=== PATIENT | female | born 1945 | race Caucasian/White ===

== ENCOUNTER 2016-11-06 12:14 | Inpatient (IN) | payer MEDICARE, BC ==
--- NOTE | 2016-11-06 12:39 | RAD ---
INDICATION: Code souza COMPARISON: None TECHNIQUE: Noncontrast axial source images were acquired from the skull base to the vertex. FINDINGS: Ventricles/sulci: The ventricles and cisterns are normal in size and configuration for age. Brain parenchyma: There is no focal parenchymal finding, evidence of intracranial mass, or intracranial mass effect. Intracranial hemorrhage:None. Extra-axial spaces: There are no abnormal extra axial fluid collections or evidence of extra-axial mass. Calvarium: There is no calvarial fracture or other calvarial abnormality. Scalp: There is no evidence of scalp or extracalvarial soft tissue abnormality. Paranasal sinuses/mastoid: The paranasal sinuses and mastoid air cells are clear. Other: There are vascular calcifications. IMPRESSION: No acute intracranial findings Findings called to ED at 1236 hours
[2016-11-06] MEDS ORDERED: Aspirin TAB* 325 MG PO ONE (13:12)
--- NOTE | 2016-11-06 13:39 | RAD ---
HISTORY: Stroke COMPARISONS: August 21, 2016 VIEWS:1: Single frontal portable view of the chest at 1:20 PM FINDINGS: LINES AND TUBES: None. CARDIOMEDIASTINAL SILHOUETTE: The cardiomediastinal silhouette is normal for portable technique. PLEURA: The costophrenic angles are sharp. No pleural abnormalities are noted. LUNG PARENCHYMA: The lungs are clear. ABDOMEN: The upper abdomen is clear. There is no subphrenic gas. BONES AND SOFT TISSUES: No bone or soft tissue abnormalities are noted. IMPRESSION: NO ACTIVE CARDIOPULMONARY DISEASE.
[2016-11-06 13:42] LABS: Hematocrit 39 % (35-47); Hemoglobin 12.7 g/dl (12.0-16.0); Mean Corpuscular HGB Conc 33 g/dl (31-36); Mean Corpuscular Hemoglobin 29 pg (27-31); Mean Corpuscular Volume 87 fL (80-97); Mean Platelet Volume 9 um3 (7.4-10.4); Red Blood Count 4.41 10^6/ul (4.0-5.4); Red Cell Distribution Width 15 % (10.5-15); White Blood Count 8.3 10^3/ul (3.5-10.8)
[2016-11-06 13:54] LABS: Albumin 3.6 g/dL (3.2-5.2); BUN/Creatinine Ratio 32.1 (8-20); Calcium 9.4 mg/dL (8.6-10.3); EGFR African American 146.2 (>60); EGFR Non-African American 113.7 (>60); Globulin 3.2 g/dL (2-4); HDL Cholesterol 57.9 mg/dL; Potassium 3.7 mmol/L (3.5-5.0); Total Bilirubin 0.3 mg/dL (0.2-1.0); Total Protein 6.8 g/dL (6.4-8.9)
[2016-11-06 13:55] LABS: Troponin I 0.01 ng/mL (<0.04)
[2016-11-06] MEDS ORDERED: Acetaminophen TAB* 325 MG PO PRN (14:38)
[2016-11-06] MEDS ORDERED: Ondansetron INJ* 2 MG/ML VIAL IV PRN (14:38)
[2016-11-06 14:40] LABS: Urine Bacteria Absent (Absent); Urine Bilirubin Negative (Negative); Urine Glucose Negative (Negative); Urine Nitrite Negative (Negative)
[2016-11-06] MEDS ORDERED: Dextrose 50% Syringe 50 ML* 25 GM/50 ML SYRINGE IV PUSH PRN (14:50)
[2016-11-06] MEDS ORDERED: Nicotine Inhaler* 10 MG AMP INH PRN (14:58)
[2016-11-06 15:11] LABS: C Reactive Protein 21.47 mg/L (< 5.00)
[2016-11-06] MEDS ORDERED: Mouth Piece, Nicotine* 1 EACH CARTRIDGE INH SCH (15:14)
--- NOTE | 2016-11-06 15:17 | RAD ---
HISTORY: Neuropathy after fall, hyperreflexia COMPARISONS: None TECHNIQUE: Multiple contiguous axial CT scans were obtained of the cervical spine without intravenous contrast, with coronal and sagittal multiplanar reformations. FINDINGS: BRAIN: The visualized brain is unremarkable CENTRAL CANAL: Evaluation of the central canal is limited on CT technique; however, there is no obvious canalicular mass or epidural hemorrhage. ALIGNMENT: There is straightening of the cervical lordosis. VERTEBRAL BODIES: There is multilevel anterolateral marginal osteophyte formation. There is no displaced fracture there is a well-corticated bone fragment along the right facet joint at C3. JOINTS: There is facet osteoarthritic change. There is no subluxation or dislocation. MUSCULATURE: Unremarkable INTERVERTEBRAL DISCS: There is diffuse loss of intervertebral disc height. AXIAL IMAGES: C2-C3: There is no osseous neural foraminal narrowing or central canal stenosis. C3-C4: There is bilateral uncovertebral and facet hypertrophy. There is severe bilateral neural foraminal narrowing. There is central canal stenosis. C4-C5: There is bilateral uncovertebral and facet hypertrophy. There is severe bilateral foraminal narrowing. There is no significant osseous central canal stenosis. C5-C6: There is bilateral uncovertebral and facet hypertrophy. There is moderate bilateral foraminal narrowing. There is no osseous stenosis C6-C7: There is no osseous neural foraminal narrowing or central canal stenosis. C7-T1: There is no osseous neural foraminal narrowing or central canal stenosis. SOFT TISSUES: The visualized soft tissues of the neck are unremarkable. The prevertebral fat stripe is preserved. OTHER: None. IMPRESSION: DEGENERATIVE DISC DISEASE AND OSTEOARTHRITIS. THERE IS NO ACUTE OSSEOUS INJURY TO THE CERVICAL SPINE
[2016-11-06] MEDS ORDERED: Albuterol HFA INHALER* 8 gm MDI INH PRN (15:18)
--- NOTE | 2016-11-06 15:35 | RAD ---
HISTORY: Elbow swelling and pain status post fall COMPARISONS: None VIEWS: 3, Frontal, lateral, and oblique views of the right elbow FINDINGS: BONE DENSITY: Normal. BONES: There is no displaced fracture. There are enthesophytes of the olecranon JOINTS: There is no arthropathy. ALIGNMENT: There is no dislocation. SOFT TISSUES: Unremarkable. OTHER FINDINGS: None. IMPRESSION: NO ACUTE OSSEOUS INJURY. IF SYMPTOMS PERSIST, RECOMMEND REPEAT IMAGING.
--- NOTE | 2016-11-06 15:41 | RAD ---
Indication: Right knee pain after fall 2 views of the right knee demonstrates calcifications along the quadriceps tendon. Calcification is noted along the infrapatellar tendon as well. No joint effusion is noted. IMPRESSION: No fractures identified. Calcifications along the quadriceps tendon and infrapatellar tendon.
--- NOTE | 2016-11-06 16:33 | CONS ---
CONSULTATION REPORT: DATE OF CONSULT: 11/06/16 REQUESTING PHYSICIAN: Dr. Nam. REASON FOR CONSULT: Facial weakness, difficulty walking, dizziness. HISTORY OF PRESENT ILLNESS: Lakshmi Molina is a 71-year-old woman with a history of hypertension, diabetes, COPD, high cholesterol, stroke, anxiety, depression, who now comes in with weakness, difficulty walking in the setting of a recent fall, injury to the right knee and elbow, along with cough, right facial palsy, and headache. At baseline she has COPD with shortness of breath and coughing, difficulty with dizziness intermittently for 2 months. There has been an increased frequency of urination, and recent increase in headaches. Lakshmi indicates about 2 to 3 days ago, she was on her way back from store when she tripped and fell. She hurt her right leg and particularly landed on her right knee with a slight breakage of the skin on her knee, and on her right arm. She demonstrated an area near her right elbow which showed area that was healing, however, was surrounded by redness and warmth. Her right knee was enlarged and warm. She also has a history of intermittent numbness in her hands at baseline and now her hands are constantly numb. Around the same time, she started getting change in speech and change in facial expression. She was worried about stroke as she had an event 20 years ago where she sneezed repeatedly and her mouth went crooked; she was told that she had a stroke. Of note, she denies any recent bug bites or rashes. There has been some pain in the right axillary area off and on for a long time. At baseline, she is supposed to be wearing oxygen, she has COPD and continues to smoke. She indicates she does not wear oxygen because she has cats that will alexandra after the oxygen cord. Her son indicated that her walking is so severe, she did have a hard time walking a few feet. Her legs are weak, but there is no numbness of the legs. She does get short of breath when she walks. When asked about urination, she indicates her frequency has increased and she goes every 15 minutes. She has had no incontinence. There has been no change in smell of urine and no burning with urination. PAST MEDICAL HISTORY: Ms. Molina's past medical history includes diabetes, type 2; hypertension; high cholesterol; depression; anxiety; COPD. She has had previous hysterectomy with bilateral salpingo-oophorectomy. She follows with Dr. Winn at [facility]. MEDICATIONS: She had on her list, but did not know the doses and frequency, they include: 1. Advair. 2. Fluticasone propionate. 3. Spiriva. 4. ProAir. 5. Valsartan. 6. Atorvastatin. 7. Buspirone. 8. Metformin. 9. Amlodipine. 10. Glipizide. 11. Citalopram. She believes most of the medications are once a day. ALLERGIES: She denies any drug allergies. FAMILY HISTORY: Includes a mother who in her 70s with bad heart and breast cancer. Father who around 68 years of age of heart disease. She is not in contact with her siblings. She did have one brother who of cirrhosis of liver in the setting of alcohol use and another sister, who of polio and a bad kidney. Her son at bedside is alive and well, and she had a daughter who in a motor vehicle accident. SOCIAL HISTORY: Lakshmi Molina lives with her , who she describes as a quadriplegic. He has multiple sclerosis. She is his primary caregiver. Her son at bedside indicates that he and his daughter are going to take care of his father while she is in hospital. PHYSICAL EXAM: Lakshmi Molina's blood pressure was 186/58, her pulse was 94, respiratory rate 23, saturation 95%, and temperature is 97.2 degrees Fahrenheit. She had a regular cardiac rhythm. Her lungs had rhonchi on the right, clear on the left. No carotid bruit. Poor hygiene was noted. There was a lac on the right arm above the elbow with redness and warmth. Small lac on the knee with a warm swollen right knee and question of some discoloration on the right leg compared to the left. Her peripheral pulses were intact in the dorsalis pedis and posterior tibial. No other rashes were noted. She was awake, alert. She showed appropriate concern, frustration over cost of getting the hearing aids, the potential of being admitted due to her 's problems , and was clearly able to express her concerns. Her pupils were equal and responsive to light from 2 to 1 mm. Her fundi were hard to appreciate. She had full extraocular movements with no nystagmus, full saha to confrontation. Her facial expression was asymmetric with a right peripheral 7th nerve palsy. She could not completely close the right eye; it remained open at about 2 mm with effort to close it. Her facial sensation was equal, palate was upgoing, and tongue was midline. Of note, dry mucosa was noted. Sternocleidomastoid and trapezius were 5/5 in strength. Hearing to finger rub was decreased on the left hand side. There was no pronator drift. She gave good strength in her upper extremities and in her lower extremities with the exception of right knee flexion, which was painful. Knee extension, she was able to give good strength. Her reflexes, however, were brisk 3+ throughout with the exception of the ankles that were 2+. Toes were equivocal. Vibration sensation was felt briefly at the toes, decreased at the ankles by 20 seconds. Proprioception was intact. She denied any asymmetry of pinprick, cold, or light touch. She was able to do [id number] movements with the arms and [id number] movements in the left leg, the right leg was too painful. Gait was not tested given clinical status. LABORATORY DATA: Includes CBC which is within normal limits with a white count of 8.3. Her INR and PTT were normal. Her complete metabolic panel showed a BUN and creatinine ratio which is elevated at 32.1 and glucose was low at 66. She had a nonfasting lipid profile, which showed a total cholesterol of 292, LDL 206, HDL 57.9, and triglycerides 139. Her liver function tests were otherwise within normal limits and lactate was 0.8. IMPRESSION AND PLAN: Lakshmi Molina is a 71-year-old woman with a history of hypertension, diabetes, chronic obstructive pulmonary disease, high cholesterol , history of stroke, anxiety, depression, now with weakness, increased bilateral hand numbness, and difficulty walking in the setting of recent fall, injury to her right knee and elbow, cough, right facial palsy, headache, all in the setting of being primary caregiver for her who is described to be a quadriplegic, requiring full care secondary to multiple sclerosis. At this time, given the constellation of symptoms, I would admit her to hospital. 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 Given, however, the timing of her other symptoms and difficulty walking, I would proceed in getting an MRI of the brain. We will check Lyme serology and start her on doxycycline. I would use artificial tears for eyes during the day and Lacri-Lube to protect her eye at night. She does have history of intermittent numbed hands before fall and now constantly numbed hands in the setting of hyperreflexia as well as worsening of walking after a fall. I will check MRI of the cervical spine for myelopathy, and if it will take time before obtaining this, I would get a CT of the C-spine to ensure stability now. Infection certainly may be playing a role in her presentation. Differential diagnosis includes infection in the LANGUAGE INTERPRETER with Lyme, potential pneumonia or chest process, and chest x-ray is pending as well as infection of lacerations from her fall. She has also had increased frequency of urination and I would check a urinalysis. She has had trauma to her right arm and her right knee and needs further evaluation in this regard. Respiratory status is of concern not only from the infection standpoint, but she is also short of breath at baseline with chronic obstructive pulmonary disease and continues to smoke. She notes that she should be on oxygen, but is not and one must question whether this may be playing a role in her endurance and weakness with walking. She will need PT assessment. Also suggests Social Work involvement as the patient is primary caregiver for her . There will be need to assess services, safety, walking aids to ensure not only her health, but also health of the family. TIME SPENT: An hour and 25 minutes was spent in patient's care and case was discussed with hospitalist team. [id number]/[facility] #: [id number] LORETO
[2016-11-06] MEDS: Insulin LISPRO* 1 UNITS UNIT SUBCUT SCH (17:28)
[2016-11-06] MEDS: DOXYcycline CAP(*) 100 MG PO SCH ×2 (17:34→21:41)
[2016-11-06] MEDS: Nicotine PATCH 14 MG/24 HR* PATCH TRANSDERM SCH (17:38)
[2016-11-06] MEDS: Artificial Tears* 15 ML BTL RIGHT EYE SCH ×5 (17:39→22:58)
--- NOTE | 2016-11-06 18:20 | HP ---
CC: Dr. Winn* MEDICINE HISTORY AND PHYSICAL: DATE OF ADMISSION: 11/06/16 PROVIDER: Catie Banerjee NP ATTENDING PHYSICIAN: Dr. Shaneka Figueroa * (as dictated by Catie Banerjee NP). CONSULTING PHYSICIAN: Dr. Gertrudis Miramontes. PRIMARY CARE PROVIDER: Dr. Yamilet Winn. CHIEF COMPLAINT: Right facial droop and recent fall. HISTORY OF PRESENT ILLNESS: Ms. Lakshmi Molina is a 71-year-old female, who presents today after sustaining a fall 2 days ago. The patient states that she was coming home from a store, had a mechanical fall when she tripped on the sidewalk and fell on her right side. She was helped up by her granddaughter, but did not pursue any further evaluation at that time. She denies any injury to her head or loss of consciousness. However, since that time, she reports feeling intermittent dizziness as well as difficulty speaking. She also endorses new right facial droop that first appeared 2 days ago. The patient was seen by her 's caregiver from visiting nurse services, who recommended she come into the ER for further evaluation. The patient also reports a history of COPD and states at baseline, she cannot walk more than a few feet without becoming short of breath. She does not wear a home oxygen due to her cats playing with her tubing, and still smokes a pack a day of cigarettes. Of note, the patient is a full caregiver of her who is a quadriplegic secondary to MS. Here in the ER, the patient was a Code Vieyra, though her initial CT scan of the brain showed no acute intracranial findings. The patient denies any recent fever, chills, cold, or flu symptoms. She denies any changes to her appetite. She denies chest pain, lower extremity swelling, orthopnea, or palpitations. She denies any hemoptysis, although she does endorse dyspnea with exertion, which she states is chronic as well as a nonproductive cough. She denies abdominal pain, but reports nausea on occasion , which has been ongoing for several months. She denies any dysuria. She does report tingling and numbness to both hands. She states she is hard of hearing at baseline, but denies any new joint or muscle pains and rashes. PAST MEDICAL HISTORY: Per the patient: 1. Type 2 diabetes. 2. Hypertension. 3. Hyperlipidemia. 4. Anxiety. 5. Depression. 6. COPD. 7. Suspected history of CVA approximately 20 years ago. MEDICATIONS: Home medications which have been confirmed with the patient's PCP: 1. Albuterol 2 puffs inhaled q.6 hours p.r.n. 2. Valsartan 320 mg daily. 3. Spiriva 1 capsule inhaled daily. 4. Metformin 500 mg with meals. 5. Glipizide 10 mg b.i.d. 6. Advair 500/50 one puff inhaled b.i.d. 7. Citalopram 20 mg daily. 8. Buspirone 7.5 mg b.i.d. 9. Atorvastatin 40 mg daily. 10. Amlodipine 2.5 mg daily. ALLERGIES: Include CODEINE. FAMILY HISTORY: She reports a mother with history of heart disease and diabetes and a father with history of heart disease. SOCIAL HISTORY: The patient smokes a pack per day. She has been smoking since the age of 12. She denies any alcohol or illicit drug use. She lives at home. She has always worked from home. She is currently the full caregiver for her , who has multiple sclerosis and is a quadriplegic. Her healthcare proxy is her and her son, David Velasco, who can be reached at [phone]. REVIEW OF SYSTEMS: As per HPI. PHYSICAL EXAMINATION GENERAL: Ms. Molina is a 71-year-old female who is lying in ED stretcher, in no acute distress. She has a visible right facial droop. She is mildly disheveled. VITAL SIGNS: Temperature 97.2, heart rate 94, respiratory rate 18, blood pressure 156/76, and O2 saturation is 95% on room air. HEENT: Head is atraumatic, normocephalic. Face: The patient does have a right - sided facial droop, extends from the eye to the mouth. Sclerae are anicteric. Oral mucosa does appear moist. NECK: Supple. No lymphadenopathy appreciated. CARDIAC: S1 and S2. Heart sounds regular rate and rhythm. No murmurs, rubs, or gallops. The patient has 1+ distal pulses. RESPIRATORY: Lungs are clear to auscultation, but there are some mild bibasilar crackles. No accessory muscle use is noted. ABDOMEN: Soft, nontender, nondistended. Bowel sounds present times all 4 quadrants. MUSCULOSKELETAL: There is no clubbing or cyanosis. The patient has full range of motion. There is some right knee edema, but the patient is able to fully extend and flex her joint. NEUROLOGIC: The patient moves all extremities again with right facial droop. She follows all commands. Analytical Scientist are equal bilaterally. Sensation is intact to light touch to lower extremities. PSYCH: The patient is alert and oriented x3. Affect is appropriate. SKIN: There is a right upper arm abrasion just above the elbow with surrounding erythema. There is mild edema around the right knee that is diffuse. There is also a left upper arm ecchymotic area. The patient's feet show no signs of ulcerations, although are dirty. The patient has visible dirt on both of her feet on bottom. DIAGNOSTIC STUDIES/LAB DATA: CBC: WBC 8.3, hemoglobin 12.7, hematocrit 39, platelet count 256. CMP: Sodium 137, potassium 3.7, chloride 107, carbon dioxide 23, BUN 17, creatinine 0.53, glucose 66, lactic acid 0.8, calcium 9.4. Total bilirubin 0.3, AST 14, ALT 12, alk phos 102. Troponin 0.01. Total protein 6.8. Albumin 3.6. CT of the brain with no acute intracranial findings. Chest x-ray shows no active cardiopulmonary disease. The patient's EKG showed sinus rhythm, rate 86 with no T-wave inversions or ST elevations. There are no old EKGs for comparison. ASSESSMENT AND PLAN: Ms. 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 She will be admitted as an observation patient. Plan is as follows: 1. Birmingham's palsy. The patient was seen in consult by Neurology. We will check an MRI of the brain in order to fully rule out any cerebrovascular accident and continue the patient on neurological checks. I will also check an A1c and fasting lipid profile in the morning. [place] that go outside and has concern for potential tick exposure, so we will check a Lyme serology and start the patient on doxycycline. The patient is ordered eye drops for eye care and nighttime ophthalmic ointment. 2. Status post fall. The patient fell on her right side and there is redness and abrasions to the patient's right elbow, but no concerns for fluctuance or masses over the patient's elbow at this time. We will continue to monitor that site and x- ray the joint itself. Additionally, we will also take an x-ray of the patient's lower extremity, the knee, where there is again some diffuse edema and mild erythema. The joint itself does not appear to be infected as there is no fluctuance or masses noted and it is not extremely tender. The patient does have full range of motion through both the knee and elbow joints. The patient does however complain of bilateral hand numbness and hyperreflexia and for this reason, we will check an MRI of the C-spine in order to rule out any other acute injury there. Continue with neurovascular checks. The patient is ordered PT and OT consult. 3. Type 2 diabetes. The patient does not check her blood sugars at home. She states that she usually can tell when she is hypoglycemic. She is on metformin and glipizide at home. We will switch her to lispro sliding scale insulin here and check an hemoglobin A1c and order diabetes education in order to provide the patient with a glucometer as she presented to the hospital here with a glucose of 66 per her labs and we will have the patient's blood sugar checked at this time and she may have also fallen because she may be prone to hypoglycemia and does not seem to fully understand when to take her medications and when not to take her medications in regards to food. 4. Hypertension. The patient is mildly hypertensive at this time. for cerebrovascular accident. I will continue her home medications at this time, which includes valsartan and amlodipine. 5. History of depression and anxiety. Continue home citalopram and BuSpar. 6. History of chronic obstructive pulmonary disease. Continue inhalers. The patient is on albuterol, Spiriva, and Advair. 7. FEN. The patient is ordered consistent carbohydrate diet. 8. DVT prophylaxis. She is ordered subcu heparin. 9. Code status. The patient is a full code. TIME SPENT: Time spent on this admission was approximately 60 minutes, more than half the time was spent [id number] with the patient obtaining history and physical, performing the physical examination, and reviewing the plan of care. Plan of care was also reviewed with my attending, Dr. Figueroa, who is in agreement. CATIE BANERJEE, BENCH LOOM WEAVER [id number]/[facility] #: [id number] LORETO
[2016-11-06] MEDS: Mometasone/Formoter 200/5 MDI INH SCH (19:46)
[2016-11-06] MEDS: Artificial Tear OPHTH.OINT* 3.5 GM RIGHT EYE SCH (21:40)
[2016-11-06] MEDS: Heparin VIAL(*) 5000 UNITS/ML VIAL (FIVE THOUSAND) SUBCUT SCH (21:41)
[2016-11-06] MEDS: busPIRone TAB* 15 MG PO SCH (21:41)
--- NOTE | 2016-11-06 21:41 | RAD ---
Indication: Neck pain, right facial droop. Image sequences: Sagittal T1, T2, STIR, axial T1 and T2-weighted images of the cervical spine were obtained. The vertebral bodies appear normal in height and alignment. Normal bone marrow signal is noted. At C2-C3 there is no disc protrusion. No central foraminal stenosis is noted. At C3-C4 degenerative disc disease with broad-based protrusion and spondylitic ridge flattens the ventral spinal cord. Bilateral uncovertebral hypertrophy is noted. There is mild to moderate spinal stenosis with suggestion of myelomalacia. At C4-C5 spondylitic ridge flattens the thecal sac and abuts the spinal cord. Bilateral uncovertebral joint hypertrophy narrows both foramen at this level. Mild spinal stenosis is noted. At C5-C6 spondylitic ridge flattens the thecal sac. No central foraminal stenosis is noted. At C6-C7 spondylitic ridge flattens the thecal sac. No central or foraminal stenosis is noted. IMPRESSION: Multilevel degenerative disc disease is noted most severe at C3-C4 with spondylytic ridge and broad-based protrusion causing moderate degree of spinal stenosis. Increased signal is noted in the spinal cord suggestive of myelomalacia at this level. Multiple other levels of spondylitic ridge is noted. Mild spinal stenosis is noted at C4-C5.
--- NOTE | 2016-11-06 21:43 | RAD ---
Indication: Fall, confusion and facial droop. Image sequences: Sagittal and axial T1, axial T2, FLAIR, diffusion and susceptibility weighted images of the brain were obtained. Ventricular structures are midline. No midline shift is noted. The extra-axial spaces are unremarkable. Diffusion-weighted images demonstrates no restriction of diffusion. The FLAIR images demonstrate periventricular signal abnormalities likely representing minor microvascular change in the periventricular white matter as well as in the jessica. No evidence of susceptibility artifact or residual hemosiderin is noted. Mastoid air cells and paranasal sinuses are unremarkable. IMPRESSION: Periventricular lucency consistent with chronic ischemic White matter change. No intracranial mass or hemorrhage is noted. No restriction of diffusion is identified.
[2016-11-06] MEDS: Nicotine Patch Removal NOTE PATCH OFF SCH (21:49)
[2016-11-07] MEDS: Artificial Tears* 15 ML BTL RIGHT EYE SCH ×12 (02:43→22:44)
[2016-11-07 05:00] LABS: Hematocrit 36 % (35-47); Hemoglobin 11.9 g/dl (12.0-16.0); Mean Corpuscular HGB Conc 33 g/dl (31-36); Mean Corpuscular Hemoglobin 29 pg (27-31); Mean Corpuscular Volume 88 fL (80-97); Mean Platelet Volume 9 um3 (7.4-10.4); Red Blood Count 4.14 10^6/ul (4.0-5.4); Red Cell Distribution Width 15 % (10.5-15); White Blood Count 6.3 10^3/ul (3.5-10.8)
[2016-11-07 05:15] LABS: BUN/Creatinine Ratio 21.6 (8-20); EGFR African American 152.9 (>60); EGFR Non-African American 118.9 (>60); HDL Cholesterol 47.7 mg/dL; Potassium 3.5 mmol/L (3.5-5.0)
[2016-11-07] MEDS: Heparin VIAL(*) 5000 UNITS/ML VIAL (FIVE THOUSAND) SUBCUT SCH ×3 (06:00→21:02)
[2016-11-07] MEDS: Insulin LISPRO* 1 UNITS UNIT SUBCUT SCH ×3 (07:09→16:22)
[2016-11-07] MEDS: amLODIPine TAB* 5 MG PO SCH (07:39)
[2016-11-07] MEDS: Aspirin Low Dose CHEW TAB* 81 MG PO SCH (07:40)
[2016-11-07] MEDS: Atorvastatin* 40 MG TAB PO SCH (07:40)
[2016-11-07] MEDS: busPIRone TAB* 15 MG PO SCH ×2 (07:41→21:02)
[2016-11-07] MEDS: Citalopram TAB* 20 MG PO SCH (07:42)
[2016-11-07] MEDS: DOXYcycline CAP(*) 100 MG PO SCH (07:43)
[2016-11-07] MEDS: Valsartan TAB* 160 MG PO SCH (07:43)
[2016-11-07] MEDS: Nicotine PATCH 14 MG/24 HR* PATCH TRANSDERM SCH (07:44)
[2016-11-07] MEDS: Tiotropium CAP.INH* CAP.INH/18 MCG INH SCH (07:46)
[2016-11-07] MEDS ORDERED: Spiriva Inhaler DEVICE* 1 EACH DEVICE ONE (09:00)
[2016-11-07] MEDS: Mometasone/Formoter 200/5 MDI INH SCH ×2 (09:45→19:32)
--- NOTE | 2016-11-07 10:34 | CONSULT ---
Neurological Deficit HPI - HPI Summary HPI Summary: Patient is a 71 y/o F who presents to the ED s/p dizziness and fall 2 days ago. She reports slurred speech, right-sided weakness, right-sided facial droop, and problems swallowing since. She also reports a headache and trouble walking. She states that she has been taking Ibuprofen for the headache with little alleviation. She denies taking ASA or other blood thinners, but states she is on HTN medication. PMHx of CVA years ago per to pt. - History of Current Complaint Hx Obtained From: Patient ?: No Onset/Duration: Gradual Onset Severity Initially: Mild Severity Currently: Severe Location: Facial Right, RUE, LUE, RLE, LLE Character: Numbness, Tingling, Motor Weakness, Impaired Speech Aggravating Factor(s): Exertion Alleviating Factor(s): Rest - Allergies/Home Medications Allergies/Adverse Reactions: Allergies Allergy/AdvReac Type Severity Reaction Status Date / Time Codeine Allergy Intermediate Nausea And Verified 11/06/16 12:53 Vomiting Home Medications: Home Medications Albuterol Sulfate [Proair Hfa] 2 puff INH Q6H PRN 11/06/16 [History Confirmed ] Amlodipine Besylate [Amlodipine Besylate] 2.5 mg PO DAILY 11/06/16 [History Confirmed 11/06/16] Atorvastatin* [Lipitor*] 40 mg PO DAILY 11/06/16 [History Confirmed 11/06/16] Buspirone HCl [Buspirone HCl] 7.5 mg PO BID 11/06/16 [History Confirmed 11/06/16 ] Citalopram TAB* [CeleXA TAB*] 20 mg PO DAILY 11/06/16 [History Confirmed ] Fluticasone-Salmeterol 500-50* [Advair Diskus 500-50*] 1 puff INH BID 11/06/16 [ History Confirmed 11/06/16] Glipizide [Glipizide] 10 mg PO BID 11/06/16 [History Confirmed 11/06/16] Metformin HCl [Metformin HCl] 500 mg PO AC 11/06/16 [History Confirmed 11/06/16] Tiotropium CAP.INH* [Spiriva CAP.INH*] 1 cap.inh INH DAILY 11/06/16 [History Confirmed 11/06/16] Valsartan [Valsartan] 320 mg PO DAILY 11/06/16 [History Confirmed 11/06/16] Home Medications: Home Medications Medication Instructions Recorded Confirmed Type Albuterol Sulfate [Proair Hfa] 2 puff INH Q6H PRN 11/06/16 11/06/16 History Amlodipine Besylate [Amlodipine 2.5 mg PO DAILY 11/06/16 11/06/16 History Besylate] Atorvastatin* [Lipitor*] 40 mg PO DAILY 11/06/16 11/06/16 History Buspirone HCl [Buspirone HCl] 7.5 mg PO BID 11/06/16 11/06/16 History Citalopram TAB* [CeleXA TAB*] 20 mg PO DAILY 11/06/16 11/06/16 History Fluticasone-Salmeterol 500-50* 1 puff INH BID 11/06/16 11/06/16 History [Advair Diskus 500-50*] Glipizide [Glipizide] 10 mg PO BID 11/06/16 11/06/16 History Metformin HCl [Metformin HCl] 500 mg PO AC 11/06/16 11/06/16 History Tiotropium CAP.INH* [Spiriva 1 cap.inh INH DAILY 11/06/16 11/06/16 History CAP.INH*] Valsartan [Valsartan] 320 mg PO DAILY 11/06/16 11/06/16 History Allergies: Allergies Allergy/AdvReac Type Severity Reaction Status Date / Time Codeine Allergy Intermediate Nausea And Verified 11/06/16 12:53 Vomiting Review of Systems - Review of Systems Constitutional: Reports: see HPI, weakness Eyes (ROS): Reports: see HPI Ears, Nose, Mouth, Throat: Reports: no symptoms reported Respiratory: Reports: no symptoms reported Cardiology: Reports: no symptoms reported Gastrointestinal/Abdominal: Reports: no symptoms reported Musculoskeletal: Reports: joint pain - right knee and shouder Neurological: Reports: anxiety, numbness, tingling, weakness Hematologic/Lymphatic: Reports: no symptoms reported All Other Systems: Reviewed and Negative Temp Pulse Resp BP Pulse Ox 97.4 F 73 20 155/57 96 11/07/16 07:31 11/07/16 07:31 11/07/16 07:31 11/07/16 07:31 11/07/16 07:31 General Appearance: Well appearing HEENT: Normocephalic, atraumatic, ears and nose without masses or lesions, Other - right facial Neck: Symmetric without masses or tracheal deviation Chest: Normal respiratory effort Cardiovascular: Good color, warmth and capillary refill in extremities Skin: No visible rashes, lesions or ulcers Neurological/Psychiatric: Other - AAOx3, right periperhal facial palsy, bilateral UE weakness, and numbness with decrease sensation, Results - Results Lab Results: Laboratory Results - last 24 hr 11/06/16 11/06/16 11/07/16 14:20 15:44 04:38 WBC 6.3 RBC 4.14 Hgb 11.9 L Hct 36 MCV 88 MCH 29 MCHC 33 RDW 15 Plt Count 237 MPV 9 Neut % (Auto) 51.9 Lymph % (Auto) 41.2 Branch % (Auto) 5.8 Eos % (Auto) 0.6 Baso % (Auto) 0.5 Absolute Neuts (auto) 3.2 Absolute Lymphs (auto) 2.6 Absolute Monos (auto) 0.4 Absolute Eos (auto) 0 Absolute Basos (auto) 0 Absolute Nucleated RBC 0.01 Nucleated RBC % 0.1 Sodium Potassium Chloride Carbon Dioxide Anion Gap BUN Creatinine Est GFR ( Amer) Est GFR (Non-Af Amer) BUN/Creatinine Ratio Glucose POC Glucose (mg/dL) 73 L Calcium Triglycerides Cholesterol LDL Cholesterol HDL Cholesterol Urine Color Yellow Urine Appearance Clear Urine pH 5.0 Ur Specific [place] 1.020 Urine Protein 3+(>=500 mg/dl) H Urine Ketones Negative Urine Blood Negative Urine Nitrate Negative Urine Bilirubin Negative Urine Urobilinogen Negative Ur Leukocyte Esterase Trace H Urine WBC (Auto) 1+(6-10/hpf) H Urine RBC (Auto) 2+(6-10/hpf) H Ur Squamous Epith Cells Present H Urine Bacteria Absent Urine Glucose Negative 11/07/16 11/07/16 04:38 06:35 WBC RBC Hgb Hct MCV MCH MCHC RDW Plt Count MPV Neut % (Auto) Lymph % (Auto) Branch % (Auto) Eos % (Auto) Baso % (Auto) Absolute Neuts (auto) Absolute Lymphs (auto) Absolute Monos (auto) Absolute Eos (auto) Absolute Basos (auto) Absolute Nucleated RBC Nucleated RBC % Sodium 139 Potassium 3.5 Chloride 108 Carbon Dioxide 26 Anion Gap 5 BUN 11 Creatinine 0.51 Est GFR ( Amer) 152.9 Est GFR (Non-Af Amer) 118.9 BUN/Creatinine Ratio 21.6 H Glucose 92 POC Glucose (mg/dL) 93 Calcium 9.0 Triglycerides 176 Cholesterol 263 LDL Cholesterol 180 HDL Cholesterol 47.7 Urine Color Urine Appearance Urine pH Ur Specific [place] Urine Protein Urine Ketones Urine Blood Urine Nitrate Urine Bilirubin Urine Urobilinogen Ur Leukocyte Esterase Urine WBC (Auto) Urine RBC (Auto) Ur Squamous Epith Cells Urine Bacteria Urine Glucose Other Results/Reports: A/P: 71 y/o F presents s/p dizziness and fall about 3 days ago. She reports slurred speech, right-sided weakness, right-sided facial droop, and problems swallowing since. She also reports a headache and trouble walking. Pt received ASA in ED course. right knee injury MRI showed Severe Cervical stenosis at C3/4 with myelopathy, consiting with some of her central cord syndrome Plan Neurology workup for slurred speech and right peripheral facial palsy Stop smocking Medical clearance Tentatively surgical plan for possible ACDF C3/4 with close neuromonitering and blood pressure support due to severe vascular risks for worsening spinal cord injury. will discuss with Dr. Be Discussed with patient and primary team. .
[2016-11-07 11:26] LABS: Urine Bacteria Absent (Absent); Urine Bilirubin Negative (Negative); Urine Glucose Negative (Negative); Urine Nitrite Negative (Negative)
--- NOTE | 2016-11-07 11:27 | PN ---
CC: Dr. Winn PROGRESS NOTE: DATE OF VISIT: 11/07/16 PRIMARY CARE PHYSICIAN: Dr. Winn. HISTORY OF PRESENT ILLNESS: Lakshmi Molina was admitted last night with multiple symptoms after a fall with trauma to the right hand side, increased hand numbness, difficulty walking along with new facial weakness. There have been no new symptoms since last night. She has had workup including a CT of the cervical spine, which showed no evidence of fracture; however, she went on to have the MRI of the cervical spine which showed significant pathology with multilevel degenerative disease, most significant at C3, C4 with spinal stenosis and changes in the cord. This film was reviewed directly. There was some movement artifact. She also went on to have an MRI of the brain looking for a cause of her symptoms. There was evidence of old small vessel ischemic disease in the jessica, periventricular and subcortical region with no evidence of new stroke. This film was also reviewed directly. Of note, there was no evidence of hemorrhage. She had evaluation of her right elbow and right knee, which showed no evidence of fracture. There were some calcifications noted of the tendons on her right knee film, please see report for details. Her chest x-rays did not show evidence of infiltrates. PHYSICAL EXAM: Today, her temperature was 97.4 degrees Fahrenheit, her T-max since admission was 99 degrees Fahrenheit, she had a heart rate of 73, respiratory rate of 20, saturation was 96%, and blood pressure most recently was 155/57 with a blood pressure last night systolic reaching the 180s. She had a regular cardiac rhythm. Her lungs were clear to auscultation. She had evidence of trauma on her right side with a warm, swollen right knee. She was awake, alert, showed appropriate concern. Her facial expression was asymmetric with weakness in the peripheral 7th distribution. On today's visit, she was just able to close her right eye. She had profound weakness in the right upper and lower face with associated difficulty enunciating, but with otherwise normal language function. She had full extraocular movements, full saha to confrontation. Her facial sensation was symmetric. Palate was upgoing, tongue was midline. There was no pronator drift. She gave good strength in her arms and in her left leg. In her right leg, her hip flexion was limited at 4+/5. Knee flexion and extension was limited by pain. Foot dorsiflexion was strong. Her reflexes were brisk at 3+ throughout with the exception of the ankles that were 2+. There was no clonus noted. She denied any asymmetries to light touch. She had gotten out of bed with assistance of physical therapist and walker and walked favoring her left leg. DIAGNOSTIC STUDIES/LAB DATA: Includes, CBC which shows a normal white count, hemoglobin slightly low at 11.9 and otherwise normal hematocrit and platelets with no left shift. Her metabolic panel showed an elevated BUN and creatinine, which was improved from yesterday and is currently 21.6. Her lipid profile reveals triglycerides of 176, cholesterol 263, LDL 180, and HDL 47.7. Her urinalysis showed 3+ protein, trace esterase, 1+ white blood cells, 2+ red blood cells, as well as squamous epithelial cells. Culture is pending. MRI of the brain, cervical spine was reviewed directly and pertinent results were listed as in HPI. Cervical spine CT was reviewed last night, which showed no evidence of fracture. See report for details. Chest x-ray was also reviewed directly as well as report for x-ray of the right knee and right elbow, which did not reveal fracture. MEDICATIONS: MAR was reviewed. 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 Her findings on MRI of the cervical spine are consistent with her history. She has significant pathology in her neck, which could explain her hyperreflexia and intermittent hand numbness which has now become constant after the fall. I have contacted neurosurgeon, Dr. Barrientos, who will be seeing her in consultation. Until that visit, I have asked that she be on bed rest. Education was provided to the patient. He will be further directing brace for the neck, activity, as well as intervention with surgery. 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 She has been started on doxycycline for the potential of Lyme disease given headache and fever. Hospitalists are attending to her history of trauma. She has significant difficulty with right knee pain. Her urine does show some changes and culture is pending. TIME SPENT: Over an hour was spent in patient care including phone calls to Neurosurgery and hospitalist team to coordinate care. All questions were answered. Education was given to the patient regarding each of these issues. [id number]/[facility] #: [id number] [place]
[2016-11-07] MEDS ORDERED: amLODIPine TAB* 5 MG PO ONE (15:27)
--- NOTE | 2016-11-07 16:30 | PN ---
Subjective Date of Service: 11/07/16 Interval History: Has no new complaints b/l hand numbness without weakness persists Objective Active Medications: Acetaminophen (Tylenol Tab*) 650 mg PO Q4H PRN PRN Reason: FEVER/PAIN Albuterol (Ventolin Hfa Inhaler*) 2 puff INH Q6H PRN PRN Reason: SOB/WHEEZING Amlodipine Besylate (Norvasc Tab*) 2.5 mg PO DAILY [facility] Last Admin: 11/07/16 07:39 Dose: 2.5 mg Artificial Tears (Lacrilube Oint*) 1 applic RIGHT EYE BEDTIME [facility] Last Admin: 11/06/16 21:40 Dose: 1 applic Aspirin (Aspirin Low Dose Tab*) 81 mg PO DAILY [facility] Last Admin: 11/07/16 07:40 Dose: 81 mg Atorvastatin Calcium (Lipitor*) 40 mg PO DAILY [facility] Last Admin: 11/07/16 07:40 Dose: 40 mg Buspirone HCl (Buspar Tab *) 7.5 mg PO BID [facility] Last Admin: 11/07/16 07:41 Dose: 7.5 mg Citalopram Hydrobromide (Celexa Tab*) 20 mg PO DAILY [facility] Last Admin: 11/07/16 07:42 Dose: 20 mg Device (Nicotine Mouth Piece*) 1 each INH .[place]GE [facility] Dextrose (D50w Syringe 50 Ml*) 12.5 gm IV PUSH .FOR FS < 60 - SS PRN PRN Reason: FS < 60 Heparin Sodium (Porcine) (Heparin Vial(*)) 5,000 units SUBCUT Q8HR [facility] Last Admin: 11/07/16 13:31 Dose: 5,000 units Insulin Human Lispro (Humalog*) 0 units SUBCUT AC [facility] PRN Reason: Protocol Last Admin: 11/07/16 16:22 Dose: Not Given Mometasone Furoate/Formoterol Fumar (Dulera 200/5 Mdi*) 2 puff INH BID [facility] Last Admin: 11/07/16 09:45 Dose: 2 puff Nicotine (Nicotine Inhaler*) 10 mg INH Q2H PRN PRN Reason: CRAVING Nicotine (Nicotine Patch 14 Mg/24 Hr*) 1 patch TRANSDERM DAILY [facility] Last Admin: 11/07/16 07:44 Dose: 1 patch Ondansetron HCl (Zofran Inj*) 4 mg IV Q6H PRN PRN Reason: NAUSEA/VOMITING Pharmacy Profile Note (Nicotine Patch Removal Note*) 1 note PATCH OFF 2100 [facility] Last Admin: 11/06/16 21:49 Dose: 1 note Polyvinyl Alcohol (Polyvinyl Alcohol 1.4% Opth*) 1 drop RIGHT EYE Q2H [facility] Last Admin: 11/07/16 15:38 Dose: 1 drop Tiotropium [place] (Spiriva Cap.Inh*) 1 cap INH DAILY [facility] Last Admin: 11/07/16 07:46 Dose: 1 cap Valsartan (Diovan Tab*) 320 mg PO DAILY [facility] Last Admin: 11/07/16 07:43 Dose: 320 mg Vital Signs 11/07/16 11/07/16 11:26 15:05 Temperature 97.3 F 97.4 F Pulse Rate 75 78 Respiratory 20 16 Rate Blood Pressure 157/64 189/64 (mmHg) O2 Sat by Pulse 94 95 Oximetry Oxygen Devices in Use Now: None - 93% on RA Appearance: older than stated age, NAD Eyes: No Scleral Icterus, PERRLA Ears/Nose/Mouth/Throat: Clear Oropharnyx, - - poor dentition Neck: NL Appearance and Movements; NL JVP, Trachea Midline Respiratory: Symmetrical Chest Expansion and Respiratory Effort, - - decreased BS throughout Cardiovascular: RRR Abdominal: NL Sounds; No Tenderness; No Distention, No Hepatosplenomegaly Lymphatic: No Cervical Adenopathy Extremities: No Edema Neurological: Alert and Oriented x 3, - - right 7th palsy Result Diagrams: 11/07/16 04:38 11/07/16 04:38 Assess/Plan/Problems-Billing Assessment: 71 yo F h/o HTN, HLD, tobacco abuse p/w after fall found with right 7th nerve palsy and C3-4 myelopathy - Patient Problems (1) Myelopathy Comment: Plan for ACDF next week TTE given uknown cardiac history, poor mets, and uncontrolled HTN DM2 well controlled no kidney dysfunction pending TTE and BP control will be optiimzed for surgery (2) Hypertension Comment: valsartan 320 norvasc 2.5 Additional 5 mg norvasc 11/07 and adjust tomorrow as necessary (3) Hyperlipidemia Comment: c/w atorvastatin should be uptitrated if pt agrees (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
[2016-11-07] MEDS: Artificial Tear OPHTH.OINT* 3.5 GM RIGHT EYE SCH (21:02)
[2016-11-07] MEDS: Nicotine Patch Removal NOTE PATCH OFF SCH (21:06)
[2016-11-08] MEDS: Artificial Tears* 15 ML BTL RIGHT EYE SCH ×12 (01:06→23:00)
[2016-11-08 05:49] LABS: BUN/Creatinine Ratio 25.5 (8-20); EGFR Non-African American 130.6 (>60); Potassium 3.5 mmol/L (3.5-5.0)
[2016-11-08] MEDS: Heparin VIAL(*) 5000 UNITS/ML VIAL (FIVE THOUSAND) SUBCUT SCH ×3 (06:04→20:49)
[2016-11-08] MEDS: Mometasone/Formoter 200/5 MDI INH SCH ×2 (07:44→20:20)
[2016-11-08] MEDS: Tiotropium CAP.INH* CAP.INH/18 MCG INH SCH ×2 (07:47→08:03)
[2016-11-08] MEDS: Valsartan TAB* 160 MG PO SCH (08:01)
[2016-11-08] MEDS: Atorvastatin* 40 MG TAB PO SCH (08:01)
[2016-11-08] MEDS: Aspirin Low Dose CHEW TAB* 81 MG PO SCH (08:02)
[2016-11-08] MEDS: Citalopram TAB* 20 MG PO SCH (08:03)
[2016-11-08] MEDS: amLODIPine TAB* 5 MG PO SCH (08:04)
[2016-11-08] MEDS: busPIRone TAB* 15 MG PO SCH ×2 (08:05→20:48)
[2016-11-08] MEDS: Nicotine PATCH 14 MG/24 HR* PATCH TRANSDERM SCH (08:09)
--- NOTE | 2016-11-08 09:31 | PN ---
Progress Note - Progress Note Date of Service: 11/08/16 SOAP: Subjective: [slurred speech, right-sided facial droop, bilateral hand numbness and weakness , distal worsen than proximal ] Objective: [AAOx3 slurred speech, PERRLA EOMI right-sided facial droop, billateral UE, proximal 5-/5, distal 4/5 trace faria BLE 5-to 5/5] right knee pain to touch Assessment: [A/P: 71 y/o F presents s/p dizziness and fall about 3 days ago. She reports slurred speech, right-sided weakness, right-sided facial droop, and problems swallowing since. She also reports a headache and trouble walking. Pt received ASA in ED course. right knee injury MRI showed Severe Cervical stenosis at C3/4 with myelopathy, consiting with some of her central cord syndrome Plan: [ Neurology workup and management for slurred speech and right peripheral facial palsy Stop smoking Medical clearance Tentatively surgical plan for possible ACDF C3/4 with close neuromonitering and blood pressure support due to severe vascular risks for worsening spinal cord injury. will discuss with Dr. Be Discussed with patient and primary team. ]
--- NOTE | 2016-11-08 14:44 | PN ---
Subjective Date of Service: 11/08/16 Interval History: Numbness persists in b/l hands. No weakness Objective Active Medications: Acetaminophen (Tylenol Tab*) 650 mg PO Q4H PRN PRN Reason: FEVER/PAIN Albuterol (Ventolin Hfa Inhaler*) 2 puff INH Q6H PRN PRN Reason: SOB/WHEEZING Amlodipine Besylate (Norvasc Tab*) 2.5 mg PO DAILY [facility] Last Admin: 11/08/16 08:04 Dose: 2.5 mg Artificial Tears (Lacrilube Oint*) 1 applic RIGHT EYE BEDTIME [facility] Last Admin: 11/07/16 21:02 Dose: 1 applic Aspirin (Aspirin Low Dose Tab*) 81 mg PO DAILY [facility] Last Admin: 11/08/16 08:02 Dose: 81 mg Atorvastatin Calcium (Lipitor*) 40 mg PO DAILY [facility] Last Admin: 11/08/16 08:01 Dose: 40 mg Buspirone HCl (Buspar Tab *) 7.5 mg PO BID [facility] Last Admin: 11/08/16 08:05 Dose: 7.5 mg Citalopram Hydrobromide (Celexa Tab*) 20 mg PO DAILY [facility] Last Admin: 11/08/16 08:03 Dose: 20 mg Device (Nicotine Mouth Piece*) 1 each INH .[place]TRIDGE [facility] Dextrose (D50w Syringe 50 Ml*) 12.5 gm IV PUSH .FOR FS < 60 - SS PRN PRN Reason: FS < 60 Heparin Sodium (Porcine) (Heparin Vial(*)) 5,000 units SUBCUT Q8HR [facility] Last Admin: 11/08/16 06:04 Dose: 5,000 units Mometasone Furoate/Formoterol Fumar (Dulera 200/5 Mdi*) 2 puff INH BID [facility] Last Admin: 11/08/16 07:44 Dose: 2 puff Nicotine (Nicotine Inhaler*) 10 mg INH Q2H PRN PRN Reason: CRAVING Nicotine (Nicotine Patch 14 Mg/24 Hr*) 1 patch TRANSDERM DAILY [facility] Last Admin: 11/08/16 08:09 Dose: 1 patch Ondansetron HCl (Zofran Inj*) 4 mg IV Q6H PRN PRN Reason: NAUSEA/VOMITING Pharmacy Profile Note (Nicotine Patch Removal Note*) 1 note PATCH OFF 2100 [facility] Last Admin: 11/07/16 21:06 Dose: 1 note Polyvinyl Alcohol (Polyvinyl Alcohol 1.4% Opth*) 1 drop RIGHT EYE Q2H [facility] Last Admin: 11/08/16 11:03 Dose: Not Given Tiotropium [place] (Spiriva Cap.Inh*) 1 cap INH DAILY [facility] Last Admin: 11/08/16 08:03 Dose: 1 cap Valsartan (Diovan Tab*) 320 mg PO DAILY [facility] Last Admin: 11/08/16 08:01 Dose: 320 mg Vital Signs 11/07/16 11/07/16 11/07/16 15:05 19:14 19:39 Temperature 97.4 F 97.5 F Pulse Rate 78 94 86 Respiratory 16 16 18 Rate Blood Pressure 189/64 185/83 (mmHg) O2 Sat by Pulse 95 94 94 Oximetry 11/07/16 11/07/16 11/08/16 19:54 23:00 07:09 Temperature 97.9 F 97.9 F Pulse Rate 86 76 Respiratory 18 16 18 Rate Blood Pressure 143/79 174/68 (mmHg) O2 Sat by Pulse 94 96 94 Oximetry 11/08/16 11/08/16 07:47 08:00 Temperature Pulse Rate Respiratory 16 Rate Blood Pressure (mmHg) O2 Sat by Pulse 95 94 Oximetry Oxygen Devices in Use Now: None - 93% on RA Appearance: NAD Eyes: No Scleral Icterus Ears/Nose/Mouth/Throat: Mucous Membranes Moist, - - poor dentition Neck: NL Appearance and Movements; NL JVP, Trachea Midline Respiratory: Symmetrical Chest Expansion and Respiratory Effort, Clear to Auscultation Cardiovascular: RRR Abdominal: NL Sounds; No Tenderness; No Distention, No Hepatosplenomegaly Lymphatic: No Cervical Adenopathy Neurological: Alert and Oriented x 3, - - unable to close right eye or wrinkle forehead on right, numbness b/l hands to wrists Result Diagrams: 11/07/16 04:38 11/08/16 05:13 Assess/Plan/Problems-Billing Assessment: 71 yo F h/o HTN, HLD, tobacco abuse p/w after fall found with right 7th nerve palsy and C3-4 myelopathy - Patient Problems (1) Myelopathy Comment: Plan for ACDF next week TTE given uknown cardiac history, poor met equivalents, and uncontrolled HTN DM2 well controlled no kidney dysfunction pending TTE and BP control will be optimzed for surgery (2) Hypertension Comment: valsartan 320 norvasc 10 starting 11/09 (3) Hyperlipidemia Comment: c/w atorvastatin should be uptitrated if pt agrees (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
[2016-11-08] MEDS ORDERED: amLODIPine TAB* 5 MG PO ONE (14:48)
[2016-11-08] MEDS: Artificial Tear OPHTH.OINT* 3.5 GM RIGHT EYE SCH (20:48)
[2016-11-08] MEDS: Nicotine Patch Removal NOTE PATCH OFF SCH (20:51)
[2016-11-09] MEDS: Artificial Tears* 15 ML BTL RIGHT EYE SCH ×12 (01:23→23:16)
--- NOTE | 2016-11-09 04:03 | PN ---
PROGRESS NOTE: DATE OF SERVICE: 11/08/16 PATIENT OF: Dr. Ricardo and Dr. Muro. HISTORY: The patient continues to have leg weakness and I discussed this with her. This has been going on for a while. She is not specific about it, but is unclear whether it has been worse after the fall. It may be, but her history was some-what vague. She continues with a right facial droop and some hand weakness as well. MEDICATIONS: Unchanged, included: 1. Ventolin 2 puffs q.6 hours p.r.n. 2. Norvasc 2.5 daily. 3. Artificial Tears. 4. Aspirin 81 mg daily. 5. Lipitor 40 mg daily. 6. BuSpar 7.5 b.i.d. 7. Celexa 20 mg daily. 8. Dulera 2 puffs b.i.d. 9. Nicotine inhaler. 10. Zofran p.r.n. vomiting. 11. Diovan 320 daily. She has only minimal eye droopiness and did not notice any change in her speech today. PHYSICAL EXAMINATION: Temperature 97.9, pulse 76, respirations 16, blood pressure 174/68. She was alert and oriented with normal speech and comprehension. Cranial nerves II through XII were abnormal for a right lower motor neuron facial weakness. She could not wrinkle her forehead well and she had significant right facial weakness with decreased blink strength. Motor exam revealed normal tone and strength in the arms, with 4+/5 hip flexion on the right with trace weakness on the right leg other than that and with 5/5 strength elsewhere. She had 3+ reflexes in her legs too and her arms. Chest clear. Cardiovascular: Regular rate and rhythm. Abdomen: Soft with positive bowel sounds. LABORATORY DATA/DIAGNOSTIC STUDIES: I reviewed her cervical spine, which did show evidence of a myelopathy at C3-4 secondary to the spinal stenosis. IMPRESSION: Lakshmi has an acute onset of Birmingham's palsy and her Lyme titer is negative. She also has a history of recent falls. There is evidence of cervical myelopathy secondary to stenosis. I defer her management of this to Dr. Muro. I discussed with Dr. Ricardo that it would be important to get cervical spine collar. I have a call on to Dr. Muro to discuss whether there would be a role for steroids while the neurosurgeon waits for optimum time to operate. [id number]/[facility] #: [id number] [facility]
[2016-11-09] MEDS: Heparin VIAL(*) 5000 UNITS/ML VIAL (FIVE THOUSAND) SUBCUT SCH ×3 (05:27→21:35)
[2016-11-09] MEDS: Mometasone/Formoter 200/5 MDI INH SCH ×2 (07:55→21:39)
[2016-11-09] MEDS: Tiotropium CAP.INH* CAP.INH/18 MCG INH SCH (07:55)
[2016-11-09] MEDS: Valsartan TAB* 160 MG PO SCH (08:00)
[2016-11-09] MEDS: amLODIPine TAB* 5 MG PO SCH (08:02)
[2016-11-09] MEDS: Nicotine PATCH 14 MG/24 HR* PATCH TRANSDERM SCH (08:03)
[2016-11-09] MEDS: Atorvastatin* 40 MG TAB PO SCH (08:03)
[2016-11-09] MEDS: Aspirin Low Dose CHEW TAB* 81 MG PO SCH (08:03)
[2016-11-09] MEDS: Citalopram TAB* 20 MG PO SCH (08:03)
[2016-11-09] MEDS: busPIRone TAB* 15 MG PO SCH ×2 (08:04→21:32)
--- NOTE | 2016-11-09 11:15 | ECHO ---
Patient: TITUS SANTA [facility] Rec#: [id number] : 1945 Date: 11/09/2016 Age: 71y Height: 160.02 cm / 63.0 in Weight: 53.98 kg / 119.0 lbs Sex: F BSA: 1.55 Room#: 431 Admit Date#: 11/07/2016 Type: Inpatient Referring: Jose Ricardo MD Reading: Cristian Abdi MD [employer] Operating Engineer: Gertrudis Barrera,LAMONTECS,RDMS CC: Yamilet Winn MD Transthoracic Echocardiogram Indication: CVA BP: 165/63 HR: 75 Rhythm: NSR with PVCs Findings History: HTN, HLD, COPD, CVA, DM, smoker. Technical Comments: The study quality is fair. Completed 0955 Left Ventricle: The left ventricular chamber size is decreased. Mild concentric left ventricular hypertrophy is observed. Global left ventricular wall motion and contractility are within normal limits. There is normal left ventricular systolic function. The estimated ejection fraction is 60-65%. There is an E to A reversal in the mitral valve flow pattern suggestive of diastolic dysfunction. Left Atrium: The left atrial chamber size is normal. Right Ventricle: The right ventricular chamber size and systolic function are within normal limits. Right Atrium: The right atrial cavity size is normal. Aortic Valve: The aortic valve is trileaflet. The aortic valve leaflets are mildly thickened. There is no evidence of aortic regurgitation. There is no evidence of aortic stenosis. Mitral Valve: Moderate mitral annular calcification present. The mitral valve leaflets are mildly thickened. There is a trace of mitral regurgitation. There is mild mitral stenosis. Tricuspid Valve: The tricuspid valve leaflets are normal. There is trace tricuspid regurgitation. Unable to estimate the right ventricular systolic pressure. Pulmonic Valve: The pulmonic valve structure is not well visualized. There is no evidence of pulmonic regurgitation. There is no pulmonic stenosis. Pericardium: There is no significant pericardial effusion. Aorta: The aortic root appears normal. There is no dilatation of the ascending aorta. Pulmonary Artery: The main pulmonary artery is not well visualized. Venous: The inferior vena cava appears normal in size. There is an approximate 50% respiratory change in the inferior vena cava dimension. Conclusions There is normal left ventricular systolic function. The estimated ejection fraction is 60-65%. Global left ventricular wall motion and contractility are within normal limits. Mild concentric left ventricular hypertrophy is observed. There is an E to A reversal in the mitral valve flow pattern suggestive of diastolic dysfunction. The left ventricular chamber size is decreased. Functionally benign heart valves. There is no prior echocardiogram available to compare with at this time. Measurements Name Value Normal Range RVIDd (AP) 2D 2.2 cm (0.9 - 2.6) RVDdMajor (2D) 2.3 cm (2.2 - 4.4) RAd ISD 4CH 4.1 cm (3.4 - 4.9) RA (A4C)W 2.6 cm (2.9 - 4.6) IVSd (2D) 1.3 cm (0.6 - 1) LVPWd (2D) 1.3 cm (0.6 - 1) LVIDd (2D) 3.5 cm (3.6 - 5.4) LVIDs (2D) 1.9 cm - LV FS (2D) 44 % (25 - 45) Aortic Annulus 2 cm (1.4 - 2.6) Ao root diameter (2D) 2.6 cm (2.1 - 3.5) Ascending Ao 2.6 cm (2.1 - 3.4) LA dimension (AP) 2D 3.9 cm (2.3 - 3.8) LAd ISD 4CH 4.4 cm (2.9 - 5.3) LA ISD 4CH W 3.9 cm (2.5 - 4.5) Name Value Normal Range LA ESV SP 4CH (A/L) 33.01 ml - LA ESV SP 2CH (A/L) 42.16 ml - LA ESV BP (A/L) 39.66 ml - LA ESV BP (A/L) index 26 ml/m2 - LA ESV SP 4CH (MOD) 31.97 ml - LA ESV SP 2CH (MOD) 39.18 ml - Name Value Normal Range MV E-wave Vmax 0.9 m/sec - MV deceleration time 245 msec - MV A-wave Vmax 1.4 m/sec - MV E:A ratio 0.6 ratio - P. vein S-wave Vmax 0.7 m/sec - P. vein D-wave Vmax 0.4 m/sec - P. vein S:D Vmax ratio 1.8 ratio - P. vein A-wave duration 66 msec - LV septal e' Vmax 0.05 m/sec - LV lateral e' Vmax 0.06 m/sec - LV E:e' septal ratio 18 ratio - LV E:e' lateral ratio 15 ratio - Name Value Normal Range AV Vmax 1.4 m/sec - AV VTI 27 cm - AV peak gradient 8 mmHg - AV mean gradient 4.6 mmHg - LVOT Vmax 1.1 m/sec - LVOT VTI 21 cm - LVOT peak gradient 5 mmHg - LVOT mean gradient 2.4 mmHg - Name Value Normal Range MV Vmax 1.4 m/sec - MV VTI 34 cm - MV peak gradient 8 mmHg - MV mean gradient 3.1 mmHg - MV PHT 70 msec - MVA (PHT) 3.1 cm2 - Name Value Normal Range RAP 8 mmHg - IVC diameter 1.3 cm - Name Value Normal Range PV Vmax 0.9 m/sec - PV peak gradient 3.2 mmHg -
--- NOTE | 2016-11-09 12:19 | PN ---
Progress Note - Progress Note Date of Service: 11/09/16 SOAP: Subjective: []Complains of persistent hand numbness Undergoing preop testing per Dr. 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 Ricardo
--- NOTE | 2016-11-09 12:30 | PN ---
Subjective Date of Service: 11/09/16 Interval History: Hands numb, no change No weakness feels like she is choking and cannot breath in c-collar Objective Active Medications: Acetaminophen (Tylenol Tab*) 650 mg PO Q4H PRN PRN Reason: FEVER/PAIN Albuterol (Ventolin Hfa Inhaler*) 2 puff INH Q6H PRN PRN Reason: SOB/WHEEZING Amlodipine Besylate (Norvasc Tab*) 10 mg PO DAILY [facility] Last Admin: 11/09/16 08:02 Dose: 10 mg Artificial Tears (Lacrilube Oint*) 1 applic RIGHT EYE BEDTIME [facility] Last Admin: 11/08/16 20:48 Dose: 1 applic Aspirin (Aspirin Low Dose Tab*) 81 mg PO DAILY [facility] Last Admin: 11/09/16 08:03 Dose: 81 mg Atorvastatin Calcium (Lipitor*) 40 mg PO DAILY [facility] Last Admin: 11/09/16 08:03 Dose: 40 mg Buspirone HCl (Buspar Tab *) 7.5 mg PO BID [facility] Last Admin: 11/09/16 08:04 Dose: 7.5 mg Citalopram Hydrobromide (Celexa Tab*) 20 mg PO DAILY [facility] Last Admin: 11/09/16 08:03 Dose: 20 mg Device (Nicotine Mouth Piece*) 1 each INH .CARTRIDGE [facility] Dextrose (D50w Syringe 50 Ml*) 12.5 gm IV PUSH .FOR FS < 60 - SS PRN PRN Reason: FS < 60 Heparin Sodium (Porcine) (Heparin Vial(*)) 5,000 units SUBCUT Q8HR [facility] Last Admin: 11/09/16 05:27 Dose: 5,000 units Mometasone Furoate/Formoterol Fumar (Dulera 200/5 Mdi*) 2 puff INH BID [facility] Last Admin: 11/09/16 07:55 Dose: 2 puff Nicotine (Nicotine Inhaler*) 10 mg INH Q2H PRN PRN Reason: CRAVING Nicotine (Nicotine Patch 14 Mg/24 Hr*) 1 patch TRANSDERM DAILY [facility] Last Admin: 11/09/16 08:03 Dose: 1 patch Ondansetron HCl (Zofran Inj*) 4 mg IV Q6H PRN PRN Reason: NAUSEA/VOMITING Pharmacy Profile Note (Nicotine Patch Removal Note*) 1 note PATCH OFF 2100 [facility] Last Admin: 11/08/16 20:51 Dose: 1 note Polyvinyl Alcohol (Polyvinyl Alcohol 1.4% Opth*) 1 drop RIGHT EYE Q2H [facility] Last Admin: 11/09/16 11:29 Dose: 1 drop Tiotropium [place] (Spiriva Cap.Inh*) 1 cap INH DAILY [facility] Last Admin: 11/09/16 07:55 Dose: 1 cap Valsartan (Diovan Tab*) 320 mg PO DAILY [facility] Last Admin: 11/09/16 08:00 Dose: 320 mg Vital Signs 11/08/16 11/08/16 11/08/16 15:13 19:23 20:23 Temperature 98.3 F Pulse Rate 81 77 Respiratory 20 20 18 Rate Blood Pressure 148/61 (mmHg) O2 Sat by Pulse 94 94 92 Oximetry 11/08/16 11/09/16 11/09/16 23:31 07:43 08:00 Temperature 97.7 F 97.7 F Pulse Rate 80 74 Respiratory 16 20 16 Rate Blood Pressure 155/67 165/63 (mmHg) O2 Sat by Pulse 93 93 Oximetry Oxygen Devices in Use Now: None - 93% on RA Appearance: NAD Eyes: No Scleral Icterus, PERRLA Ears/Nose/Mouth/Throat: Clear Oropharnyx, Mucous Membranes Moist, - - poor dentition Respiratory: Symmetrical Chest Expansion and Respiratory Effort, Clear to Auscultation Cardiovascular: RRR Abdominal: NL Sounds; No Tenderness; No Distention, No Hepatosplenomegaly Lymphatic: No Cervical Adenopathy Extremities: No Edema Skin: No Rash or Ulcers Neurological: Alert and Oriented x 3, - - b/l numbness in hands, 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
[2016-11-09] MEDS: Hydrochlorothiazide TAB* 25 MG PO SCH (13:27)
[2016-11-09] MEDS: Nicotine Patch Removal NOTE PATCH OFF SCH (21:37)
[2016-11-09] MEDS: Artificial Tear OPHTH.OINT* 3.5 GM RIGHT EYE SCH (21:39)
--- NOTE | 2016-11-09 22:57 | ED ---
Ronit Zelaya Salem, scribed for Oliverio Nam MD on 11/06/16 at 1309 . Neurological HPI - HPI Summary HPI Summary: Patient is a 71 y/o F who presents to the ED s/p dizziness and fall 2 days ago. She reports slurred speech, right-sided weakness, right-sided facial droop, and problems swallowing since. She also reports a headache and trouble walking. She states that she has been taking Ibuprofen for the headache with little alleviation. She denies taking ASA or other blood thinners, but states she is on HTN medication. PMHx of CVA years ago per to pt. - History of Current Complaint Chief Complaint: EDExtremityLower Stated Complaint: STROKE LIKE SYMPTOMS Time Seen by Provider: 11/06/16 13:01 Hx Obtained From: Patient Onset/Duration: Gradual Onset, Started days ago, Still Present Timing: Constant Onset Severity: Moderate Current Severity: Moderate Pain Intensity: 0 Pain Scale Used: 0-10 Numeric Aggravating: Nothing Alleviating: Nothing Associated Signs and Symptoms: Positive: Negative - Allergy/Home Medications Allergies/Adverse Reactions: Allergies Allergy/AdvReac Type Severity Reaction Status Date / Time Codeine Allergy Intermediate Nausea And Verified 11/06/16 12:53 Vomiting Home Medications: Home Medications Albuterol Sulfate [Proair Hfa] 2 puff INH Q6H PRN 11/06/16 [History Confirmed ] Amlodipine Besylate [Amlodipine Besylate] 2.5 mg PO DAILY 11/06/16 [History Confirmed 11/06/16] Atorvastatin* [Lipitor*] 40 mg PO DAILY 11/06/16 [History Confirmed 11/06/16] Buspirone HCl [Buspirone HCl] 7.5 mg PO BID 11/06/16 [History Confirmed 11/06/16 ] Citalopram TAB* [CeleXA TAB*] 20 mg PO DAILY 11/06/16 [History Confirmed ] Fluticasone-Salmeterol 500-50* [Advair Diskus 500-50*] 1 puff INH BID 11/06/16 [ History Confirmed 11/06/16] Glipizide [Glipizide] 10 mg PO BID 11/06/16 [History Confirmed 11/06/16] Metformin HCl [Metformin HCl] 500 mg PO AC 11/06/16 [History Confirmed 11/06/16] Tiotropium CAP.INH* [Spiriva CAP.INH*] 1 cap.inh INH DAILY 11/06/16 [History Confirmed 11/06/16] Valsartan [Valsartan] 320 mg PO DAILY 11/06/16 [History Confirmed 11/06/16] PMH/Surg Hx/FS Hx/Imm Hx Respiratory History: Reports: Hx Chronic Obstructive Pulmonary Disease (COPD) Neurological History: Reports: Hx CVA - Surgical History Surgery Procedure, Year, and Place: HYSTERECTOMY Infectious Disease History: Denies: Traveled Outside the [place] in Last 30 Days - Family History Known Family History: Positive: Cardiac Disease, Respiratory Disease, Other - CA. - Social History Alcohol Use: None Hx Tobacco Use: Yes Review of Systems Negative: Fever, Chills Negative: Erythema Negative: Sore Throat Negative: Chest Pain Negative: Shortness Of Breath, Cough Negative: Abdominal Pain, Vomiting, Nausea Negative: dysuria, hematuria Positive: Other - Trouble walking. . Negative: Myalgia, Edema Negative: Rash Neurological: Other - Dizziness. Slurred speech, right-sided weakness, right- sided facial droop, and problems swallowing. Positive: Headache All Other Systems Reviewed And Are Negative: Yes Physical Exam - Summary Physical Exam Summary: Constitutional: Well-developed, Well-nourished, Alert. (-) Distressed Skin: Warm, Dry. Upper and lower facial paralysis. HENT: Eyes: Conjunctiva normal Neck: Musculoskeletal ROM normal neck. (-) JVD, (-) Stridor, (-) Tracheal deviation Cardio: Rhythm regular, rate normal, Heart sounds normal; Intact distal pulses; The pedal pulses are 2+ and symmetric. Radial pulses are 2+ and symmetric. (-) Murmur Pulmonary/Chest wall: Effort normal. (-) Respiratory distress, (-) Wheezes, (-) Rales Abd: Soft. (-) Tenderness, (-) Distension, (-) Guarding, (-) Rebound Musculoskeletal: (-) Edema. Diminished use of extremities. Good strength. Lymph: (-) Cervical adenopathy Neuro: Alert, Oriented x3, Strength normal, Cranial nerves II-XII are grossly intact. (-) Dysmetria, (-) Nystagmus, (-) Ataxia by finger to nose testing, (-) Sensory deficit. No pronator drift. No verbal apraxia. Psych: Mood and affect Normal Triage Information Reviewed: Yes Vital Signs On Initial Exam: Initial Vitals Temp Pulse Resp BP Pulse Ox 97.4 F 89 18 178/57 96 11/06/16 12:35 11/06/16 12:35 11/06/16 12:35 11/06/16 12:35 11/06/16 12:35 Vital Signs Reviewed: Yes Diagnostics - Vital Signs Vital Signs Temp Pulse Resp BP Pulse Ox 11/06/16 12:35 97.4 F 89 18 178/57 96 - Laboratory Result Diagrams: 11/06/16 12:40 11/06/16 12:40 Lab Statement: Any lab studies that have been ordered have been reviewed, and results considered in the medical decision making process. - Radiology CXR Radiology Interpretation Completed By: Radiologist - IMPRESSION: NO ACTIVE CARDIOPULMONARY DISEASE. - CT BRAIN CT Interpretation Completed By: Radiologist - IMPRESSION: No acute intracranial findings Findings called to ED at 1236 hours - EKG 1421 EKG Interpretation: NSR @ 86 bpm. No STEMI. Course/Dx - Course Course Of Treatment: 71 y/o F presents s/p dizziness and fall 2 days ago. She reports slurred speech, right-sided weakness, right-sided facial droop, and problems swallowing since. She also reports a headache and trouble walking. Pt received ASA in ED course. EKG shows NSR @ 86 bpm. No STEMI. Brain CT shows, per radiology, IMPRESSION: No acute intracranial findings. CXR shows, per radiology, IMPRESSION: NO ACTIVE CARDIOPULMONARY DISEASE. Pt will be admitted by Dr. Simmons @ 1330. - Diagnoses Provider Diagnoses: CVA (cerebral vascular accident) - Physician Notifications Discussed Care Of Patient With: Gertrudis Miramontes Time Discussed With Above Provider: 13:23 - States that brain stem stroke still possible. [place] is aware. Instructed by Provider To: MD Will See In ED - Recommended admission. Discharge - Discharge Plan Condition: Stable Disposition: ADMITTED TO [facility] documentation as recorded by the Ronit leigh Salem accurately reflects the service I personally performed and the decisions made by , Oliverio Nam MD.
[2016-11-10] MEDS: Artificial Tears* 15 ML BTL RIGHT EYE SCH ×12 (01:05→23:00)
[2016-11-10] MEDS: Heparin VIAL(*) 5000 UNITS/ML VIAL (FIVE THOUSAND) SUBCUT SCH (05:36)
[2016-11-10] MEDS: Mometasone/Formoter 200/5 MDI INH SCH ×2 (07:34→19:39)
[2016-11-10] MEDS: Tiotropium CAP.INH* CAP.INH/18 MCG INH SCH (07:34)
[2016-11-10] MEDS: Hydrochlorothiazide TAB* 25 MG PO SCH (08:11)
[2016-11-10] MEDS: Atorvastatin* 40 MG TAB PO SCH (08:12)
[2016-11-10] MEDS: Aspirin Low Dose CHEW TAB* 81 MG PO SCH (08:12)
[2016-11-10] MEDS: Citalopram TAB* 20 MG PO SCH (08:12)
[2016-11-10] MEDS: amLODIPine TAB* 5 MG PO SCH (08:12)
[2016-11-10] MEDS: Valsartan TAB* 160 MG PO SCH (08:12)
[2016-11-10] MEDS: busPIRone TAB* 15 MG PO SCH ×2 (08:12→21:22)
[2016-11-10] MEDS: Nicotine PATCH 14 MG/24 HR* PATCH TRANSDERM SCH (08:12)
--- NOTE | 2016-11-10 11:28 | PN ---
Progress Note - Progress Note Date of Service: 11/10/16 SOAP: Subjective: []Appears stable Still complains of bilateral hand numbness Cleared medically for surgery per Dr. Ricardo Objective: [] Strength normal Raduat Arleth present Assessment: [] Central cord syndrome Plan: [] A proposed procedure of ACD F at C3-4 was explained in detail. The risks of surgery to include bleeding, infection, hoarseness,spinal cord injury, and potential for poor wound and graft healing secondary to her smoking were all discussed. Surgery is scheduled for 11/11
--- NOTE | 2016-11-10 12:00 | PN ---
Subjective Date of Service: 11/10/16 Interval History: Hand numbness continues in same distribution no weakness peripheral 7th palsy unchanged Objective Active Medications: Acetaminophen (Tylenol Tab*) 650 mg PO Q4H PRN PRN Reason: FEVER/PAIN Albuterol (Ventolin Hfa Inhaler*) 2 puff INH Q6H PRN PRN Reason: SOB/WHEEZING Amlodipine Besylate (Norvasc Tab*) 10 mg PO DAILY [facility] Last Admin: 11/10/16 08:12 Dose: 10 mg Artificial Tears (Lacrilube Oint*) 1 applic RIGHT EYE BEDTIME [facility] Last Admin: 11/09/16 21:39 Dose: 1 applic Aspirin (Aspirin Low Dose Tab*) 81 mg PO DAILY [facility] Last Admin: 11/10/16 08:12 Dose: 81 mg Atorvastatin Calcium (Lipitor*) 40 mg PO DAILY [facility] Last Admin: 11/10/16 08:12 Dose: 40 mg Buspirone HCl (Buspar Tab *) 7.5 mg PO BID [facility] Last Admin: 11/10/16 08:12 Dose: 7.5 mg Citalopram Hydrobromide (Celexa Tab*) 20 mg PO DAILY [facility] Last Admin: 11/10/16 08:12 Dose: 20 mg Device (Nicotine Mouth Piece*) 1 each INH .CARTRIDGE [facility] Dextrose (D50w Syringe 50 Ml*) 12.5 gm IV PUSH .FOR FS < 60 - SS PRN PRN Reason: FS < 60 Famotidine (Pepcid Iv*) 20 mg IV ONCE ONE Stop: 11/11/16 06:01 Heparin Sodium (Porcine) (Heparin Vial(*)) 5,000 units SUBCUT Q8HR [facility] Last Admin: 11/10/16 05:36 Dose: 5,000 units Hydrochlorothiazide (Hydrodiuril Tab*) 12.5 mg PO DAILY [facility] Last Admin: 11/10/16 08:11 Dose: 12.5 mg Mometasone Furoate/Formoterol Fumar (Dulera 200/5 Mdi*) 2 puff INH BID [facility] Last Admin: 11/10/16 07:34 Dose: 2 puff Nicotine (Nicotine Inhaler*) 10 mg INH Q2H PRN PRN Reason: CRAVING Nicotine (Nicotine Patch 14 Mg/24 Hr*) 1 patch TRANSDERM DAILY [facility] Last Admin: 11/10/16 08:12 Dose: 1 patch Ondansetron HCl (Zofran Inj*) 4 mg IV Q6H PRN PRN Reason: NAUSEA/VOMITING Pharmacy Profile Note (Nicotine Patch Removal Note*) 1 note PATCH OFF 2100 [facility] Last Admin: 11/09/16 21:37 Dose: 1 note Polyvinyl Alcohol (Polyvinyl Alcohol 1.4% Opth*) 1 drop RIGHT EYE Q2H [facility] Last Admin: 11/10/16 11:29 Dose: 1 drop Tiotropium [place] (Spiriva Cap.Inh*) 1 cap INH DAILY [facility] Last Admin: 11/10/16 07:34 Dose: 1 cap Valsartan (Diovan Tab*) 320 mg PO DAILY [facility] Last Admin: 11/10/16 08:12 Dose: 320 mg Vital Signs 11/09/16 11/09/16 11/09/16 15:06 19:19 19:49 Temperature 98.2 F 98.0 F Pulse Rate 80 77 Respiratory 19 16 16 Rate Blood Pressure 128/59 136/59 (mmHg) O2 Sat by Pulse 93 93 Oximetry 11/09/16 11/09/16 11/09/16 20:00 20:05 23:10 Temperature 97.7 F Pulse Rate 81 Respiratory 16 Rate Blood Pressure (mmHg) O2 Sat by Pulse 93 91 93 Oximetry 11/09/16 11/10/16 11/10/16 23:13 07:20 07:38 Temperature 97.6 F Pulse Rate 78 74 80 Respiratory 18 Rate Blood Pressure 137/63 178/82 (mmHg) O2 Sat by Pulse 94 Oximetry Oxygen Devices in Use Now: None - 93% on RA Appearance: NAD Eyes: No Scleral Icterus, PERRLA Ears/Nose/Mouth/Throat: Mucous Membranes Moist, - - poor dentition Neck: NL Appearance and Movements; NL JVP, Trachea Midline Respiratory: Symmetrical Chest Expansion and Respiratory Effort, Clear to Auscultation Cardiovascular: RRR Abdominal: NL Sounds; No Tenderness; No Distention, No Hepatosplenomegaly Lymphatic: No Cervical Adenopathy Extremities: No Edema Skin: No Rash or Ulcers Neurological: Alert and Oriented x 3, - - right peripheral 7th nerve palsy, numbness in b/l hands to wrists Result Diagrams: 11/07/16 04:38 11/08/16 05:13 Assess/Plan/Problems-Billing Assessment: 71 yo F h/o HTN, HLD, tobacco abuse p/w after fall found with 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 Suspect bells palsy lyme negative stop doxycycline lubricant for eye until able to close voluntarily (5) COPD (chronic obstructive pulmonary disease) Comment: den ramos (6) Tobacco abuse Comment: nicotine inhaler and patch (7) DVT prophylaxis Comment: HSQ
[2016-11-10] MEDS: Artificial Tear OPHTH.OINT* 3.5 GM RIGHT EYE SCH (21:22)
[2016-11-10] MEDS: Nicotine Patch Removal NOTE PATCH OFF SCH (21:36)
[2016-11-11] MEDS: Artificial Tears* 15 ML BTL RIGHT EYE SCH ×12 (02:24→23:02)
[2016-11-11] MEDS ORDERED: Famotidine IV* 10 MG/ML 2 ML (20 mg) IV ONE (06:00)
[2016-11-11] MEDS ORDERED: Atracurium* 10 MG/ML 10 ML VIAL ONE (07:15)
[2016-11-11] MEDS ORDERED: fentaNYL* 50 MCG/ML 2 ML VIAL (100 MCG VIAL) ONE (07:15)
[2016-11-11] MEDS ORDERED: Midazolam* 1 MG/ML 5 ML VIAL (5 MG) ONE (07:16)
[2016-11-11] MEDS ORDERED: KETAMINE HCL* 50 MG/ML 10 ML VIAL ONE (07:16)
[2016-11-11] MEDS ORDERED: Thrombin 5,000 UNITS* 1 APPLIC KIT - topical use - TOPICAL ONE (07:24)
[2016-11-11] MEDS ORDERED: Bacitracin IV* 50,000 UNITS INJ ONE (07:24)
[2016-11-11] MEDS ORDERED: ceFAZolin 2 GM PREMIX(*) 2 GM/50 ML BAG IVPB ONE (07:34)
[2016-11-11] MEDS ORDERED: Lidocaine 1.5% EPI 1:200,000* 30 ML SDV ONE (08:08)
[2016-11-11] MEDS ORDERED: PROCHLORPERAZINE INJ 5 MG/ML 2 ML VIAL ONE (08:09)
[2016-11-11] MEDS ORDERED: Neostigmine Methylsulfate* 2 MG/2 ML SYRINGE ONE (08:09)
[2016-11-11] MEDS ORDERED: Dexamethasone IV* 4 MG/ML 1 ML (4 MG) ONE (08:09)
[2016-11-11] MEDS ORDERED: Lidocaine 2% PF * 5 ML VIAL ONE (08:09)
[2016-11-11] MEDS ORDERED: Propofol* 10 MG/ML 20 ML BTL IV PUSH ONE (08:09)
[2016-11-11] MEDS ORDERED: Glycopyrrolate IV* 0.2 MG/ML 1 ML VIAL ONE (08:09)
[2016-11-11] MEDS ORDERED: EPHEDrine (Pressors)* 50 MG/ML VIAL ONE (08:23)
[2016-11-11] MEDS ORDERED: Phenylephrine INJ* 10 MG/ML 1 ML VIAL (10 MG) ONE (08:23)
[2016-11-11] MEDS ORDERED: Morphine INJ* 2 MG/ML 1 ML SYRINGE IV PRN (08:25)
[2016-11-11] MEDS ORDERED: fentaNYL* 50 MCG/ML 2 ML VIAL (100 MCG VIAL) IV PRN (08:25)
[2016-11-11] MEDS ORDERED: PROCHLORPERAZINE INJ 5 MG/ML 2 ML VIAL IV PRN (08:25)
[2016-11-11] MEDS: Mometasone/Formoter 200/5 MDI INH SCH ×2 (08:54→20:08)
[2016-11-11] MEDS: Tiotropium CAP.INH* CAP.INH/18 MCG INH SCH (08:55)
[2016-11-11] MEDS ORDERED: Labetalol IV* 5 MG/ML 20 ML VIAL ONE (09:29)
[2016-11-11] MEDS ORDERED: HYDROcodone/ACETAMIN 5-325 MG* 1 TAB PO PRN (09:34)
[2016-11-11] MEDS: Aspirin Low Dose CHEW TAB* 81 MG PO SCH (10:31)
[2016-11-11] MEDS: amLODIPine TAB* 5 MG PO SCH (10:31)
[2016-11-11] MEDS: Valsartan TAB* 160 MG PO SCH (10:32)
[2016-11-11] MEDS: Citalopram TAB* 20 MG PO SCH (10:32)
[2016-11-11] MEDS: Hydrochlorothiazide TAB* 25 MG PO SCH (10:32)
[2016-11-11] MEDS: busPIRone TAB* 15 MG PO SCH ×2 (10:32→22:09)
[2016-11-11] MEDS: Nicotine PATCH 14 MG/24 HR* PATCH TRANSDERM SCH (10:32)
[2016-11-11] MEDS: Atorvastatin* 40 MG TAB PO SCH (10:32)
--- NOTE | 2016-11-11 11:20 | RAD ---
HISTORY: Anterior decompression and fusion COMPARISONS: MRI dated November 06, 2016 VIEWS: 2, portable intraoperative views of the cervical spine performed at 7:37 AM, 1:32 AM FINDINGS: Limited portable views of the spine performed intraoperatively for localization during spinal surgery. The first image at 7:37 AM demonstrates a metallic probe at the C2-C3 intervertebral disc space. The second film at 8:32 AM demonstrates a fusion plate and screws at C3 and C4. IMPRESSION: LIMITED PORTABLE VIEWS OF THE CERVICAL SPINE FOR LOCALIZATION DURING SPINAL SURGERY
--- NOTE | 2016-11-11 16:48 | PN ---
Subjective Date of Service: 11/11/16 Interval History: Seen and surgery. Dw neurosurgery team, procedure went well without complications No pain, no complaints, no change in b/l hand numbness Objective Active Medications: Acetaminophen (Tylenol Tab*) 650 mg PO Q4H PRN PRN Reason: FEVER/PAIN Hydrocodone Bitart/Acetaminophen ([place] 5-325 Tab*) 1 tab PO Q4H PRN PRN Reason: PAIN Albuterol (Ventolin Hfa Inhaler*) 2 puff INH Q6H PRN PRN Reason: SOB/WHEEZING Amlodipine Besylate (Norvasc Tab*) 10 mg PO DAILY [facility] Last Admin: 11/11/16 10:31 Dose: Not Given Artificial Tears (Lacrilube Oint*) 1 applic RIGHT EYE BEDTIME [facility] Last Admin: 11/10/16 21:22 Dose: 1 applic Aspirin (Aspirin Low Dose Tab*) 81 mg PO DAILY [facility] Last Admin: 11/11/16 10:31 Dose: Not Given Atorvastatin Calcium (Lipitor*) 40 mg PO DAILY [facility] Last Admin: 11/11/16 10:32 Dose: Not Given Buspirone HCl (Buspar Tab *) 7.5 mg PO BID [facility] Last Admin: 11/11/16 10:32 Dose: Not Given Citalopram Hydrobromide (Celexa Tab*) 20 mg PO DAILY [facility] Last Admin: 11/11/16 10:32 Dose: Not Given Device (Nicotine Mouth Piece*) 1 each INH .CARTRIDGE [facility] Dextrose (D50w Syringe 50 Ml*) 12.5 gm IV PUSH .FOR FS < 60 - SS PRN PRN Reason: FS < 60 Hydrochlorothiazide (Hydrodiuril Tab*) 12.5 mg PO DAILY [facility] Last Admin: 11/11/16 10:32 Dose: Not Given Lactated Ringer's (Lactated Ringers 1000 Ml Bag*) 1,000 mls @ 75 mls/hr IV .per rate [facility] Mometasone Furoate/Formoterol Fumar (Dulera 200/5 Mdi*) 2 puff INH BID [facility] Last Admin: 11/11/16 08:54 Dose: Not Given Nicotine (Nicotine Inhaler*) 10 mg INH Q2H PRN PRN Reason: CRAVING Nicotine (Nicotine Patch 14 Mg/24 Hr*) 1 patch TRANSDERM DAILY [facility] Last Admin: 11/11/16 10:32 Dose: Not Given Ondansetron HCl (Zofran Inj*) 4 mg IV Q6H PRN PRN Reason: NAUSEA/VOMITING Pharmacy Profile Note (Nicotine Patch Removal Note*) 1 note PATCH OFF 2100 [facility] Last Admin: 11/10/16 21:36 Dose: 1 note Polyvinyl Alcohol (Polyvinyl Alcohol 1.4% Opth*) 1 drop RIGHT EYE Q2H [facility] Last Admin: 11/11/16 15:10 Dose: 1 drop Tiotropium Herscher (Spiriva Cap.Inh*) 1 cap INH DAILY [facility] Last Admin: 11/11/16 08:55 Dose: Not Given Valsartan (Diovan Tab*) 320 mg PO DAILY [facility] Last Admin: 11/11/16 10:32 Dose: Not Given Vital Signs 11/10/16 11/10/16 11/10/16 18:49 19:39 19:40 Temperature 98.4 F Pulse Rate 73 77 Respiratory 16 16 Rate Blood Pressure 124/51 (mmHg) O2 Sat by Pulse 95 95 96 Oximetry 11/10/16 11/10/16 11/11/16 20:00 23:21 03:27 Temperature 98.0 F 98.0 F Pulse Rate 80 78 Respiratory 16 16 16 Rate Blood Pressure 143/69 118/74 (mmHg) O2 Sat by Pulse 96 92 93 Oximetry 11/11/16 11/11/16 11/11/16 07:25 09:36 09:40 Temperature 98.8 F 97.9 F Pulse Rate 73 80 80 Respiratory 15 20 20 Rate Blood Pressure 151/69 113/61 102/55 (mmHg) O2 Sat by Pulse 91 98 98 Oximetry 11/11/16 11/11/16 11/11/16 09:45 10:00 10:15 Temperature 97.2 F Pulse Rate 76 74 78 Respiratory 20 16 16 Rate Blood Pressure 102/52 96/54 95/49 (mmHg) O2 Sat by Pulse 96 96 97 Oximetry 11/11/16 11/11/16 11/11/16 10:42 10:45 11:08 Temperature 97.6 F 97.6 F Pulse Rate 82 82 Respiratory 28 28 28 Rate Blood Pressure 141/51 141/51 (mmHg) O2 Sat by Pulse 98 98 Oximetry 11/11/16 11/11/16 11/11/16 11:56 12:49 14:47 Temperature 97.6 F 98.0 F 97.8 F Pulse Rate 81 84 93 Respiratory 18 16 16 Rate Blood Pressure 155/57 122/63 101/60 (mmHg) O2 Sat by Pulse 90 97 98 Oximetry 11/11/16 16:28 Temperature Pulse Rate Respiratory Rate Blood Pressure (mmHg) O2 Sat by Pulse 98 Oximetry Oxygen Devices in Use Now: None - 93% on RA Appearance: NAD Eyes: No Scleral Icterus, PERRLA Ears/Nose/Mouth/Throat: NL Teeth, Lips, Gums, Clear Oropharnyx, Mucous Membranes Moist Neck: NL Appearance and Movements; NL JVP, Trachea Midline Respiratory: Symmetrical Chest Expansion and Respiratory Effort, Clear to Auscultation Cardiovascular: RRR Abdominal: NL Sounds; No Tenderness; No Distention, No Hepatosplenomegaly Extremities: No Edema Skin: No Rash or Ulcers Neurological: Alert and Oriented x 3, - - right 7th peripheral palsy unchanged, numbness in b/l hands to wrists Result Diagrams: 11/07/16 04:38 11/08/16 05:13 Assess/Plan/Problems-Billing Assessment: 71 yo F h/o HTN, HLD, tobacco abuse p/w after fall found with right 7th nerve palsy and 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 Suspect bells palsy lyme negative stop doxycycline lubricant for eye until able to close voluntarily (5) COPD (chronic obstructive pulmonary disease) Comment: [place] (6) Tobacco abuse Comment: nicotine inhaler and patch (7) DVT prophylaxis Comment: HSQ
[2016-11-11] MEDS: Artificial Tear OPHTH.OINT* 3.5 GM RIGHT EYE SCH (22:10)
[2016-11-11] MEDS: Nicotine Patch Removal NOTE PATCH OFF SCH (22:14)
[2016-11-12] MEDS: Artificial Tears* 15 ML BTL RIGHT EYE SCH ×7 (01:06→13:49)
--- NOTE | 2016-11-12 08:20 | PN ---
Progress Note - Progress Note Date of Service: 11/12/16 SOAP: Subjective: [This is a 71 year old female s/p ACD F C3-4, POD #1. States that she is feeling well this morning and only complains of persistent numbness in the bilateral hands. Denies neck pain and pain or weakness in the upper extremities. Mild incisional pain. She has been eating without difficulty. Denies neck fullness, difficulty swallowing or breathing. Denies headache and nausea. ] Objective: [ Vital Signs: Temp Pulse Resp BP Pulse Ox 97.4 F 77 18 158/54 97 11/12/16 03:53 11/12/16 04:06 11/12/16 03:53 11/12/16 04:06 11/12/16 03:53 General: Alert and comfortably laying in bed. No distress. Neuro: Motor intact. Sensation intact although diminished in bilateral hands. Incision: Intact and without infection. ] Assessment: [Satisfactory post-op course. Pain well controlled. No new complaints.] Plan: [1. PT and OT consults 2. Patient is cleared by neurosurgery to be discharged when hospital medicine sees appropriate. ]
[2016-11-12] MEDS: Valsartan TAB* 160 MG PO SCH (09:41)
[2016-11-12] MEDS: amLODIPine TAB* 5 MG PO SCH (09:42)
[2016-11-12] MEDS: Atorvastatin* 40 MG TAB PO SCH (09:42)
[2016-11-12] MEDS: Aspirin Low Dose CHEW TAB* 81 MG PO SCH (09:42)
[2016-11-12] MEDS: Citalopram TAB* 20 MG PO SCH (09:42)
[2016-11-12] MEDS: Hydrochlorothiazide TAB* 25 MG PO SCH (09:43)
[2016-11-12] MEDS: Tiotropium CAP.INH* CAP.INH/18 MCG INH SCH (09:51)
[2016-11-12] MEDS: Mometasone/Formoter 200/5 MDI INH SCH (09:52)
[2016-11-12] MEDS: Nicotine PATCH 14 MG/24 HR* PATCH TRANSDERM SCH (10:07)
[2016-11-12] MEDS: busPIRone TAB* 15 MG PO SCH (10:09)
[2016-11-12 15:57] VITALS: BP 149/40
--- NOTE | 2016-11-13 04:09 | DS ---
CC: Dr. Winn; Dr. Be * DISCHARGE SUMMARY: DATE OF ADMISSION: 11/06/16. DATE OF DISCHARGE: 11/12/16. PRIMARY CARE PROVIDER: Dr. Winn. PRIMARY DIAGNOSIS: C3-4 myelopathy, status post ACDF with Dr. Be on . SECONDARY DIAGNOSES: Include: 1. 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 2. Type 2 diabetes. 3. Hypertension. 4. Hyperlipidemia. 5. Anxiety. 6. Depression. 7. Chronic obstructive pulmonary disease. 8. Newly diagnosed chronic compensated diastolic heart dysfunction. MEDICATIONS ON DISCHARGE: 1. Albuterol sulfate 2 puffs every 6 hours as needed for shortness of breath. 2. Valsartan 320 mg daily. 3. Tiotropium one cap inhaled daily. 4. Metformin 500 mg in the morning with meals. 5. Glipizide 10 mg twice daily. 6. Advair 500/50 one puff twice daily 7. Citalopram 20 mg daily. 8. Buspirone 7.5 mg twice daily. 9. Atorvastatin 40 mg daily. 10. Amlodipine 10 mg daily. 11. Hydrochlorothiazide 12.5 daily. 12. [place] 5/325 one tab, 6 tabs a day as needed for pain. 13. Artificial Tears ointment over right eye at bedtime. HISTORY OF PRESENT ILLNESS AND HOSPITAL COURSE: This is a 71-year-old female with a past medical history as outlined in the history of present illness on the day of admission presented to the hospital after a fall, noted increasing dizziness and difficulty speaking as well as right-sided facial droop. On evaluation in the emergency room, she was noted to have a peripheral right VII palsy; however, did indicate bilateral hand numbness that has been ongoing for some time. MRI of her C-spine did indicate C3-C4 myelopathy for which she was consulted in conjunction with Neurosurgery, who recommended anterior cervical diskectomy and fusion, which was performed by Dr. Be without complications on 11/11/16. On the day of discharge, the patient's right seventh nerve plasty was unchanged though she was unable to close her eyes and smile. She was also seen in conjunction with Neurology. She was treated briefly for presumptive Lyme disease until negative serologies returned. There were no complications during patient's hospital stay. At followup, please; 1. Please evaluate for improvement or resolution of right VII nerve palsy, right VII peripheral nerve palsy, as well as well bilateral hand numbness. 2. Please ensure the patient is receiving home PT. While it was felt that she will benefit from inpatient subacute rehab, the patient was adamant that she would not accept as she is caring for her quadriplegic at home. 3. Please evaluate for continued blood pressure control on new medications. 4. No other specific labs or vitals have been followed. Reasons to return to the hospital include, but are not limited to recurrent or worsening symptoms including worsening numbness, any new weakness, pain, worsening pain in her neck, nausea, vomiting, lightheadedness, loss of consciousness, near loss of consciousness, shortness of breath, or chest pain, fevers, chills or night sweats, inability to obtain or tolerate medications were discussed with the patient, she acknowledged understanding. TIME SPENT: Greater than 45 minutes was spent on discharge of this patient; greater than half was [id number] with the patient. [id number]/[facility] #: [id number] [place]
--- NOTE | 2016-11-17 09:35 | OP ---
OPERATIVE REPORT: DATE OF OPERATION: 11/11/16 DATE OF : 45 PRIMARY SURGEON: Ian Be MD SENIOR GRAPHIC DESIGNER: MIGUEL Funes ANESTHESIA: General. PRE-OP DIAGNOSIS: Cervical spondylosis with myelopathy. POST-OP DIAGNOSIS: Cervical spondylosis with myelopathy. OPERATIVE PROCEDURE: Anterior cervical diskectomy and fusion C3-4 with insertion of interbody biome chanical device, with anterior instrumentation. DESCRIPTION OF PROCEDURE: After satisfactory general anesthesia was obtained, the patient's head wa s positioned in the horseshoe headrest with the neck slightly extended. The anterior aspect of the neck was then clipped, prepped, and draped in a sterile manner for anterior cervical exposure. A sk in incision was outlined at the highest point in her neck, beginning at the midline and extending to the right side at a distance of 3 cm. This incision was infiltrated with 1% Xylocaine with epineph rine, after which it was turned in sharply to the subcutaneous tissues. A superiorly and inferiorly base subcutaneous flap was then fashioned and the platysma muscle divided along the direction of it s fibers. Utilizing a combination of sharp and blunt dissection, a dissection plane was carried joaquina n between the sternocleidomastoid and strap muscles down to the anterior aspect of the spine. An in traoperative x-ray was obtained showing that the initial exposure was at the C2-3 level. Additional inferior exposure was obtained and attachment of longus colli muscles taken down. Self-retaining r etractors were placed. The initial step in the decompression was removal of the anterior two-thirds of disk at this level, which was done with a combination of the Midas Nnamdi drill, angled curettes, a nd pituitary rongeurs. Vanlue distractor pins were then placed in the C3 and C4 vertebral bodies an d gentle disk space distraction applied. At this point of the procedure, the operating microscope w as brought into the field, and the remainder of the procedure was done under microscopic visualizati on. Projecting back posteriorly was a significant spur disk complex, primarily coming off the super ior aspect of the C4 vertebral body. Utilizing the Midas Nnamdi drill and Kerrison rongeurs, this was decompressed back until normal dura was encountered. At the conclusion of the decompression, a PEEK cage was selected to span the defect and was filled with bony matrix and slightly countersunk. A M edtronic ZEVO plate was then secured to the C3-4 level with 13-mm self-drilling screws. A post-cons truct x- ray was taken showing good placement of these screws and graft. The wound was then thoroug hly irrigated, after which a drain was placed in the prevertebral space and tunneled out toward the right side. The subcutaneous tissues were then reapproximated with 3-0 Vicryl and the skin closed w ith Steri-Strips. The estimated blood loss was less than 50 cc and the final sponge, padding, and n eedle counts were correct. The patient was taken to the recovery room, extubated, and in stable con dition. [id number]/[facility] #: [id number]
== END 2016-11-12 16:35 | disposition home health service (06) | DRG 471 ==
LOC: ED 12:14 → MEDTELE 13:32 → OBSVTOIN 11-07 10:17 → SSU 11-11 10:38
PROVIDERS: ADMIT Internal Medicine; ATTEND Internal Medicine
PROC: 0RG10A0 Fusion of Cervical Vertebral Joint with Interbody Fusion Device, Anterior Approach, Anterior Column, Open Approach (ICD-10-PCS; 2016-11-11)
PROC: 0RB30ZZ Excision of Cervical Vertebral Disc, Open Approach (ICD-10-PCS; principal; 2016-11-11 07:45)
DX: M47.12 Other spondylosis with myelopathy, cervical region (principal); S14.123A Central cord syndrome at C3 level of cervical spinal cord, initial encounter; J44.9 Chronic obstructive pulmonary disease, unspecified; I50.32 Chronic diastolic (congestive) heart failure; I11.0 Hypertensive heart disease with heart failure; G95.9 Disease of spinal cord, unspecified; M48.02 Spinal stenosis, cervical region; E11.9 Type 2 diabetes mellitus without complications; R29.2 Abnormal reflex; W01.0XXA Fall on same level from slipping, tripping and stumbling without subsequent striking against object, initial encounter; E78.5 Hyperlipidemia, unspecified; F41.9 Anxiety disorder, unspecified; F32.9 Major depressive disorder, single episode, unspecified; F17.210 Nicotine dependence, cigarettes, uncomplicated; G51.0 Bell's palsy; S89.91XA Unspecified injury of right lower leg, initial encounter; S59.901A Unspecified injury of right elbow, initial encounter; R20.0 Anesthesia of skin; M50.30 Other cervical disc degeneration, unspecified cervical region; R51 Headache; E78.00 Pure hypercholesterolemia, unspecified; Y92.480 Sidewalk as the place of occurrence of the external cause; Z88.5 Allergy status to narcotic agent; Z82.49 Family history of ischemic heart disease and other diseases of the circulatory system; Z83.3 Family history of diabetes mellitus; Z86.73 Personal history of transient ischemic attack (TIA), and cerebral infarction without residual deficits; Z90.710 Acquired absence of both cervix and uterus; Z80.9 Family history of malignant neoplasm, unspecified; Z83.6 Family history of other diseases of the respiratory system; Z79.84 Long term (current) use of oral hypoglycemic drugs
CPT/HCPCS: 36415; 70450; 70551; 71010; 72020; 72125; 72141; 80048; 80053; 80061; 81003; 81015; 83036; 83605; 84484; 85025; 85610; 85730; 86140; 86618; 86850; 86900; 86901; 87086; 93005; 93306; 94640; 94760; 94762; A9270-GY; C1713; C1776; G0378; G8978-GP-CJ; G8979-GP-CI; G8987-GO-CL; G8988-GO-CI; J0690; J0780; J1100; J1644; J2250; J2704; J3010

== ENCOUNTER 2016-12-30 11:20 | Observation (INO) | payer MEDICARE, BC ==
[2016-12-30] MEDS ORDERED: NS 0.9% 1000 ML* 1,000 ML IV ONE (11:42)
[2016-12-30] MEDS ORDERED: Iodixanol* (CONTRAST) 320 MG/ML 100 ML SDV IV ONE (11:52)
[2016-12-30 12:07] LABS: Hematocrit 40 % (35-47); Hemoglobin 13.4 g/dl (12.0-16.0); Mean Corpuscular HGB Conc 33 g/dl (31-36); Mean Corpuscular Hemoglobin 28 pg (27-31); Mean Corpuscular Volume 83 fL (80-97); Mean Platelet Volume 9 um3 (7.4-10.4); Red Blood Count 4.83 10^6/ul (4.0-5.4); Red Cell Distribution Width 15 % (10.5-15); White Blood Count 16.1 10^3/ul (3.5-10.8)
--- NOTE | 2016-12-30 12:47 | RAD ---
HISTORY: Slurred speech, right-sided weakness COMPARISONS: Head CT dated December 30, 2016 TECHNIQUE: Multiple contiguous axial CT scans were obtained of the head and neck After the administration of nonionic intravenous contrast timed to the systemic arterial phase of contrast enhancement. Coronal and sagittal multiplanar reformations are submitted for review. Multiple 3-D maximum intensity projection reconstructions are also submitted for review. FINDINGS: CTA NECK: AORTIC ARCH: There is calcific atherosclerotic disease of the aortic arch, without ostial or proximal stenosis of the cephalic great vessels. There is a normal three-vessel branching pattern. RIGHT VERTEBRAL ARTERY: The right vertebral artery is patent along its course, without stenosis. LEFT VERTEBRAL ARTERY: The left vertebral artery is patent along its course, without stenosis. DOMINANCE: The vertebral arteries are codominant. RIGHT COMMON CAROTID ARTERY: The right common carotid artery is patent. The right carotid bifurcation occurs at C4-C5 RIGHT INTERNAL CAROTID ARTERY: There is atheromatous disease of the right carotid bifurcation, without right internal carotid artery stenosis by NASCET criteria. RIGHT EXTERNAL CAROTID ARTERY: The right external carotid artery is unremarkable. LEFT COMMON CAROTID ARTERY: The left common carotid artery is patent. The left carotid bifurcation occurs at C4-C5 LEFT INTERNAL CAROTID ARTERY: Evaluation limited by streak artifact from spinal fusion hardware. There is no appreciable left internal carotid artery stenosis by NASCET criteria. LEFT EXTERNAL CAROTID ARTERY: The left external carotid artery is unremarkable. VENOUS CIRCULATION: The venous system is unremarkable. SALIVARY GLANDS: The parotid glands, submandibular glands, sublingual glands are normal. NASAL CAVITY/NASOPHARYNX: The nasal cavity and nasopharynx are normal. ORAL CAVITY/OROPHARYNX: The oral cavity and oropharynx are unremarkable. LARYNGEAL APPARATUS/HYPOPHARYNX: The laryngeal apparatus and hypopharynx are normal. UPPER AIRWAY/UPPER ESOPHAGUS: The visualized upper airway and esophagus are normal. LUNG APICES: The lung apices are clear. THYROID GLAND: The thyroid gland is normal. LYMPH NODES: There is no lymphadenopathy by size criteria. BONES AND SOFT TISSUES: The patient is status post anterior cervical fusion. CTA HEAD: INTRACRANIAL CIRCULATION: There is no aneurysm, vascular malformation, occlusion, or stenosis of the visualized intracranial circulation. The anterior communicating artery complex is clear. Bilateral posterior communicating arteries are identified. VENOUS CIRCULATION: The venous system is unremarkable. PERFUSION: There is no obvious parenchymal perfusion deficit. HEMORRHAGE/INFARCT: There is no hemorrhage or acute infarct. MASSES/SHIFT: There is no mass or shift. EXTRA-AXIAL SPACES: There are no extra-axial fluid collections. SULCI AND VENTRICLES: The sulci and ventricles are normal in size and position for the patient's stated age. CEREBRUM: There are no focal parenchymal abnormalities. BRAINSTEM: There are no focal parenchymal abnormalities. CEREBELLUM: There are no focal parenchymal abnormalities. PARANASAL SINUSES: The paranasal sinuses are clear. ORBITS: The orbits are unremarkable. BONES AND SOFT TISSUE: No bone or soft tissue abnormalities are noted. OTHER: There is no abnormal enhancement. IMPRESSION: 1. ATHEROMATOUS DISEASE. 2. NO INTERNAL CAROTID ARTERY STENOSIS BY NASCET CRITERIA. 3. NO ANEURYSM, VASCULAR MALFORMATION, OCCLUSION, OR STENOSIS OF THE VISUALIZED INTRACRANIAL CIRCULATION. CPT II Codes: 3100F
--- NOTE | 2016-12-30 12:48 | RAD ---
INDICATION: Right-sided weakness and slurred speech COMPARISON: CT of the brain dated November 06, 2016 TECHNIQUE: Contiguous axial sections of the brain were obtained from the skull base to the vertex without contrast. FINDINGS: The ventricles, cisterns and sulci are within normal limits. The souza-white matter differentiation is adequately maintained and there is no sulcal effacement. No significant focal abnormality or mass effect is present. There is no evidence for intracranial hemorrhage. There is calcified atherosclerosis noted the bilateral petrous carotid arteries in the left greater than right vertebral arteries. No significant focal osseous abnormality is present. The visualized portion of the paranasal sinuses and mastoid air cells appear clear. IMPRESSION: Mild degenerative changes without acute intracranial abnormality. Findings were reported to Dr. Stratton over the telephone at 1243 hours on December 30, 2016.
[2016-12-30 13:12] LABS: Urine Bacteria Absent (Absent); Urine Bilirubin Negative (Negative); Urine Glucose Negative (Negative); Urine Nitrite Negative (Negative)
[2016-12-30 13:13] LABS: Potassium 3.4 mmol/L (3.5-5.0)
[2016-12-30 13:14] LABS: Albumin 4.1 g/dL (3.2-5.2); BUN/Creatinine Ratio 36.2 (8-20); Calcium 9.8 mg/dL (8.6-10.3); EGFR Non-African American 130.6 (>60); Total Bilirubin 0.3 mg/dL (0.2-1.0); Total Protein 7.1 g/dL (6.4-8.9)
[2016-12-30 13:15] LABS: HDL Cholesterol 55.1 mg/dL
--- NOTE | 2016-12-30 14:48 | ED ---
Lesvia Zelaya Alfonso, scribed for Robert Stratton MD on 12/30/16 at 1142 . Neurological HPI - HPI Summary HPI Summary: This patient is a 71 year old female BIBA to [facility] for possible focal neurological deficits noted this morning. The patient is a poor historian. She states my whole body felt numb today. The patient rates the pain 0/10 in severity. Symptoms aggravated by nothing. Symptoms alleviated by nothing. EMS reports right-sided facial droop (possibly increased from baseline). 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 Tobacco abuse disorder. PMHx includes DM, HTN, COPD, and CVA. - History of Current Complaint Stated Complaint: WEAKNESS, Time Seen by Provider: 12/30/16 11:27 Hx Obtained From: Patient, EMS Onset/Duration: Sudden Onset, Started hours ago, Still Present Timing: Constant Onset Severity: Moderate Current Severity: Moderate Pain Intensity: 0 Pain Scale Used: 0-10 Numeric Character: Other: - EMS reports right-sided facial droop (possibly increased from baseline). Patient reports fall (in bathroom approximately two hours RADIO PROGRAM DIRECTOR and found by physical therapist), weakness (all morning), numbness in bilateral UE (90 minutes ago), slurred speech (possibly increased from baseline), slight headache, vision loss, CP, SOB, and cough. Aggravating: Nothing Alleviating: Nothing Similar Episode/Dx as: CVA - Additional Pertinent History Primary Care Physician: ERNA - Allergy/Home Medications Allergies/Adverse Reactions: Allergies Allergy/AdvReac Type Severity Reaction Status Date / Time Codeine Allergy Intermediate Nausea And Verified 11/06/16 12:53 Vomiting Home Medications: Home Medications ALPRAZolam TAB* [Xanax TAB*] 0.25 mg PO TID PRN 12/30/16 [History Confirmed ] Alendronate (NF) [Fosamax (NF)] 70 mg PO WEEKLY 12/30/16 [History Confirmed ] Aspirin EC Low Dose* [Ecotrin EC Low Dose 81 MG*] 81 mg PO DAILY 12/30/16 [ History Confirmed 12/30/16] Fluticasone NASAL SPRAY 50MCG* [Flonase NASAL SPRAY 50MCG*] 2 spray BOTH NARES DAILY 12/30/16 [History Confirmed 12/30/16] Mometasone NASAL (NF) [Nasonex (NF)] 1 spray BOTH NARES DAILY 12/30/16 [History Confirmed 12/30/16] Valsartan TAB* [Diovan TAB*] 320 mg PO DAILY 12/30/16 [History Confirmed ] busPIRone TAB* [Buspar TAB *] 7.5 mg PO BID 12/30/16 [History Confirmed 12/30/16 ] glipiZIDE TAB* [Glucotrol TAB*] 10 mg PO BID 12/30/16 [History Confirmed ] metFORMIN* [Glucophage 1000 MG TAB *] 1,000 mg PO QPM 12/30/16 [History Confirmed 12/30/16] metFORMIN* [Glucophage 500 MG TAB *] 500 mg PO QAM 12/30/16 [History Confirmed 12/30/16] PMH/Surg Hx/FS Hx/Imm Hx Endocrine/Hematology History: Reports: Hx Diabetes - type 2 Cardiovascular History: Reports: Hx Hypertension Denies: Hx Pacemaker/ICD Respiratory History: Reports: Hx Chronic Obstructive Pulmonary Disease (COPD) GI History: Reports: Hx Gastroesophageal Reflux Disease Musculoskeletal History: Reports: Hx Arthritis Sensory History: Reports: Hx Contacts or Glasses Denies: Hx Hearing Aid Opthamlomology History: Reports: Hx Contacts or Glasses Neurological History: Reports: Hx CVA, 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 - Social History Alcohol Use: None Substance Use Type: Reports: None Hx Tobacco Use: Yes Smoking Status (MU): Heavy Every Day Tobacco Smoker Review of Systems Positive: Chest Pain Positive: Shortness Of Breath, Cough Positive: Other - fall (in bathroom approximately two hours RADIO PROGRAM DIRECTOR and found by physical therapist) Neurological: Other - Possible FND, right-sided facial droop (possibly increased from baseline), slurred speech (possibly increased from baseline), weakness (all morning), numbness in bilateral UE (90 minutes ago), slight headache, vision loss, All Other Systems Reviewed And Are Negative: Yes Physical Exam - Summary Physical Exam Summary: The patient is well-nourished in no acute distress and in no acute pain. The skin is warm and dry and skin color reflects adequate perfusion. HEENT: The head is normocephalic and atraumatic. The pupils are equal and reactive. The conjunctivae are clear and without drainage. Nares are patent and without drainage. Mouth reveals moist mucous membranes and the throat is without erythema and exudate. The external ears are intact. The ear canals are patent and without drainage. The tympanic membranes are intact. Ptosis of the left eyelid. Visual filed defect at right inferior lateral field. Right corner of her mouth droops. Neck is supple with full range of motion and non-tender. There are no carotid bruits. There is no neck vein distension. Respiratory: Chest is non-tender. Lungs are clear to auscultation and breath sounds are symmetrical and equal. Cardiovascular: Heart is regular rate and rhythm. There is no murmur or rub auscultated. Pulses are symmetrical and equal. Abdomen: The abdomen is soft and non-tender. There are normal bowel sounds heard in all four quadrants and there is no organomegaly palpated. Musculoskeletal: There is no back pain noted. Extremities are non-tender with full range of motion. There is good capillary refill. There is no peripheral edema or calf tenderness elicited. RLE with slight drift but did not touch the bed. Finger to nose drift on RUE compared to left. Neurological: Patient is alert and oriented to person, place and time. Negative Babinskis. No sensory deficits. Cranial nerves are grossly intact. Deep tendon reflexes are symmetrical and equal in all four extremities. Psychiatric: The patient has an appropriate affect and does not exhibit any anxiety or depression. She is a poor historian. Triage Information Reviewed: Yes Vital Signs On Initial Exam: Initial Vitals Temp Pulse Resp BP Pulse Ox 97.5 F 94 20 166/118 96 12/30/16 11:29 12/30/16 11:29 12/30/16 11:29 12/30/16 11:29 12/30/16 11:29 Vital Signs Reviewed: Yes - [place] Coma Scale Best Eye Response: 4 - Spontaneous Best Motor Response: 6 - Obeys Commands Best Verbal Response: 5 - Oriented [place] Coma Scale Comments: Diagnostics - Vital Signs Vital Signs Temp Pulse Resp BP Pulse Ox 12/30/16 12:02 97.5 F 94 20 166/118 96 12/30/16 11:29 97.5 F 94 20 166/118 96 - Laboratory Lab Results: Lab Results 12/30/16 12/30/16 12/30/16 Range/Units 12:00 12:00 12:00 WBC 16.1 H (3.5-10.8) 10^3/ul RBC 4.83 (4.0-5.4) 10^6/ul Hgb 13.4 (12.0-16.0) g/dl Hct 40 (35-47) % MCV 83 (80-97) fL MCH 28 (27-31) pg MCHC 33 (31-36) g/dl RDW 15 (10.5-15) % Plt Count 326 (150-450) 10^3/ul MPV 9 (7.4-10.4) um3 Neut % (Auto) 84.7 H (38-83) % Lymph % (Auto) 12.2 L (25-47) % Barnes % (Auto) 2.7 (1-9) % Eos % (Auto) 0.2 (0-6) % Baso % (Auto) 0.2 (0-2) % Absolute Neuts (auto) 13.6 H (1.5-7.7) 10^3/ul Absolute Lymphs (auto) 2.0 (1.0-4.8) 10^3/ul Absolute Monos (auto) 0.4 (0-0.8) 10^3/ul Absolute Eos (auto) 0 (0-0.6) 10^3/ul Absolute Basos (auto) 0 (0-0.2) 10^3/ul Absolute Nucleated RBC 0 10^3/ul Nucleated RBC % 0 INR (Anticoag Therapy) 0.94 (0.89-1.11) APTT 35.8 (26.0-36.3) seconds Sodium 136 (133-145) mmol/L Potassium 3.4 L (3.5-5.0) mmol/L Chloride 105 (101-111) mmol/L Carbon Dioxide 20 L (22-32) mmol/L Anion Gap 11 (2-11) mmol/L BUN 17 (6-24) mg/dL Creatinine 0.47 L (0.51-0.95) mg/dL Est GFR ( Amer) 168.0 (>60) Est GFR (Non-Af Amer) 130.6 (>60) BUN/Creatinine Ratio 36.2 H (8-20) Glucose 41 L (70-100) mg/dL Lactic Acid (0.5-2.0) mmol/L Calcium 9.8 (8.6-10.3) mg/dL Total Bilirubin 0.30 (0.2-1.0) mg/dL AST 16 (13-39) U/L ALT 17 (7-52) U/L Alkaline Phosphatase 83 (34-104) U/L Troponin I 0.00 (<0.04) ng/mL Total Protein 7.1 (6.4-8.9) g/dL Albumin 4.1 (3.2-5.2) g/dL Globulin 3.0 (2-4) g/dL Albumin/Globulin Ratio 1.4 (1-3) Triglycerides 119 mg/dL Cholesterol 148 mg/dL LDL Cholesterol 69 mg/dL HDL Cholesterol 55.1 mg/dL Urine Color Urine Appearance Urine pH (5-9) Ur Specific [place] (1.010-1.030) Urine Protein (Negative) Urine Ketones (Negative) Urine Blood (Negative) Urine Nitrate (Negative) Urine Bilirubin (Negative) Urine Urobilinogen (Negative) Ur Leukocyte Esterase (Negative) Urine WBC (Auto) (Absent) Urine RBC (Auto) (Absent) Ur Squamous Epith Cells (Absent) Urine Bacteria (Absent) Urine Glucose (Negative) 12/30/16 12/30/16 Range/Units 12:00 12:45 WBC (3.5-10.8) 10^3/ul RBC (4.0-5.4) 10^6/ul Hgb (12.0-16.0) g/dl Hct (35-47) % MCV (80-97) fL MCH (27-31) pg MCHC (31-36) g/dl RDW (10.5-15) % Plt Count (150-450) 10^3/ul MPV (7.4-10.4) um3 Neut % (Auto) (38-83) % Lymph % (Auto) (25-47) % Barnes % (Auto) (1-9) % Eos % (Auto) (0-6) % Baso % (Auto) (0-2) % Absolute Neuts (auto) (1.5-7.7) 10^3/ul Absolute Lymphs (auto) (1.0-4.8) 10^3/ul Absolute Monos (auto) (0-0.8) 10^3/ul Absolute Eos (auto) (0-0.6) 10^3/ul Absolute Basos (auto) (0-0.2) 10^3/ul Absolute Nucleated RBC 10^3/ul Nucleated RBC % INR (Anticoag Therapy) (0.89-1.11) APTT (26.0-36.3) seconds Sodium (133-145) mmol/L Potassium (3.5-5.0) mmol/L Chloride (101-111) mmol/L Carbon Dioxide (22-32) mmol/L Anion Gap (2-11) mmol/L BUN (6-24) mg/dL Creatinine (0.51-0.95) mg/dL Est GFR ( Amer) (>60) Est GFR (Non-Af Amer) (>60) BUN/Creatinine Ratio (8-20) Glucose (70-100) mg/dL Lactic Acid 0.6 (0.5-2.0) mmol/L Calcium (8.6-10.3) mg/dL Total Bilirubin (0.2-1.0) mg/dL AST (13-39) U/L ALT (7-52) U/L Alkaline Phosphatase (34-104) U/L Troponin I (<0.04) ng/mL Total Protein (6.4-8.9) g/dL Albumin (3.2-5.2) g/dL Globulin (2-4) g/dL Albumin/Globulin Ratio (1-3) Triglycerides mg/dL Cholesterol mg/dL LDL Cholesterol mg/dL HDL Cholesterol mg/dL Urine Color Yellow Urine Appearance Clear Urine pH 5.0 (5-9) Ur Specific [place] 1.035 H (1.010-1.030) Urine Protein 2+(100 mg/dl) H (Negative) Urine Ketones Trace H (Negative) Urine Blood Negative (Negative) Urine Nitrate Negative (Negative) Urine Bilirubin Negative (Negative) Urine Urobilinogen Negative (Negative) Ur Leukocyte Esterase Negative (Negative) Urine WBC (Auto) Trace(0-5/hpf) (Absent) Urine RBC (Auto) Trace(0-2/hpf) (Absent) Ur Squamous Epith Cells Present H (Absent) Urine Bacteria Absent (Absent) Urine Glucose Negative (Negative) Result Diagrams: 12/30/16 12:00 12/30/16 12:00 Lab Statement: Any lab studies that have been ordered have been reviewed, and results considered in the medical decision making process. - CT CTA HEAD CT Interpretation Completed By: Radiologist - 1. ATHEROMATOUS DISEASE. 2. NO INTERNAL CAROTID ARTERY STENOSIS BY NASCET CRITERIA. 3. NO ANEURYSM, VASCULAR MALFORMATION, OCCLUSION, OR STENOSIS OF THE VISUALIZED. INTRACRANIAL CIRCULATION. ED physician has reviewed this radiology report and agrees. Brain CT Interpretation Completed By: Radiologist - Mild degenerative changes without acute intracranial abnormality. Findings were reported to Dr. Stratton over the telephone at 1243 hours on December 30, 2016. ED physician has reviewed this radiology report and agrees. - EKG 1148 Cardiac Rate: NL - BPM 92 EKG Rhythm: Sinus Rhythm ST Segment: Non-Specific - V5-V6 EKG Interpretation: Normal axis. No STEMI. NIH Scale - NIH Scale Level of Consciousness: Alert/Keenly Responsive Ask Patient the Month and His/Her Age: Both Correct Ask Pt to Open/Close Eyes and Cupola Tender/Release Non-Paretic Hand: Both Correctly Best Gaze (Only Horizontal Eye Movement): Partial Gaze Palsy Visual Field Testing: Partial Hemianopia Facial Paresis-Pt to Smile & Close Eyes or Grimace Symmetry: Minor Paralysis Motor Function - Right Arm: No Drift-Holds 10 Seconds Motor Function - Left Arm: Drifts LT 10 seconds Motor Function - Right Leg: Drifts LT 10 seconds Motor Function - Left Leg: No Drift-Holds 10 Seconds Limb Ataxia-Must be out of Proportion to Weakness Present: Present in One Limb Sensory (Use Pinprick to Test Arms/Legs/Trunk/Face): Normal Best Language (Describe Picture, Name Items): Some Loss Dysarthria (Read Several Words): Slurs Some Words Extinction and Inattention: No Abnormality Total Score: 8 Course/Dx - Course Assessment/Plan: This patient is a 71 year old female BIBA to [facility] for possible focal neurological deficits noted this morning. The patient is a poor historian. She states my whole body felt numb today. The patient rates the pain 0/10 in severity. Symptoms aggravated by nothing. Symptoms alleviated by nothing. EMS reports right-sided facial droop (possibly increased from baseline) . 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 Tobacco abuse disorder. PMHx includes DM, HTN , COPD, and CVA. An EKG reveals NSR and non-specific ST changes in V5-V6. CT brain reveals Mild degenerative changes without acute intracranial abnormality. Findings were reported to Dr. Stratton over the telephone at 1243 hours on December. ED physician has reviewed this radiology report and agrees. CTA head reveals 1. ATHEROMATOUS DISEASE. 2. NO INTERNAL CAROTID ARTERY STENOSIS BY NASCET CRITERIA. 3. NO ANEURYSM, VASCULAR MALFORMATION, OCCLUSION, OR STENOSIS OF THE VISUALIZED. INTRACRANIAL CIRCULATION. ED physician has reviewed this radiology report and agrees. Dr. Samuels (neurologist) states he will see the patient in the ED, we do not know the onset time, and these may be residual effects from her previous CVA. After Dr. Dean consult, he reports no clear onset of symptoms and recent surgery, so the patient is not a TPA candidate. He feels she should be admitted, observed, and have an MRI. Consulted Dr. Ramesh Fletcher (hospitalist) at 1411 who agrees to admit. The patient is agreeable with this plan. - Differential Dx Differential Diagnoses Neuro: Positive: Birmingham's Palsy, Cerebrovascular Accident, Coronary Artery Disease, Dysrhythmia, Headache, Intracranial Bleed, Transient Ischemic Attack - Diagnoses Provider Diagnoses: CVA (cerebral vascular accident) - Physician Notifications Discussed Care Of Patient With: Ian Samuels Time Discussed With Above Provider: 11:45 Instructed by Provider To: Other - Dr. Samuels (neurologist) states he will see the patient in the ED, we do not know the onset time, and these may be residual effects from her previous CVA. After Dr. Dean consult, he reports no clear onset of symptoms and recent surgery, so the patient is not a TPA candidate. He feels she should be admitted, observed, and have an MRI. Consulted Dr. Ramesh Fletcher (hospitalist) at 1411 who agrees to admit. Discharge - Discharge Plan Condition: Stable Disposition: ADMITTED TO [facility] Referrals: Yamilet Winn MD [Primary Care Provider] - The documentation as recorded by the Lesvia leigh Alfonso accurately reflects the service I personally performed and the decisions made by me, Robert Stratton MD.
[2016-12-30] MEDS ORDERED: Dextrose 50% VIAL 50 ml IV PRN (14:56)
[2016-12-30] MEDS ORDERED: Dextrose 50% Syringe 50 ML* 25 GM/50 ML SYRINGE ONE (14:58)
--- NOTE | 2016-12-30 15:45 | HP ---
History of Present Illness - History of Present Illness Reason for Visit: Weakness, History of Present Illness: 71 year old female PMH [place] Palsy x 1 month, DM, HTN, COPD, depression, anxiety presenting with weakness, and worsened numbness on left side of body. Pt is a poor historian and additional history provided by of step- daughter Jean-Claude De Leon. Pt called out to son as she was unable to get out of bed. With assistance the pt seemed to be falling toward the left side of her body and felt numb. Diaphoresis and dizziness attested. Helped to bathroom (did not urinate) but continued to have gait unsteadiness and so ambulance called. Pt with recent admission 11/06/16 for dizziness, right sided facial droop, speech impediment and was diagnosed with Birmingham's Palsy. MRI of Cspine demonstrated C3- C4 myelopathy, neurosurgery performed anterior cervical diskectomy and fusion on 11/11/[address] Be[address] In ED CT Head did not show acute infarction and CT Angio Head without evidence of stenosis. Blood glucose was 41, dextrose amp given. Pt has health aides who adminster her medications which include metformin and glipizide. Pt attests to chronic SOB. Denies chest pain, nausea, vomiting, abdominal pain, diarrhea, increased frequency, blood in BMs. 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 Pt ate only toast this AM. - Past Medical History Cardiac: HTN, Hyperlipidemia Pulmonary: COPD ACCOUNTING SPECIALIST: Other - [place]'s Palsy Endocrine: Diabetes Review of Systems - Review of Systems Constitutional: Positive: Sweats, Weakness, Malaise. Negative: Fever, Chills Eyes: Negative: Pain, Vision Change Respiratory: Positive: Shortness of Breath. Negative: Cough, Dry Cardiovascular: Positive: Light Headedness. Negative: Chest Pain, Palpitations Gastrointestinal: Negative: Nausea, Vomiting, Abdominal Pain, Diarrhea, Constipation, Melena, Hematochezia Genitourinary: Negative: Dysuria, Frequency, Incontinence Musculoskeletal: Negative: Neck Pain Neurological: Positive: Weakness, Numbness - Medications/Allergies Allergies/Adverse Reactions: Allergies Allergy/AdvReac Type Severity Reaction Status Date / Time Codeine Allergy Intermediate Nausea And Verified 11/06/16 12:53 Vomiting Exam - Exam Vital Signs: Vital Signs (72 hours) 12/30/16 12/30/16 11:29 12:02 Temperature 97.5 F 97.5 F Pulse Rate 94 94 Respiratory 20 20 Rate Blood Pressure 166/118 166/118 (mmHg) O2 Sat by Pulse 96 96 Oximetry Lungs: Clear to auscultation Cardiovascular: Regular rate, Normal S1, Normal S2 Abdomen: Soft, No tenderness, No hepatospenomegaly, No masses Extremities: No clubbing, No cyanosis, No edema Skin: No rashes, No breakdown Neurological: Strength at 5/5 X4 ext, Other - attests to numbness in bilateral hands. right sided facial droop, right eye open, left eye barely able to open ( pre-dextrose) Assessment/Plan - Assessment/Plan Assessment: 1) Weakness, Diaphoresis, Numbness: Ddx hypoglycemia (41 in Ed) in setting of glipizide, metformin, poor po intake. left eye muscle strength improved after dextrose administration. Facial droop unchanged from prior admission. POCT q1hr prn hypoglycemia until normalization then qac qhs. hold home glipizide, metformin. Differential includes TIA/cva, but without clear new focal neurological deficits, negative CT Head, CTAngio Head and more likely alternative diagnosis of hypoglycemia will defer to Neurology about any potential Brain MRI. 2) DM - hold glipizide 10mg bid /metformin 500mg bid as above, POCT qac qhs. A1C 5.8% recently. Would recommend not continue glipizide upon discharge 3)HTN -continue home valsartan 320mg daily, amlodipine 10mg daily. Clarify if taking HCTZ 12.5mg (was a recent discharge med but not on her home list) 4)COPD - continue home albuterol 2 puffs q6 prn, spiriva 5) Hyperlipidemia - continue atorvastatin 40mg daily 6) Depression, Anxiety - continue home citalopram 20mg daily, buspirone 7.5mg BID continue nasonex, aspirin CODE: DNR per discussion with patient.
--- NOTE | 2016-12-30 16:14 | CONS ---
NEUROLOGY CONSULTATION: DATE OF CONSULT: 12/30/16 REFERRING PHYSICIAN: Dr. Stratton LOCATION: She is in the emergency room to be admitted. CHIEF COMPLAINT: Fall, weakness. HISTORY OF PRESENT ILLNESS: Lakshmi Molina is a 71-year-old woman who got out of bed this morning at an unclear time. She is not a very good historian and states she woke up about 6. She states she was walking to the bathroom at about 9:30 and fell. It is not clear to me if she had been up and walking between 6 a.m. or 9:30 or not, and it is hard to pin her down on that. She said that she yelled for help. Her is disabled and apparently was not able to help her. She called and apparently eventually her son-in-law came by. They had difficulty getting her up as best as I can tell. It sounds as though her physical therapist came for her home physical therapy and it was at that time that an ambulance was summoned. A Code Jarrell was called. In my evaluation at approximately 12:15, she was at least 2 hours and 45 minutes to 3 hours into onset, but again onset is not clearly defined. She says that she just feels "blah." She does not describe any specific focal weakness. She does not have any headache or neck pain. She does not report any change in vision. She has not had any recent sweats or chills. She was just hospitalized last month. 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 On Dr. Gertrudis Miramontes's examination on 11/06/16, she was noted to have a peripheral pattern right facial palsy and pretty good strength in upper and lower extremities other than pain about the right knee. She had diffuse hyperreflexia with equivocal plantar responses. She had an MRI of the brain, which did not reveal any evidence of an acute infarction and an MRI of the cervical spine, which revealed cervical stenosis, possible myelomalacia. She was seen by MIGUEL Funes, and Dr. Be in neurosurgical consultation and underwent cervical decompressive surgery on 11/11/16. She was noted preop and postop to have some numbness in her hands bilaterally. She states that she has been at home and healing well. She sounds like she uses a walker or a cane to walk "sometimes." She is getting home PT. PAST MEDICAL HISTORY: Notable for COPD with ongoing tobacco use, type 2 diabetes, hypertension, hyperlipidemia, depression, and anxiety. MEDICATIONS: At home from prior records indicate she is on: 1. Metformin 500 mg p.o. b.i.d. 2. Glipizide 10 mg p.o. b.i.d. 3. Citalopram 20 mg p.o. daily. 4. Buspirone 7.5 mg p.o. b.i.d. 5. Atorvastatin 40 mg p.o. daily. 6. Amlodipine 2.5 mg p.o. daily. 7. Valsartan 320 mg p.o. daily. 8. Albuterol 2 puffs q. 6 hours p.r.n. ALLERGIES: She is listed as having an allergy to CODEINE. REVIEW OF SYSTEMS: Currently negative for headache or neck pain. She denies any numbness in her limbs or face. She denies any change in vision. No chest pain. She has chronic shortness of breath. No abdominal pain. PHYSICAL EXAM: General: She is somewhat disheveled with poor hygiene. Vital Signs: Temperature 97.5 temporarily, blood pressure initially 166/118 but subsequently it is down to 140/80, heart rate is running in the 80s and appears to be in sinus on the monitor, respiratory rate is 20. Oxygen saturation is 96 % on room air. Head is atraumatic. Heart: Regular rate and rhythm. I do not hear any murmurs. Carotid pulses are present and I do not hear any bruits. Oral mucosa is moist and atraumatic. Lungs: Reveal diffuse wheezes. Neurological Exam: Pupils are about 3 mm and react consensually to light 2.5 mm. Eye movements seen full other than perhaps some restriction of abduction in the right eye. Visual saha are full to confrontation, however. She has a peripheral pattern right facial palsy. She has some blepharospasm about the left eye, but no facial weakness. Facial sensation to pin and light touch is reported as symmetric. Tongue protrudes in the midline. She has a mild buccal dysarthria. Hearing is poor bilaterally. Motor Exam: Reveals paratonia diffusely. She may have a spastic catch in the left more than the right leg. She has pretty good strength proximally and distally in upper and lower extremities other than a mild right arm drift. She has a mild drift to both legs with sustained elevation, but she offers resistive strength in both and distal strength seems to be preserved. She is diffusely hyperreflexic. Plantar responses are extensor bilaterally. Sensory exam to pin is symmetrical in upper and lower extremities. Vibration is diminished in the feet. She is alert and a poor historian. It is hard to maintain her attention and concentration and she gives inconsistent answers. Language is simple, but fluent. DIAGNOSTIC STUDIES/LAB DATA: Includes CT scan of the brain, which I reviewed and is fairly normal. May be some hypodensity in the left occipital-parietal area, but it is unchanged from the scan from last month. CT angiogram report is pending, but my preliminary review of the study does not reveal any major vessel stenosis. Laboratory data back so far is notable for a CBC with an elevated white blood cell count at 16.1 and left shift with 85% neutrophils. Chemistries are still pending. INR is normal at 0.94 and PTT at 35.8. IMPRESSION: Fall in a patient with peripheral right facial palsy that goes back over a month and evidence of cervical myelopathy, which also goes back. She may have an infection and she has an elevated white blood cell count, but so far no fever and her labs are still pending. I do not see that she is a tPA candidate as she does not have clear new neurological deficits, time of onset is unclear, and she had spinal surgery within the last 2 months. At this point, I will continue the evaluation. Her labs are still pending and she will need a urinalysis check. Unless an infection is found, I would recommend that she have another MRI of her brain to see if she has an ischemic event this time, but currently the evaluation is incomplete and it seems unclear whether there is any cerebrovascular component to her current presentation or not. I discussed my initial impression with Dr. Stratton. [id number]/[facility] #: [id number] LORETO
[2016-12-30] MEDS ORDERED: Atorvastatin* 40 MG TAB PO SCH (18:00)
[2016-12-30] MEDS: busPIRone TAB* 15 MG PO SCH (20:35)
[2016-12-30] MEDS: Mometasone/Formoter 200/5 MDI INH SCH (21:17)
[2016-12-31 04:55] LABS: BUN/Creatinine Ratio 34.1 (8-20); Calcium 9.1 mg/dL (8.6-10.3); EGFR African American 196.7 (>60); EGFR Non-African American 152.9 (>60); Potassium 3.2 mmol/L (3.5-5.0)
[2016-12-31 04:59] LABS: Hematocrit 36 % (35-47); Hemoglobin 12.1 g/dl (12.0-16.0); Mean Corpuscular HGB Conc 34 g/dl (31-36); Mean Corpuscular Hemoglobin 28 pg (27-31); Mean Corpuscular Volume 82 fL (80-97); Mean Platelet Volume 9 um3 (7.4-10.4); Red Blood Count 4.31 10^6/ul (4.0-5.4); Red Cell Distribution Width 15 % (10.5-15)
[2016-12-31] MEDS ORDERED: Dextrose 50% VIAL 50 ml IV PRN (07:15)
[2016-12-31] MEDS ORDERED: Potassium Chlor TAB* 20 MEQ TAB.ER PO ONE (07:47)
[2016-12-31] MEDS ORDERED: Enoxaparin(*) 40 MG/0.4 ML SYR SUBCUT SCH (08:00)
[2016-12-31] MEDS: Mometasone/Formoter 200/5 MDI INH SCH (08:02)
[2016-12-31] MEDS ORDERED: Spiriva Inhaler DEVICE* 1 EACH DEVICE INH ONE (09:00)
[2016-12-31] MEDS ORDERED: amLODIPine TAB* 5 MG PO SCH (09:00)
[2016-12-31] MEDS ORDERED: Aspirin EC Low Dose* 81 MG TAB.EC PO SCH (09:00)
[2016-12-31] MEDS ORDERED: Citalopram TAB* 20 MG PO SCH (09:00)
[2016-12-31] MEDS ORDERED: Tiotropium CAP.INH* CAP.INH/18 MCG INH SCH (09:00)
[2016-12-31] MEDS ORDERED: Valsartan TAB* 160 MG PO SCH (09:00)
[2016-12-31] MEDS ORDERED: Artificial Tears* 15 ML BTL BOTH EYES PRN (09:35)
[2016-12-31] MEDS: busPIRone TAB* 15 MG PO SCH (10:35)
[2016-12-31 11:23] VITALS: BP 105/50
--- NOTE | 2016-12-31 18:02 | PN ---
Hospitalist Progress Note Pt with continued hypoglycemia overnight to 50-60s, improved with crackers + juice and improved over course of day. Talked with neurology who recommended Brain MRI wo contrast which was then performed. Official read pending but have discussed with Neurology who did not see evidence of CVA. Pt to be discharged home with cessation of her glyperide. Discharge summary to be dictated.
--- NOTE | 2016-12-31 23:12 | DS ---
CC: Dr. Yamilet Winn * DISCHARGE SUMMARY: DATE OF ADMISSION: 12/30/16 DATE OF DISCHARGE: 12/31/16 ADMITTING PHYSICIAN: Vivek Forrest MD ATTENDING PHYSICIAN: Vivek Forrest MD PRIMARY DIAGNOSES: 1. Hypoglycemia secondary to sulfonylurea use. Causing Altered mental status, dizziness, diaphoresis 2. Fatigue SECONDARY DIAGNOSES: 1. 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 2. Type 2 diabetes. 3. Hypertension. 4. Hyperlipidemia. 5. Anxiety. 6. Depression. 7. Chronic obstructive pulmonary disease. MEDICATIONS ON DISCHARGE: Of note only medication change is cessation of glipizide 10 mg twice daily. 1. Alprazolam 0.25 mg t.i.d. p.r.n. 2. Albuterol 2 puffs inhalation q.6 p.r.n. 3. Alendronate 70 mg tablet p.o. weekly. 4. Aspirin 81 mg enteric coated p.o. daily. 5. Atorvastatin 40 mg p.o. q.p.m. 6. Citalopram 20 mg p.o. q.a.m. 7. Fluticasone nasal 2 sprays both nostrils daily. 8. Fluticasone/salmeterol 500/50 one puff inhaled b.i.d. 9. Mometasone nasal 1 spray both nostrils daily. 10. Tiotropium capsule inhaled daily 18 mcg. 11. Valsartan 320 mg p.o. daily. 12. Buspirone 15 mg tablet split up 7.5 mg p.o. b.i.d. 13. Metformin 500 mg tab p.o. q.a.m. and 1000 mg tablet p.o. q.p.m. 14. Amlodipine 5 mg tab taken 10 mg p.o. daily. 15. Artificial Tears 1 drop both eyes q.2 hours p.r.n. HISTORY OF PRESENT ILLNESS AND HOSPITAL COURSE: This is a 71-year-old female with past medical history of recent Birmingham's palsy/7th facial nerve paralysis diagnosed last month, diabetes mellitus type 2, hypertension, COPD, myelopathy, depression, anxiety, presenting with weakness and worsening numbness in the left side of her body. For full details, see H and P of 12/30/16. The patient was a poor historian, but additional history provided by the (Jean-Claude De Leon ) of her step-daughter. The patient called out to Jean-Claude on the day of admission , unable to get out of bed. She seemed to be falling over to the left side upon being helped to the bathroom and attested to increased numbness on that side of the body. She attested to diaphoresis and dizziness and with continued gait unsteadiness, an ambulance was called. The patient's had recent admission on 11/06/16 for dizziness, right-sided facial droop, speech impediment, resulted in diagnosis of Birmingham's palsy, but of note no prednisone or antiviral medications given at that time. Additional MRI of the C-spine demonstrates C3- C4 myelopathy and surgery performed anterior cervical diskectomy and fusion on 11/11/[address] Be. Here in the ED, CT of her head did not show any acute infarction and CT angio of the head did not show any evidence of stenosis. Her blood glucose, however, was noted to be 41 and an amp of dextrose was given. She attested to have a poor appetite with only toast ingested on the morning of admission. Her visiting health aides administrated medications which do include metformin and glipizide b.i.d. The patient was admitted to the hospital on observation status and her blood glucose was monitored closely overnight; however, did fall again to the 50s and 60s and was treated with additional orange juice and crackers. By the end of hospital day #2 hypoglycemia had resolved. Of note, she initially had a white count of 16. Her initial urinalysis showed trace ketones, 2+ protein, and squamous epithelial cells, but no nitrites or leukocyte esterase or white cells or bacteria. No urine culture was performed. The patient was otherwise nontoxic appearing, with 1/4 SIRS criteria and white count had completely resolved on hospital day admission #2. Neurology had been consulted and recommended getting a brain MRI, which was obtained on hospital day #2. It did not show any evidence of and acute CVA, and continued evidence of chronic small vessel changes. The patient attested to some difficulty reading the menu, which improved after eye glasses were cleaned and eye drops were administered. The patient attested to some suprapubic pain, but postvoid residual was negative for any retention of her urine. Upon discussion with Neurology, there was no role for prednisone or antivirals at this stage given the duration of symptoms. The patient should follow up with Dr. Yamilet Winn and has appointment arranged on 01/09/17 at 3 p.m. She should continue with her visiting nurse service. At followup, please continue to evaluate for improvement of her right 7th nerve palsy, which today still leaves the patient with significant right-sided facial nasolabial fold droop and inability to completely close her right eye. [id number]/[facility] #: [id number] [facility] HOSPITALNydia
--- NOTE | 2017-01-01 07:41 | RAD ---
HISTORY: Dizziness, [place]ring[place]'s palsy, fall, history of stroke COMPARISONS: November 06, 2016 TECHNIQUE: The following sequences were obtained of the head: Sagittal T1-weighted images, axial T2-weighted images, axial FLAIR images, axial susceptibility weighted images, axial T1-weighted images. Additionally, axial diffusion-weighted images were obtained with calculated apparent diffusion coefficients. FINDINGS: HEMORRHAGE/INFARCT: There is no hemorrhage or acute infarct. MASSES/SHIFT: There is no mass or shift. EXTRA-AXIAL SPACES/MENINGES: There are no extra-axial fluid collections. SULCI AND VENTRICLES: The sulci and ventricles are normal in size and position for the patient's stated age. CEREBRUM: There are multiple scattered small foci of elevated T2/FLAIR signal within the periventricular and subcortical white matter. BRAINSTEM: There is elevated T2/FLAIR signal centrally within the pontine white matter. CEREBELLUM: There are no focal parenchymal abnormalities. The cerebellar tonsils are normal in size and position. SELLA: The sella is normal. PINEAL: The pineal region is clear. CP ANGLE/TEMPORAL BONES: The labyrinthine structures are grossly normal. VESSELS: Normal flow-voids are noted within the visualized vertebral vasculature. DIFFUSION ABNORMALITIES: There are no diffusion abnormalities. PARANASAL SINUSES/MASTOIDS: The paranasal sinuses are clear. ORBITS: The orbits are unremarkable. BONES AND SOFT TISSUE: No bone or soft tissue abnormalities are noted. OTHER: None IMPRESSION: 1. AGAIN NOTED ARE MATTER CHANGES WITHIN THE CEREBRAL HEMISPHERES AND BRAINSTEM, NONSPECIFIC, BUT SUGGESTIVE OF CHRONIC SMALL VESSEL ISCHEMIA. 2. NO RESTRICTED DIFFUSION TO SUGGEST ACUTE INFARCT.
== END 2016-12-31 18:46 | disposition home or self-care (01) ==
LOC: ED 11:20 → MEDTELE 14:20
PROVIDERS: ADMIT Internal Medicine; ATTEND Internal Medicine
DX: R41.82 Altered mental status, unspecified (principal); E11.649 Type 2 diabetes mellitus with hypoglycemia without coma; T38.3X5A Adverse effect of insulin and oral hypoglycemic [antidiabetic] drugs, initial encounter; Z79.84 Long term (current) use of oral hypoglycemic drugs; R42 Dizziness and giddiness; R61 Generalized hyperhidrosis; R53.83 Other fatigue; G51.0 Bell's palsy; R06.02 Shortness of breath; I10 Essential (primary) hypertension; Z79.82 Long term (current) use of aspirin; E78.5 Hyperlipidemia, unspecified; F41.8 Other specified anxiety disorders; J44.9 Chronic obstructive pulmonary disease, unspecified; Z79.899 Other long term (current) drug therapy
CPT/HCPCS: 36415; 70450; 70496; 70498; 70551; 80048; 80053; 80061; 81003; 81015; 83605; 84484; 85025; 85610; 85730; 93005; 94640; 99284; A9270-GY; G0378; G8978-GP-CI; G8979-GP-CH; G8980-GP-CI; G8987-GO-CI; G8988-GO-CI; G8989-GO-CI; J1650; Q9967

== ENCOUNTER 2018-03-25 12:54 | Inpatient (IN) | payer MEDICARE, BC ==
--- NOTE | 2018-03-25 13:04 | ED ---
HPI Diabetic - HPI Summary HPI Summary: Patient is a 72 y/o F brought in by ambulance with complaints of slurred speech , fatigue, lethargy. Patient took a nap at around 1030 today after breakfast. When she was awoken by family members, she was noted to be fatigued, lethargic, and to have slurred speech. EMS was called, who obtained BG of 53. Patient was started on D10, which provided relief in Sx. Most recent BG was 213 per EMS. Patient is a diabetic, patient takes metformin. Patient claims she was seen at [facility] three days ago for left shoulder dislocation. In room, patient reports left shoulder pain. Per medical records, patient had comminuted fracture of proximal left humerus during ED visit three days ago. NULL is denied. PMHx of COPD, HTN is noted. Patient denies being on blood thinners in the room. On triage, pain is rated 6/10, nothing is noted to aggravate/alleviate Sx. Home medications and allergies are reviewed. - History Of Current Complaint Time Seen by Provider: 03/25/18 12:55 Hx Obtained From: Patient, EMS, Medical Records Onset/Duration: Lasting Hours - onset between 1030 and noon, Resolved Timing: Hours - onset between 1030 and noon Character: Lethargic, Other - fatigued Aggravating: Nothing Alleviating: Nothing Associated Signs & Symptoms: Negative - Allergies/Home Medications Allergies/Adverse Reactions: Allergies Allergy/AdvReac Type Severity Reaction Status Date / Time codeine Allergy Nausea And Verified 03/25/18 13:25 Vomiting Home Medications: Home Medications Losartan Potassium 100 mg PO DAILY 03/25/18 [History Confirmed 03/25/18] glipiZIDE [Glipizide] 10 mg PO BID 03/25/18 [History Confirmed 03/25/18] PMH/Surg Hx/FS Hx/Imm Hx Endocrine/Hematology History: Reports: Hx Diabetes Cardiovascular History: Reports: Hx Hypertension Denies: Hx Pacemaker/ICD Respiratory History: Reports: Hx Chronic Obstructive Pulmonary Disease (COPD) GI History: Reports: Hx Gastroesophageal Reflux Disease Musculoskeletal History: Reports: Hx Arthritis Sensory History: Reports: Hx Contacts or Glasses Denies: Hx Hearing Aid Opthamlomology History: Reports: Hx Contacts or Glasses Neurological History: Reports: Hx CVA, 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 galbladder. cervical fusion - Immunization History Date of Tetanus Vaccine: unkown Date of Influenza Vaccine: Feb 2018 Infectious Disease History: Denies: Hx Clostridium Difficile, Hx Hepatitis, Hx Human Immunodeficiency Virus (HIV), Hx of Known/Suspected MRSA, Hx Shingles, Hx Tuberculosis, Traveled Outside the [place] in Last 30 Days - Family History Known Family History: Positive: Cardiac Disease, Hypertension, Respiratory Disease, Other - [place]. - Social History Alcohol Use: None Hx Substance Use: No Substance Use Type: Reports: None Hx Tobacco Use: Yes Smoking Status (MU): Heavy Every Day Tobacco Smoker Review of Systems Positive: Fatigue, Other - POSITIVE - LETHARGIC Positive: Other - POSITIVE - LEFT SHOULDER PAIN Positive: Slurred Speech. Negative: Headache All Other Systems Reviewed And Are Negative: Yes Physical Exam - Summary Physical Exam Summary: VITAL SIGNS: Reviewed. GENERAL: Patient is a well-developed, nourished, and dishevelled female who is lying comfortable in the stretcher. Patient is not in any acute respiratory distress. HEAD AND FACE: No signs of trauma. No ecchymosis, hematomas or skull depressions. No sinus tenderness. EYES: PERRLA, EOMI x 2, No injected conjunctiva, no nystagmus. EARS: Hearing grossly intact. Ear canals and tympanic membranes are within normal limits. MOUTH: Oropharynx within normal limits. NECK: Supple, trachea is midline, no adenopathy, no JVD, no carotid bruit, no c- spine tenderness, neck with full ROM. CHEST: Symmetric, no tenderness at palpation LUNGS: Clear to auscultation bilaterally. No wheezing or crackles. CVS: Regular rate and rhythm, S1 and S2 present, no murmurs or gallops appreciated. ABDOMEN: Soft, non-tender. No signs of distention. No rebound no guarding, and no masses palpated. Bowel sounds are normal. EXTREMITIES: No edema, no cyanosis or clubbing. Left shoulder ecchymosis, hematoma, decreased ROM at LUE secondary to pain. No other abnormal findings otherwise. NEURO: Alert and oriented x 3. No acute neurological deficits. Speech is normal and follows commands. SKIN: Dry and warm Triage Information Reviewed: Yes Vital Signs On Initial Exam: Initial Vitals Temp Pulse Resp BP Pulse Ox 97.6 F 85 22 183/67 93 03/25/18 13:10 03/25/18 13:10 03/25/18 13:10 03/25/18 13:10 03/25/18 13:10 Vital Signs Reviewed: Yes Diagnostics - Laboratory Result Diagrams: 03/25/18 13:15 03/25/18 19:14 Lab Statement: Any lab studies that have been ordered have been reviewed, and results considered in the medical decision making process. - Radiology CXR Radiology Interpretation Completed By: Radiologist Summary of Radiographic Findings: IMPRESSION: NO EVIDENCE FOR ACTIVE CARDIOPULMONARY DISEASE. THIS REPORT WAS REVIEWED BY ED PHYSICIAN. - CT BRAIN CT CT Interpretation Completed By: Radiologist Summary of CT Findings: IMPRESSION: 1. NO EVIDENCE FOR ACUTE INTRACRANIAL ABNORMALITY. 2. FINDINGS SUGGESTIVE OF MILD CHRONIC SMALL VESSEL ISCHEMIC CHANGES. THIS REPORT WAS REVIEWED BY ED PHYSICIAN. - EKG 1350 Cardiac Rate: NL - rate of 84 bpm EKG Rhythm: Sinus Rhythm Summary of EKG Findings: EKG showed sinus rhythm with rate of 84 BPM, no ST elevation. Re-Evaluation - Re-Evaluation First Eval Re-Evaluation Time: 14:35 Comment: Results of labs and tests were discussed with patient, patient is agreeable with admission. Diabetic Course/Dx - Course Assessment/Plan: Patient is a 72 y/o F brought in by ambulance with complaints of slurred speech, fatigue, lethargy. Patient took a nap at around 1030 today after breakfast. When she was awoken by family members, she was noted to be fatigued, lethargic, and to have slurred speech. EMS was called, who obtained BG of 53. Patient was started on D10, which provided relief in Sx. Most recent BG was 213 per EMS. Patient is a diabetic, patient takes metformin. Patient claims she was seen at [facility] three days ago for left shoulder dislocation. In room , patient reports left shoulder pain. Per medical records, patient had comminuted fracture of proximal left humerus during ED visit three days ago. NULL is denied. PMHx of COPD, HTN is noted. Patient denies being on blood thinners in the room. On triage, pain is rated 6/10, nothing is noted to aggravate/ alleviate Sx. Home medications and allergies are reviewed. Blood work shows WBCs of 12.3, hemoglobin 11.7 hematocrit 36 and platelets 251. Sodium is 128, potassium is 5.5, anion gap is 13, BUN is 70 creatinine is 3.6 consistent with an acute renal failure possibly secondary to dehydration. Glucose is 114 and total CPK is 559. Urinalysis is contaminated but possibly a UTI. Urine toxicology is negative. Chest x-ray shows no evidence of acute pathology. Head CT impression: No evidence for acute intracranial abnormality. Findings suggestive of mild chronic small vessel ischemic changes. In the ED course the patient was given IV fluids for dehydration, the patient was given Rocephin for possible UTI. I discuss my physical exam, findings and test results with Dr. Simmons from the hospitalist services and she agrees to admit patient to her services. Patient is hemodynamically stable alert and oriented x 3. - Diagnoses Differential Dx: CVA, Hypoglycemia, Pneumonia, Sepsis Provider Diagnoses: Acute renal failure, Dehydration, UTI (urinary tract infection) - Physician Notifications Discussed Care Of Patient With: Shaneka Simmons Time Discussed With Above Provider: 14:29 Instructed by Provider To: Other - Patient's case was discussed with Dr. Simmons at 1429. Dr. Simmons accepts patient for admission. Discharge - Sign-Out/Discharge Documenting (check all that apply): Patient Departure - admit - Discharge Plan Condition: Good Disposition: ADMITTED TO [facility] - Billing Disposition and Condition Condition: GOOD Disposition: Admitted to [facility] - Attestation Statements Document Initiated by Yamileibeleonora: Yes Documenting Scribe: GLENN GOETZ Provider For Whom Herlinda is Documenting (Include Credential): ABDULLAHI GUERRA MD Scribe Attestation: I, GLENN GOETZ, scribed for ABDULLAHI GUERRA MD on 03/26/18 at 0712. Scribe Documentation Reviewed: Yes Provider Attestation: The documentation as recorded by the GLENN leigh accurately reflects the service I personally performed and the decisions made by me, ABDULLAHI GUERRA MD
[2018-03-25 13:30] LABS: Hematocrit 36 % (35-47); Hemoglobin 11.7 g/dl (12.0-16.0); Mean Corpuscular HGB Conc 32 g/dl (31-36); Mean Corpuscular Hemoglobin 25 pg (27-31); Mean Corpuscular Volume 78 fL (80-97); Mean Platelet Volume 8.8 fL (7.4-10.4); Platelet Count 251 10^3/ul (150-450); Red Cell Distribution Width 27 % (10.5-15); White Blood Count 12.3 10^3/ul (3.5-10.8)
[2018-03-25 13:40] LABS: EGFR Non-African American 12.4 (>60)
[2018-03-25 13:43] LABS: INR 0.98 (0.77-1.02)
[2018-03-25 13:49] LABS: Urine Appearance Cloudy; Urine Blood 2+ (Negative); Urine Color Yellow; Urine Ketones Negative (Negative); Urine Protein 2+(100 mg/dL) (Negative); Urine Red Blood Cell 1+(3-5/hpf) (Absent); Urine Specific Gravity 1.012 (1.010-1.030); Urine Urobilinogen Negative (Negative); Urine White Blood Cell 3+(>20/hpf) (Absent)
[2018-03-25 13:53] LABS: ABS Basophils 0 10^3/ul (0-0.2); ABS Eosinophils 0 10^3/ul (0-0.6); ABS Monocytes 0.6 10^3/ul (0-0.8); ABS Neutrophils 10.7 10^3/ul (1.5-7.7); ABS Nucleated RBC 0 10^3/ul; Eosinophil % 0 % (0-6); Lymphocyte % 8.4 % (25-47); Nucleated Red Blood Cells % 0
[2018-03-25] MEDS ORDERED: cefTRIAXone(*) 1 GM in NS 0.9% 50 ML* 50 ML IVPB ONE (14:12)
[2018-03-25] MEDS ORDERED: NS 0.9% 1000 ML* 1,000 ML IV ONE (14:14)
[2018-03-25] MEDS ORDERED: Nicotine Inhaler* 10 MG AMP INH PRN (15:09)
[2018-03-25] MEDS ORDERED: Ondansetron INJ* 2 MG/ML VIAL IV PRN (15:09)
[2018-03-25] MEDS ORDERED: Artificial Tears* 15 ML BTL BOTH EYES PRN (15:13)
[2018-03-25] MEDS ORDERED: NS 0.9% 1000 ML* 1,000 ML IV SCH (15:15)
[2018-03-25] MEDS ORDERED: Dextrose 50% Syringe 50 ML* 25 GM/50 ML SYRINGE IV PUSH PRN (15:17)
--- NOTE | 2018-03-25 15:26 | PN ---
Hospitalist Progress Note Date of Service: 03/25/18 HOSPITALIST ADDENDUM Case reviewed and d/w Roderick RIVERA. Mrs Molina is a 72yo F with PMH of DM, HTN, COPD, GERD, recent ED visit for humeral fracture after a fall, who was noted to be lethargic earlier today, found to be hypoglycemic. Labs and imaging reviewed. Impression is her hypoglycemia is secondary to glipizide use in the setting of BEATRIZ. BEATRIZ appears to be due dehydration, Losartan and Ibuprofen use. Agree with current management.
[2018-03-25] MEDS ORDERED: hydrALAZINE IV* 20 MG/ML VIAL IV SLOW PU PRN (15:40)
[2018-03-25] MEDS ORDERED: Albuterol 2.5 MG/3 ML NEB.SOL* (0.083%) INH PRN (15:42)
[2018-03-25] MEDS: Atorvastatin* 40 MG TAB PO SCH (16:51)
[2018-03-25] MEDS: oxyCODONE TAB* 5 MG TAB PO PRN (16:51)
[2018-03-25] MEDS ORDERED: Mouth Piece, Nicotine* 1 EACH CARTRIDGE INH ONE (17:00)
[2018-03-25] MEDS ORDERED: D5W 1/2 NS 1000 ML BAG* 1,000 ML IV SCH (18:00)
[2018-03-25] MEDS ORDERED: D10W 1000 ML BAG* 1,000 ML IV SCH (18:00)
[2018-03-25] MEDS ORDERED: Octreotide Acetate* 500 MCG in NS 0.9% 100 ML* 100 ML IVPB ONE (18:16)
[2018-03-25] MEDS: NS 0.9% 1000 ML* 1,000 ML IV SCH (18:50)
[2018-03-25 19:49] LABS: EGFR Non-African American 14.4 (>60)
--- NOTE | 2018-03-25 20:26 | HP ---
CC: Dr. Winn; Dr. Shaneka Figueroa* ADMISSION HISTORY AND PHYSICAL: DATE OF ADMISSION: 03/25/18 PRIMARY CARE PROVIDER: Dr. Winn. MY ATTENDING WHILE IN THE HOSPITAL: Dr. Shaneka Figueroa* (dictated by MIGUEL Hyde). CHIEF COMPLAINT: Confusion, lethargy. HISTORY OF PRESENT ILLNESS: Ms. Molina is a 72-year-old female with past medical history significant for COPD, diabetes mellitus with a history of sulfonylurea- induced hypoglycemia, as well as a recent fall with a humerus fracture, for which she has been taking Tylenol, ibuprofen, and tramadol. The patient states that she has been taking 400 mg of ibuprofen approximately 4 to 6 times a day for her pain as well as Tylenol and tramadol. The patient states that this controlled her pain well. The patient before her fall states that she had some dizziness and palpitations and that she has this very infrequently , but has never been evaluated with cardiologic workup. The patient denies any chest pain, increased shortness of breath, or diaphoresis with these episodes. The patient denies loss of consciousness when she fell, just a feeling of wooziness. The patient has been compliant with her sling. The patient denies fevers or chills. The patient has nausea, which occurs approximately 3 times a day when she takes her medications. She cannot identify a particular medication that causes her nausea or this began after. The patient has a chronic cough and frequent shortness of breath for which she takes her rescue inhaler approximately 3 times a day. The patient still smokes cigarettes. The patient has been having an increase in her thirst since Thursday with what she believes to be a subsequent increase in fluid intake and urinary output. The patient cannot clarify whether her urine output increased before her thirst and fluid intake. The patient states that at the end last year or earlier this year, her primary care doctor mentioned something about kidney dysfunction; however, the most recent creatinine on record at this institution is 0.41. The patient has her granddaughter take care of her pill case as she has concerns with taking the correct medications. The granddaughter, who is with her at this examination , states that she has not had any issues; however, she states that she has been taking 10 mg of glipizide twice a day when the patient's pill bottle only states that it should be once a day. The patient is not sure why she was restarted on her glipizide after having issues with it before. The patient thinks she has been taking it for approximately 2 months. The patient has not noticed any blood in her urine, not noticed any change in the color of her urine. The patient has had urinary frequency, but no dysuria or feeling of incomplete emptying. The patient in the emergency department was given D10, which resolved her lethargy and brought her back to her baseline; however, the patient was found to have a creatinine of 3.6 and as such we were asked to evaluate for admission. PAST MEDICAL HISTORY: COPD/asthma; diabetes mellitus, type 2; hyperlipidemia; anxiety/depression; history of Birmingham's palsy; recent comminuted proximal humerus fracture; hypertension. PAST SURGICAL HISTORY: Vertebral surgery following a fall. MEDICATIONS: 1. Citalopram 20 mg p.o. daily. 2. Lipitor 40 mg p.o. nightly. 3. Spiriva 1 inhalation daily. 4. Albuterol 2 puffs inhalation q.4 hours as needed. 5. Amlodipine 5 mg p.o. daily. 6. Buspirone 7.5 mg p.o. b.i.d. 7. Metformin 1000 mg p.o. q.p.m. 8. Metformin 500 mg p.o. q.a.m. 9. Tramadol 50 mg p.o. q.6 hours as needed. 10. Glipizide 10 mg p.o. b.i.d., the patient has been taking. 11. Losartan 100 mg p.o. daily. ALLERGIES: CODEINE. FAMILY HISTORY: The patient's mother of breast cancer. The patient's father of an UT. The patient has 2 brothers, 1 of whom of complications of alcoholism and the other of whom is alcoholic, but has no known health problems. SOCIAL HISTORY: The patient is still a pack-a-day smoker and has smoked since she was 12 years old. The patient used to abuse alcohol, but has not had an alcoholic beverage in 21 years. The patient denies illicit drug use. 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 The patient is and is the main caregiver for her , who has multiple sclerosis. The patient has 3 children, all of whom are healthy. The patient's surrogate decision maker will be her granddaughter, Nahomi Velasco. REVIEW OF SYSTEMS: A 14-point review of systems was reviewed and is negative except as above in the HPI. PHYSICAL EXAMINATION GENERAL: The patient is a 72-year-old female, who appears stated age and sitting comfortably in bed, in no acute distress. VITAL SIGNS: At the time of evaluation, temperature 97.6, pulse rate 85, respiratory rate 22, oxygen saturation 93% on room air, blood pressure 172/68. HEENT: Head: Normocephalic, atraumatic. Sclerae anicteric. No conjunctival injection. Nasal mucosa moist. Oral mucosa moist. No pharyngeal erythema, discharge, or exudate. NECK: Supple, nontender. No lymphadenopathy. No carotid bruits auscultated. No JVD. RESPIRATORY: Diminished throughout. Slight wheezing in the right lung throughout. No adventitious lung sounds. CARDIAC: Regular rate and rhythm. No clicks, murmurs, gallops, or rubs. Pulses are 2+ in the bilateral dorsalis pedis, posterior tibial, and radial areas. ABDOMEN: Soft, nontender, nondistended. Bowel sounds present and normoactive in all 4 quadrants. No hepatosplenomegaly. No abdominal bruits auscultated. No hepatojugular reflux. GENITOURINARY: No suprapubic or CVA tenderness. MUSCULOSKELETAL: Pain with manipulation of the left arm. Pulse is intact distal to the injury. The patient's left arm is in a sling. NEUROLOGIC: Right-sided Birmingham's palsy with asymmetrical wrinkling of the forehead consistent with previous documented exams. No other cranial nerve deficits. No other focal deficits. Alert and oriented x3. SKIN: Clean, dry, and intact. No rash. DIAGNOSTIC STUDIES/LAB DATA: White blood cell count 12.3, hemoglobin 11.4, MCV 78, MCH 25, RDW 27, platelet count 251. Sodium 128, potassium 5.5, chloride 98, carbon dioxide 17, anion gap 13, BUN 70, creatinine 3.6, glucose 114, lactic acid 1.3, calcium 8.7, magnesium 2.1. Bilirubin 0.3, AST 35, ALT 20 , alkaline phosphatase 58. Ammonia 43. Creatine kinase 559. Troponin I of 0.02. Protein 6.7, albumin 3.6, globulin 3.1. TSH 2.21. Urine: Yellow, cloudy, 2+ protein, 2+ blood, 2+ leukocyte esterase, 3+ white blood cells, 1+ red blood cells, squamous epithelial cells, and bacteria present, negative glucose. Toxicology negative. Electrocardiogram shows normal sinus rhythm. No ST-segment elevation or depression. Normal axis. No hypertrophy or enlargement. No blocks. Rate of 84, QTc of 436. Brain CT read as no evidence for acute intracranial pathology, findings suggestive of mild chronic small vessel ischemic changes. Chest x-ray from 03/25/18 read as no evidence for active cardiopulmonary disease. ASSESSMENT AND PLAN/IMPRESSION: Ms. Molina is a 72-year-old female with past medical history significant for chronic obstructive pulmonary disease/asthma; diabetes mellitus, type 2; previous history of sulfonylurea-induced hypoglycemia , as well as a recent humerus fracture, who at home had been taking ibuprofen in conjunction with an CHRIS inhibitor and was found to have altered mental status and was brought to the hospital. The patient recently restarted on her glipizide, and was given D10, which returned her mental state to her baseline. The patient was found to have acute renal failure with a creatinine of 3.6, likely related to the combination of her CHRIS inhibitor and ibuprofen. The patient will have those medications stopped. She will be admitted to the hospital for close observation for both persistent hypoglycemia as well as improvement in her renal function. 1. Acute renal failure. The patient's creatinine has increased to 3.6 from 0.41 on her most recent record with corresponding changes in her BMP including elevated potassium, low carbon dioxide, high anion gap likely related to uremia. We will repeat BMP this evening after fluids have been given. The patient after her fall may have had worsening blood glucose control causing the increase in her thirst and urination leading her to be dehydrated and worsening her acute kidney injury. The patient and her granddaughter mentioned possibility of the patient having renal insufficiency at the end of last year or the beginning of this year. We will attempt to get records from the patient' s primary care doctor. If the patient's creatinine continues to worsen or there is other concern for kidney pathology that it is not acute tubular necrosis associated with medications and dehydration, Nephrology consult should be considered. The patient has no casts in her urine suggestive of a particular renal pathology. The patient has protein, blood, and white blood cells in her urine, which could be seen in the setting of acute tubular necrosis or nephritis. We will monitor based on response to treatment and kidney biopsy should also be considered. 2. Hypoglycemia. The patient's hypoglycemia is likely related to glipizide use , possibly at doses greater than what she was prescribed. This will be ascertained based on the records obtained from the patient's primary care doctor. This likely was in association with acute kidney injury causing increase in the half life of the patient's glipizide. While in the hospital, we will hold glipizide and metformin. We will check fingersticks initially every 4 hours and give dextrose as needed. We will resume fingerstick blood glucose coverage in the morning. If the patient is staying euglycemic at that time, assuming the patient's creatinine improves to a point where oral antihyperglycemic therapy is appropriate, the patient will need a different anti -hypoglycemic regimen outpatient. 3. Hypertension. The patient is hypertensive in the emergency department. We will continue the patient's amlodipine, hold losartan due to acute kidney injury. We will monitor the patient's blood pressure closely and introduce additional medications as needed. The patient will have hydralazine p.r.n. 4. Intermittent palpitations and dizziness. The patient has symptoms including with this recent fall concerning for arrhythmia. We will monitor the patient on telemetry and get a transthoracic echocardiogram. The patient could benefit from long-term cardiac monitoring outpatient if no arrhythmia is found while inpatient. 5. Hyperkalemia. We will recheck the patient's BMP this evening after fluid resuscitation. The patient has no EKG changes. If the patient has persistent hyperkalemia, we will attempt Kayexalate at that time. The patient is not appropriate for Lasix or insulin and dextrose therapy at this time due to acute kidney injury and hypoglycemia. 6. Anxiety and depression. Continue the patient's citalopram and buspirone. Hold tramadol and replace with oxycodone for concern for drug reaction as well as the avoidance of putting the patient on a third serotonergic agent, which should generally be avoided. 7. Recent humerus fracture. Continue the patient in a sling with pain control with oxycodone and Tylenol. If the patient is not able to be discharged before her orthopedic followup next week, the patient should have Orthopedics see her while in the hospital on a nonemergent basis. 8. FEN. The patient will have a renal diet and fluids as above. 9. Abnormal urinalysis. The patient has urinalysis consistent with possible urinary tract infection as well as increased urinary frequency. We will continue the patient on ceftriaxone until negative culture is obtained. 10. Chronic obstructive pulmonary disease/asthma. Continue the patient's Spiriva and albuterol nebulizers as needed. 11. DVT prophylaxis. The patient will have heparin subcu. The patient is a high risk. 12. Code status. The patient would like to be a DNR. The patient's surrogate decision maker will be her granddaughter, Nahomi Velasco, as above. 13. Disposition. The patient is admitted inpatient with estimated length of stay greater than 2 days and risk of complication unacceptable for outpatient treatment. TIME SPENT: Approximately 90 minutes was spent on admission of this patient, 30 of which was spent [id number] with the patient obtaining history and physical and discussing treatment plan. This plan was discussed with my attending, Dr. Shaneka Figueroa, and she is in agreement. MIGUEL HYDE [id number]/[facility] #: [id number] LORETO
[2018-03-25] MEDS: busPIRone TAB* 15 MG PO SCH (21:51)
[2018-03-25] MEDS: Heparin VIAL(*) 5000 UNITS/ML VIAL (FIVE THOUSAND) SUBCUT SCH (21:51)
[2018-03-26] MEDS: NS 0.9% 1000 ML* 1,000 ML IV SCH ×2 (02:07→12:44)
[2018-03-26] MEDS: cefTRIAXone(*) 1 GM in NS 0.9% 50 ML* 50 ML IVPB SCH (05:00)
[2018-03-26] MEDS ORDERED: hydrALAZINE IV* 20 MG/ML VIAL IV SLOW PU ONE (05:00)
[2018-03-26] MEDS ORDERED: hydrALAZINE IV* 20 MG/ML VIAL IV SLOW PU PRN (06:00)
[2018-03-26] MEDS ORDERED: Insulin LISPRO* 1 UNITS UNIT SUBCUT SCH ×2 (07:00→16:30)
[2018-03-26] MEDS: Tiotropium CAP.INH* CAP.INH/18 MCG (USE ORDER SET !) INH SCH (08:01)
[2018-03-26] MEDS ORDERED: Spiriva Inhaler DEVICE* 1 EACH DEVICE INH ONE (09:00)
[2018-03-26] MEDS: Heparin VIAL(*) 5000 UNITS/ML VIAL (FIVE THOUSAND) SUBCUT SCH ×2 (09:17→20:35)
[2018-03-26] MEDS: Fluticasone NASAL SPRAY 50MCG* 16 gm SPRAY BTL BOTH NARES SCH (09:25)
[2018-03-26] MEDS: amLODIPine TAB* 5 MG PO SCH (09:26)
[2018-03-26] MEDS: busPIRone TAB* 15 MG PO SCH ×2 (09:26→20:33)
[2018-03-26] MEDS: Citalopram TAB* 20 MG PO SCH (09:27)
--- NOTE | 2018-03-26 11:52 | PN ---
Subjective Date of Service: 03/26/18 Interval History: Patient's pain is 5/10 in right arm which is unchanged from yesterday. Patient has a cough which is non-productive and that she states has been going on for a few days. Patient has been urinating very frequently. Patient denies F/C, N/V, abdominal pain, diarrhea, CP, SOB. Patient states she has been getting dizzy on standing but has not had presyncope and states that it feels like when this happened on thursday and she fell. Family History: Unchanged from Admission Social History: Unchanged from Admission Past Medical History: Unchanged from Admission Objective Active Medications: Acetaminophen (Tylenol Tab*) 650 mg PO Q6H PRN PRN Reason: FEVER/PAIN Albuterol (Ventolin 2.5 Mg/3 Ml Neb.Zoya*) 2.5 mg INH Q4H PRN PRN Reason: SOB/WHEEZING Amlodipine Besylate (Norvasc Tab*) 10 mg PO DAILY [facility] Last Admin: 03/26/18 09:26 Dose: 10 mg Atorvastatin Calcium (Lipitor*) 40 mg PO QPM [facility] Last Admin: 03/25/18 16:51 Dose: 40 mg Buspirone HCl (Buspar Tab *) 7.5 mg PO BID [facility] Last Admin: 03/26/18 09:26 Dose: 7.5 mg Citalopram Hydrobromide (Celexa Tab*) 20 mg PO QAM [facility] Last Admin: 03/26/18 09:27 Dose: 20 mg Dextrose (D50w Syringe 50 Ml*) 12.5 gm IV PUSH .FOR FS < 60 - SS PRN PRN Reason: FS < 60 Last Admin: 03/25/18 16:59 Dose: 12.5 gm Fluticasone Propionate (Flonase Nasal [place] 50mcg*) 2 spray BOTH NARES DAILY [facility] Last Admin: 03/26/18 09:25 Dose: 2 spray Heparin Sodium (Porcine) (Heparin Vial(*)) 5,000 units SUBCUT Q12HR [facility] Last Admin: 03/26/18 09:17 Dose: 5,000 units Hydralazine HCl (Apresoline Iv*) 5 mg IV SLOW PU Q6H PRN PRN Reason: SYSTOLIC BP GREATER THAN: Hydralazine HCl (Apresoline Tab*) 10 mg PO TID [facility] Ceftriaxone Sodium 1 gm/ (Sodium Chloride) 50 mls @ 200 mls/hr IVPB Q24H ELIE Last Admin: 03/26/18 05:00 Dose: 200 mls/hr Sodium Chloride (Ns 0.9% 1000 Ml*) 1,000 mls @ 100 mls/hr IV PER RATE ELIE Stop: 03/29/18 03:41 Last Admin: 03/26/18 02:07 Dose: 100 mls/hr Insulin Human Lispro (Humalog*) 0 units SUBCUT Q4H [facility]; Protocol Nicotine (Nicotine Inhaler*) 10 mg INH Q2H PRN PRN Reason: CRAVING Ondansetron HCl (Zofran Inj*) 4 mg IV Q6H PRN PRN Reason: NAUSEA Oxycodone HCl (Roxycodone Tab*) 5 mg PO Q6H PRN PRN Reason: PAIN Last Admin: 03/25/18 16:51 Dose: 5 mg Polyvinyl Alcohol (Polyvinyl Alcohol 1.4% Opth*) 1 drop BOTH EYES Q2H PRN PRN Reason: DRY EYE Tiotropium [place] (Spiriva Cap.Inh*) 1 cap INH DAILY [facility] Last Admin: 03/26/18 08:01 Dose: 1 cap Vital Signs - 8 hr 03/26/18 03/26/18 03/26/18 03:53 08:00 08:01 Temperature 97.6 F 98.4 F Pulse Rate 95 96 Respiratory 16 20 20 Rate Blood Pressure 181/58 180/41 (mmHg) O2 Sat by Pulse 97 97 Oximetry 03/26/18 11:19 Temperature 97.8 F Pulse Rate 90 Respiratory 16 Rate Blood Pressure 175/48 (mmHg) O2 Sat by Pulse 97 Oximetry Oxygen Devices in Use Now: Nasal Cannula Appearance: Patient is a 72yo female who appears stated age and is sitting in the bed in [facility]. Eyes: No Scleral Icterus, PERRLA Ears/Nose/Mouth/Throat: Clear Oropharnyx, Mucous Membranes Moist, - - Dry, Cracked Lips Respiratory: Symmetrical Chest Expansion and Respiratory Effort, - - Rhonchi in the lower and middle lobes of the right lung. Cardiovascular: NL Sounds; No Murmurs; No JVD, RRR, No Edema Abdominal: NL Sounds; No Tenderness; No Distention, No Hepatosplenomegaly Lymphatic: No Cervical Adenopathy Extremities: No Edema, No Clubbing, Cyanosis Skin: No Rash or Ulcers, No Nodules or Sclerosis Neurological: Alert and Oriented x 3, NL Sensation, NL Muscle Strength and Tone , - - Birmingham's palsy unchanged. Result Diagrams: 03/25/18 13:15 03/25/18 19:14 Microbiology and Other Data: Microbiology 03/25/18 13:40 Urine Culture - Preliminary Urine Escherichia Coli Assess/Plan/Problems-Billing Assessment: Patient is a 72yo female with a PMH for COPD, DM II, HTN, and recent fall with humerus fracture who presents with ARF and hypoglycemia likely from the use of ARB and NSAIDs in conjunction and subsequent accumulation of Sulfonylurea. Patient's renal failure and hypoglycemia are improving. - Patient Problems (1) Renal failure Current Visit: Yes Status: Acute Comment: - Due to combination of ARB and NSAID use. - Cret trending down from 3.60, recheck pending today - Continue fluids, Start Hydralazine - Renally dose medications - Obtain old records for previous Cret. (2) Hypoglycemia secondary to sulfonylurea Current Visit: No Status: Acute Code(s): T38.3X1A - POISONING BY INSULIN AND ORAL HYPOGLYCEMIC DRUGS, ACC, INIT; E16.0 - DRUG-INDUCED HYPOGLYCEMIA WITHOUT COMA SNOMED Code(s): 899575867 Comment: - Severe hypoglycemia, recurrent - Recently restarted on Glipizide - Improved, now with hyperglycemia - Stop D10 and Octreotide - FS Q4H with SSI insulin - Will need different outpatient oral antihyperglycemic treatment. (3) Fracture, humerus Current Visit: Yes Status: Acute Code(s): S42.309A - UNSP FRACTURE OF SHAFT OF HUMERUS, UNSP ARM, INIT SNOMED Code(s): 71092248 Comment: - Stable, continue sling and pain control - Follow up with Orthopedics outpatient next week if not still inpatient. (4) COPD (chronic obstructive pulmonary disease) Current Visit: No Status: Acute Code(s): J44.9 - CHRONIC OBSTRUCTIVE PULMONARY DISEASE, UNSPECIFIED SNOMED Code(s): 16912243 Comment: - Nebulizers as needed - Continue Spiriva - Cough, Rhonchi, No other signs of exacerbation - Repeat CXR to assess for Pneumonia (5) Hyperlipidemia Current Visit: No Status: Acute Code(s): E78.5 - HYPERLIPIDEMIA, UNSPECIFIED SNOMED Code(s): 82920504 Comment: - Continue lipitor (6) Hypertension Current Visit: No Status: Acute Code(s): I10 - ESSENTIAL (PRIMARY) HYPERTENSION SNOMED Code(s): 06454922 Comment: - Hypertensive - Continue Amlodipine - Start Hydralazine TID - Hold Losartan - Dizziness on standing, recheck orthostatics. (7) Tobacco abuse Current Visit: No Status: Acute Code(s): Z72.0 - TOBACCO USE SNOMED Code(s ): 702373887 Comment: - Nicotine Inhaler PRN (8) DVT prophylaxis Current Visit: No Status: Acute Code(s): JLU2797 - SNOMED Code(s): 925361092 Comment: - HSQ Q12H Status and Disposition: Inpatient for close monitoring of renal function and blood glucose.
[2018-03-26 12:34] LABS: Hematocrit 34 % (35-47); Hemoglobin 11.3 g/dl (12.0-16.0); Mean Corpuscular HGB Conc 33 g/dl (31-36); Mean Corpuscular Hemoglobin 26 pg (27-31); Mean Corpuscular Volume 78 fL (80-97); Mean Platelet Volume 8.6 fL (7.4-10.4); Platelet Count 203 10^3/ul (150-450); Red Blood Count 4.38 10^6/ul (4.00-5.40); Red Cell Distribution Width 27 % (10.5-15); White Blood Count 7.7 10^3/ul (3.5-10.8)
[2018-03-26] MEDS: Insulin LISPRO* 1 UNITS UNIT SUBCUT SCH ×3 (12:44→20:32)
[2018-03-26 12:45] LABS: EGFR Non-African American 27.7 (>60)
[2018-03-26 12:56] LABS: ABS Basophils 0 10^3/ul (0-0.2); ABS Eosinophils 0 10^3/ul (0-0.6); ABS Lymphocytes 0.9 10^3/ul (1.0-4.8); ABS Monocytes 0.4 10^3/ul (0-0.8); ABS Neutrophils 6.4 10^3/ul (1.5-7.7); ABS Nucleated RBC 0 10^3/ul; Eosinophil % 0.1 % (0-6); Lymphocyte % 11.5 % (25-47); Nucleated Red Blood Cells % 0.1
[2018-03-26] MEDS: hydrALAZINE TAB* 10 MG PO SCH ×2 (14:18→20:35)
--- NOTE | 2018-03-26 15:52 | ECHO ---
Patient: TITUS SANTA [facility] Rec#: [id number] : 1945 Date: 03/26/2018 Age: 72y Height: 160 cm / 63.0 in Weight: 56.7 kg / 125.0 lbs Sex: F BSA: 1.58 Room#: [facility] Admit Date#: 03/25/2018 Type: Inpatient Referring: Roderick Matthews Reading: Whitley Jay MD Ict Support Engineer: Kristel Willson RDCS CC: Yamilet Winn MD Transthoracic Echocardiogram Indication: Syncope BP: 181/58 HR: 63 Rhythm: NSR Findings History: HTN, HLD, COPD, CVA, DM, smoker. Technical Comments: The study was technically limited due to the patient's inability to lay in the left lateral decubitus position. Completed at 1420. Left Ventricle: The left ventricular chamber size is decreased. Mild concentric left ventricular hypertrophy is observed. There is a prominent septal knuckle. Global left ventricular wall motion and contractility are within normal limits. There is normal left ventricular systolic function. The estimated ejection fraction is 60-65%. Abnormal left ventricular diastolic filling is observed, consistent with impaired relaxation. The left ventricular diastolic filling pattern is consistent with elevated left ventricular end-diastolic pressure. Left Atrium: The left atrium is mildly dilated. Right Ventricle: Moderator Band present. The right ventricular cavity size is normal. The right ventricular global systolic function is normal. Right Atrium: The right atrial cavity size is normal. Aortic Valve: The aortic valve is trileaflet. The aortic valve leaflets are mildly thickened. There is aortic annular calcification. There is no evidence of aortic regurgitation. There is no evidence of aortic stenosis. Mitral Valve: There is mitral annular calcification. The mitral valve leaflets are mildly thickened. There is trace to mild mitral regurgitation. There is mild mitral stenosis. The mean gradient across the mitral valve is 4 mmHg. The peak gradient across the mitral valve is 9 mmHg. The pressure half time of the mitral valve is 73 msec. The mitral valve area, by pressure half time, is calculated at 3 cm2. Tricuspid Valve: The tricuspid valve leaflets are normal. There is trace tricuspid regurgitation. Unable to estimate the right ventricular systolic pressure. There is no tricuspid stenosis. Pulmonic Valve: The pulmonic valve appears normal. There is a trace pulmonic regurgitation. There is no pulmonic stenosis. Pericardium: There is no significant pericardial effusion. A pericardial fat pad is visualized. Aorta: There is no dilatation of the ascending aorta. The aortic arch is not well visualized. The aortic root is normal in size. Pulmonary Artery: The main pulmonary artery is not well visualized. Venous: The inferior vena cava appears normal in size. There is a greater than 50% respiratory change in the inferior vena cava dimension. Conclusions The left ventricular chamber size is decreased. Mild concentric left ventricular hypertrophy is observed. Global left ventricular wall motion and contractility are within normal limits. LVEF 65%. Evidence of mild left ventricular outflow tract obstruction with dagger shaped profiles. Abnormal left ventricular diastolic filling is observed, consistent with impaired relaxation. The right ventricular global systolic function is normal. The aortic valve is trileaflet, the leaflets are mildly thickened with normal function. There is mitral annular calcification and the mitral valve leaflets are mildly thickened. There is trace to mild mitral regurgitation. There is mild mitral stenosis: -The mean gradient across the mitral valve is 4 mmHg. -The mitral valve area, by pressure half time, is calculated at 3 cm2. There is trace tricuspid regurgitation. Compared with prior echo of 11/09/16, small LV chamber size noted and ventricular function stable, valve function is stable. Dagger shaped LVOT profiles newly noted. Measurements Name Value Normal Range RVIDd (AP) 2D 3 cm (0.9 - 2.6) RVDdMajor (2D) 4.1 cm (2.2 - 4.4) RAd ISD 4CH 4.3 cm (3.4 - 4.9) RA (A4C)W 3.4 cm (2.9 - 4.6) IVSd (2D) 1.2 cm (0.6 - 1) LVPWd (2D) 1.2 cm (0.6 - 1) LVIDd (2D) 3.5 cm (3.6 - 5.4) LVIDs (2D) 2.1 cm - LV FS (2D) 39 % (25 - 45) Aortic Annulus 1.6 cm (1.4 - 2.6) Ao root diameter (2D) 2.9 cm (2.1 - 3.5) Ascending Ao 3 cm (2.1 - 3.4) LA dimension (AP) 2D 3.8 cm (2.3 - 3.8) LAd ISD 4CH 4.3 cm (2.9 - 5.3) LA ISD 4CH W 3.9 cm (2.5 - 4.5) Name Value Normal Range LA ESV BP (A/L) index 32 ml/m2 - Name Value Normal Range MV E-wave Vmax 1 m/sec - MV deceleration time 335 msec - MV A-wave Vmax 1.5 m/sec - MV E:A ratio 0.7 ratio - LV septal e' Vmax 0.05 m/sec - LV lateral e' Vmax 0.09 m/sec - LV E:e' septal ratio 20 ratio - LV E:e' lateral ratio 11.11 ratio - Name Value Normal Range AV Vmax 1.5 m/sec - AV VTI 29.9 cm - AV peak gradient 9 mmHg - AV mean gradient 5 mmHg - LVOT diameter 1.9 cm - LVOT Vmax 1 m/sec - LVOT VTI 25.4 cm - LVOT peak gradient 4 mmHg - LVOT mean gradient 2 mmHg - RAYSHAWN Vmax 0.8 m/sec - Name Value Normal Range MV Vmax 1.5 m/sec - MV VTI 36 cm - MV peak gradient 9 mmHg - MV mean gradient 4 mmHg - MV PHT 73 msec - MVA (PHT) 3 cm2 - MVA (continuity VTI) 2.4 cm2 - Name Value Normal Range IVC diameter 1.6 cm - Name Value Normal Range PV Vmax 1.2 m/sec - PV peak gradient 6 mmHg -
[2018-03-26] MEDS ORDERED: Magnesium Sulfate IV* 3 GM in NS 0.9% 100 ML* 100 ML IVPB ONE (16:00)
[2018-03-26] MEDS: Atorvastatin* 40 MG TAB PO SCH (17:01)
[2018-03-26] MEDS: guaiFENesin ER TAB 600 MG PO SCH (20:35)
[2018-03-27] MEDS: Acetaminophen TAB* 325 MG PO PRN (02:05)
[2018-03-27] MEDS: oxyCODONE TAB* 5 MG TAB PO PRN ×2 (03:59→16:29)
[2018-03-27] MEDS: cefTRIAXone(*) 1 GM in NS 0.9% 50 ML* 50 ML IVPB SCH (03:59)
[2018-03-27] MEDS: Insulin LISPRO* 1 UNITS UNIT SUBCUT SCH ×6 (04:23→21:41)
[2018-03-27] MEDS: NS 0.9% 1000 ML* 1,000 ML IV SCH (06:03)
[2018-03-27] MEDS: Tiotropium CAP.INH* CAP.INH/18 MCG (USE ORDER SET !) INH SCH (07:35)
[2018-03-27] MEDS: busPIRone TAB* 15 MG PO SCH ×2 (08:16→22:23)
[2018-03-27] MEDS: hydrALAZINE TAB* 10 MG PO SCH ×3 (08:16→21:47)
[2018-03-27] MEDS: amLODIPine TAB* 5 MG PO SCH (08:16)
[2018-03-27] MEDS: Citalopram TAB* 20 MG PO SCH (08:16)
[2018-03-27] MEDS: Fluticasone NASAL SPRAY 50MCG* 16 gm SPRAY BTL BOTH NARES SCH (08:17)
[2018-03-27] MEDS: Heparin VIAL(*) 5000 UNITS/ML VIAL (FIVE THOUSAND) SUBCUT SCH ×2 (08:17→21:47)
[2018-03-27] MEDS: guaiFENesin ER TAB 600 MG PO SCH ×2 (08:17→21:47)
[2018-03-27 10:14] LABS: EGFR Non-African American 42.9 (>60)
[2018-03-27] MEDS ORDERED: NS 0.9% 1000 ML* 1,000 ML IV SCH ×2 (13:30→20:24)
[2018-03-27] MEDS ORDERED: hydrALAZINE TAB* 10 MG PO SCH ×2 (14:00)
--- NOTE | 2018-03-27 15:32 | PN ---
Subjective Date of Service: 03/27/18 Interval History: Ms. Molina feels better today. She continues to have some dizziness, but feels as though it has improved since yesterday. She denies headaches. Her left arm remains in a sling. She continues to have mild, aching pain in the arm which is well-managed by current medications. Urinating frequently. She denies CP, SOB, N /V/D, syncope. Family History: Unchanged from Admission Social History: Unchanged from Admission Past Medical History: Unchanged from Admission Objective Active Medications: Acetaminophen (Tylenol Tab*) 650 mg PO Q6H PRN FEVER/PAIN Albuterol (Ventolin 2.5 Mg/3 Ml Neb.Zoya*) 2.5 mg INH Q4H PRN SOB/WHEEZING Amlodipine Besylate (Norvasc Tab*) 10 mg PO DAILY [facility] Atorvastatin Calcium (Lipitor*) 40 mg PO QPM ELIE Buspirone HCl (Buspar Tab *) 7.5 mg PO BID ELIE Citalopram Hydrobromide (Celexa Tab*) 20 mg PO QAM [facility] Dextrose (D50w Syringe 50 Ml*) 12.5 gm IV PUSH .FOR FS < 60 - SS PRN FS < 60 Fluticasone Propionate (Flonase Nasal [place] 50mcg*) 2 spray BOTH NARES DAILY [facility] Guaifenesin (Mucinex*) 1,200 mg PO BID [facility] Heparin Sodium (Porcine) (Heparin Vial(*)) 5,000 units SUBCUT Q12HR ELIE Hydralazine HCl (Apresoline Iv*) 10 mg IV SLOW PU Q6H PRN SYSTOLIC BP GREATER THAN: 170 Hydralazine HCl (Apresoline Tab*) 20 mg PO TID [facility] Ceftriaxone Sodium 1 gm/ (Sodium Chloride) 50 mls @ 200 mls/hr IVPB Q24H ELIE Sodium Chloride (Ns 0.9% 1000 Ml*) 1,000 mls @ 100 mls/hr IV PER RATE ELIE Sodium Chloride (Ns 0.9% 1000 Ml*) 1,000 mls @ 100 mls/hr IV PER RATE ELIE Insulin Human Lispro (Humalog*) 0 units SUBCUT Q6H ELIE; Protocol Nicotine (Nicotine Inhaler*) 10 mg INH Q2H PRN CRAVING Ondansetron HCl (Zofran Inj*) 4 mg IV Q6H PRN NAUSEA Oxycodone HCl (Roxycodone Tab*) 5 mg PO Q6H PRN PAIN Polyvinyl Alcohol (Polyvinyl Alcohol 1.4% Opth*) 1 drop BOTH EYES Q2H PRN DRY EYE Tiotropium [place] (Spiriva Cap.Inh*) 1 cap INH DAILY ELIE Vital Signs - 8 hr 03/27/18 03/27/18 07:29 11:51 Temperature 97.5 F 98.8 F Pulse Rate 85 93 Respiratory 16 16 Rate Blood Pressure 179/53 177/43 (mmHg) O2 Sat by Pulse 96 93 Oximetry Oxygen Devices in Use Now: Nasal Cannula - 2L Appearance: Elderly woman laying in bed in NAD Eyes: No Scleral Icterus Ears/Nose/Mouth/Throat: Mucous Membranes Moist Neck: NL Appearance and Movements; NL JVP, Trachea Midline Respiratory: Symmetrical Chest Expansion and Respiratory Effort, Clear to Auscultation Cardiovascular: NL Sounds; No Murmurs; No JVD, RRR Abdominal: NL Sounds; No Tenderness; No Distention Extremities: No Edema Skin: No Rash or Ulcers Neurological: Alert and Oriented x 3 Lines/Tubes/Other Access: Clean, Dry and Intact Peripheral IV Nutrition: Taking PO's Result Diagrams: 03/26/18 12:23 03/27/18 09:40 Assess/Plan/Problems-Billing Assessment: Patient is a 72yo female with a PMH for COPD, DM II, HTN, and recent fall with humerus fracture who presents with ARF and hypoglycemia likely from the use of ARB and NSAIDs in conjunction and subsequent accumulation of Sulfonylurea. Patient's renal failure and hypoglycemia are improving. - Patient Problems (1) Renal failure Current Visit: Yes Status: Acute Comment: - Due to combination of ARB and NSAID use - Creatinine 3.60 on admission, now down to 1.23; continue to trend - Awaiting old records - Renally dose medications - Continue IVF (2) Hypoglycemia secondary to sulfonylurea Current Visit: No Status: Acute Code(s): T38.3X1A - POISONING BY INSULIN AND ORAL HYPOGLYCEMIC DRUGS, ACC, INIT; E16.0 - DRUG-INDUCED HYPOGLYCEMIA WITHOUT COMA SNOMED Code(s): 752700291 Comment: - Severe hypoglycemia, recurrent - Recently restarted on glipizide - Improved, glucose now well controlled - FS Q6H with SSI insulin - Will need different outpatient oral antihyperglycemic treatment (3) Diabetes mellitus, type 2 Current Visit: Yes Status: Acute Comment: - Stop glipizide; cannot resume at d/c - Hold metformin; can resume at d/c (4) Fracture, humerus Current Visit: Yes Status: Acute Code(s): S42.309A - UNSP FRACTURE OF SHAFT OF HUMERUS, UNSP ARM, INIT SNOMED Code(s): 38191331 Comment: - Stable, continue sling and pain control - Follow up with Orthopedics outpatient next week (5) Hypertension Current Visit: No Status: Acute Code(s): I10 - ESSENTIAL (PRIMARY) HYPERTENSION SNOMED Code(s): 23242041 Comment: - Still significantly hypertensive - Dizziness improving - Hold losartan d/t renal function - Continue amlodipine - Increase PO hydralazine to 20mg TID; hydralazine IV PRN for SBP >170 (6) COPD (chronic obstructive pulmonary disease) Current Visit: No Status: Acute Code(s): J44.9 - CHRONIC OBSTRUCTIVE PULMONARY DISEASE, UNSPECIFIED SNOMED Code(s): 10898872 Comment: - No signs of exacerbation or pneumonia - Continue Spiriva, nebs (7) Hyperlipidemia Current Visit: No Status: Acute Code(s): E78.5 - HYPERLIPIDEMIA, UNSPECIFIED SNOMED Code(s): 39276476 Comment: - Continue lipitor (8) Tobacco abuse Current Visit: No Status: Acute Code(s): Z72.0 - TOBACCO USE SNOMED Code(s ): 579269698 Comment: - Nicotine Inhaler PRN (9) DVT prophylaxis Current Visit: No Status: Acute Code(s): AZX4489 - SNOMED Code(s): 472979288 Comment: - Heparin SQ (10) DNR (do not resuscitate) Current Visit: Yes Status: Acute Status and Disposition: Inpatient for close monitoring of renal function and blood glucose. Anticipate d /c home when medically stable, possible tomorrow.
[2018-03-27] MEDS: Atorvastatin* 40 MG TAB PO SCH (17:20)
[2018-03-28] MEDS: Insulin LISPRO* 1 UNITS UNIT SUBCUT SCH ×4 (02:00→21:14)
[2018-03-28] MEDS: hydrALAZINE IV* 20 MG/ML VIAL IV SLOW PU PRN (03:52)
[2018-03-28] MEDS: cefTRIAXone(*) 1 GM in NS 0.9% 50 ML* 50 ML IVPB SCH (05:30)
[2018-03-28 05:54] LABS: EGFR Non-African American 52.7 (>60)
[2018-03-28] MEDS: Tiotropium CAP.INH* CAP.INH/18 MCG (USE ORDER SET !) INH SCH ×2 (06:58→07:19)
[2018-03-28] MEDS ORDERED: KCL 20 MEQ/100 ML IVPREMIX* 20 MEQ/100 ML BAG IV ONE (07:16)
[2018-03-28] MEDS ORDERED: Potassium Chlor TAB* 20 MEQ TAB.ER PO ONE (07:16)
[2018-03-28] MEDS: hydrALAZINE TAB* 10 MG PO SCH ×3 (08:28→21:12)
[2018-03-28] MEDS: Citalopram TAB* 20 MG PO SCH (08:28)
[2018-03-28] MEDS: guaiFENesin ER TAB 600 MG PO SCH ×2 (08:28→21:13)
[2018-03-28] MEDS: busPIRone TAB* 15 MG PO SCH ×2 (08:28→21:17)
[2018-03-28] MEDS: amLODIPine TAB* 5 MG PO SCH (08:28)
[2018-03-28] MEDS: Fluticasone NASAL SPRAY 50MCG* 16 gm SPRAY BTL BOTH NARES SCH (08:30)
[2018-03-28] MEDS: Heparin VIAL(*) 5000 UNITS/ML VIAL (FIVE THOUSAND) SUBCUT SCH ×2 (08:32→21:14)
[2018-03-28] MEDS: Metoprolol Tartrate TAB* 25 MG PO SCH ×2 (12:00→21:13)
[2018-03-28] MEDS: oxyCODONE TAB* 5 MG TAB PO PRN ×2 (12:00→21:17)
--- NOTE | 2018-03-28 16:40 | PN ---
Subjective Date of Service: 03/28/18 Interval History: Ms. Molian is feeling better today. She is still having LUE pain with movement. Her arm is still in the sling, but there has been difficulty keeping the sling in the correct position. Her dizziness has improved. She has not been OOB today and reports that she lives at home with her granddaughter. She is alone during the night when her granddaughter is working. She denies CP, SOB, N/ V/D. Family History: Unchanged from Admission Social History: Unchanged from Admission Past Medical History: Unchanged from Admission Objective Active Medications: Acetaminophen (Tylenol Tab*) 650 mg PO Q6H PRN FEVER/PAIN Albuterol (Ventolin 2.5 Mg/3 Ml Neb.Zoya*) 2.5 mg INH Q4H PRN SOB/WHEEZING Amlodipine Besylate (Norvasc Tab*) 10 mg PO DAILY [facility] Atorvastatin Calcium (Lipitor*) 40 mg PO QPM ELIE Buspirone HCl (Buspar Tab *) 7.5 mg PO BID ELIE Citalopram Hydrobromide (Celexa Tab*) 20 mg PO QAM [facility] Dextrose (D50w Syringe 50 Ml*) 12.5 gm IV PUSH .FOR FS < 60 - SS PRN FS < 60 Fluticasone Propionate (Flonase Nasal [place] 50mcg*) 2 spray BOTH NARES DAILY [facility] Guaifenesin (Mucinex*) 1,200 mg PO BID [facility] Heparin Sodium (Porcine) (Heparin Vial(*)) 5,000 units SUBCUT Q12HR ELIE Hydralazine HCl (Apresoline Iv*) 10 mg IV SLOW PU Q6H PRN SYSTOLIC BP GREATER THAN: Hydralazine HCl (Apresoline Tab*) 20 mg PO TID [facility] Ceftriaxone Sodium 1 gm/ (Sodium Chloride) 50 mls @ 200 mls/hr IVPB Q24H ELIE Insulin Human Lispro (Humalog*) 0 units SUBCUT Q6H ELIE; Protocol Metoprolol Tartrate (Lopressor Tab*) 25 mg PO BID ELIE Nicotine (Nicotine Inhaler*) 10 mg INH Q2H PRN CRAVING Ondansetron HCl (Zofran Inj*) 4 mg IV Q6H PRN NAUSEA Oxycodone HCl (Roxycodone Tab*) 5 mg PO Q6H PRN PAIN Polyvinyl Alcohol (Polyvinyl Alcohol 1.4% Opth*) 1 drop BOTH EYES Q2H PRN DRY EYE Tiotropium [place] (Spiriva Cap.Inh*) 1 cap INH DAILY ELIE Vital Signs - 8 hr 03/28/18 03/28/18 03/28/18 08:42 11:14 11:15 Temperature 98.0 F Pulse Rate 97 Respiratory 20 20 Rate Blood Pressure 145/35 140/68 (mmHg) O2 Sat by Pulse 94 Oximetry Oxygen Devices in Use Now: Nasal Cannula - 1L Appearance: Elderly woman laying in bed in NAD Eyes: No Scleral Icterus Ears/Nose/Mouth/Throat: Mucous Membranes Moist Neck: NL Appearance and Movements; NL JVP, Trachea Midline Respiratory: Symmetrical Chest Expansion and Respiratory Effort, Clear to Auscultation Cardiovascular: NL Sounds; No Murmurs; No JVD, RRR Abdominal: NL Sounds; No Tenderness; No Distention Extremities: No Edema Skin: No Rash or Ulcers Neurological: Alert and Oriented x 3, NL Sensation Lines/Tubes/Other Access: Clean, Dry and Intact Peripheral IV Nutrition: Taking PO's Result Diagrams: 03/26/18 12:23 03/28/18 05:20 Assess/Plan/Problems-Billing Assessment: Patient is a 72yo female with a PMH for COPD, DM II, HTN, and recent fall with humerus fracture who presents with ARF and hypoglycemia likely from the use of ARB and NSAIDs in conjunction and subsequent accumulation of Sulfonylurea. Patient's renal failure and hypoglycemia are improving. - Patient Problems (1) Renal failure Current Visit: Yes Status: Acute Comment: - Due to combination of ARB and NSAID use - Creatinine 3.60 on admission, now down to 1.03; continue to trend - Awaiting old records - Renally dose medications - Stop IVF (2) Hypoglycemia secondary to sulfonylurea Current Visit: No Status: Acute Code(s): T38.3X1A - POISONING BY INSULIN AND ORAL HYPOGLYCEMIC DRUGS, ACC, INIT; E16.0 - DRUG-INDUCED HYPOGLYCEMIA WITHOUT COMA SNOMED Code(s): 562379787 Comment: - Severe hypoglycemia, recurrent - Recently restarted on glipizide - Improved, glucose now well controlled - Continue lispro SS (change to ACHS) - Will need different outpatient oral antihyperglycemic treatment (3) E. coli UTI (urinary tract infection) Current Visit: Yes Status: Acute Code(s): N39.0 - URINARY TRACT INFECTION, SITE NOT SPECIFIED; B96.20 - UNSP ESCHERICHIA COLI THE CAUSE OF DISEASES CLASSD [facility] SNOMED Code(s): 952256725 Comment: - Noted on urine culture on 03/25 - Continue ceftriaxone (day 4) (4) Dizziness Current Visit: Yes Status: Acute Code(s): R42 - DIZZINESS AND GIDDINESS SNOMED Code(s): 314483645 Comment: - Likely 2/2 hypertension as it is improving with decreasing BP - PT will need to see again before d/c as it is unclear if she is safe to return home (5) Fracture, humerus Current Visit: Yes Status: Acute Code(s): S42.309A - UNSP FRACTURE OF SHAFT OF HUMERUS, UNSP ARM, INIT SNOMED Code(s): 98945754 Comment: - Stable, continue sling and pain control - Follow up with Orthopedics outpatient this week (6) Diabetes mellitus, type 2 Current Visit: Yes Status: Acute Comment: - Stop glipizide; cannot resume at d/c - Hold metformin; can resume at d/c at lower dosing, likely 500mg BID (7) Hypertension Current Visit: No Status: Acute Code(s): I10 - ESSENTIAL (PRIMARY) HYPERTENSION SNOMED Code(s): 58663838 Comment: - Still hypertensive - Hold losartan d/t renal function - Continue amlodipine - Continue hydralazine to 20mg TID; hydralazine IV for SBP >170 - Add metoprolol (8) COPD (chronic obstructive pulmonary disease) Current Visit: No Status: Acute Code(s): J44.9 - CHRONIC OBSTRUCTIVE PULMONARY DISEASE, UNSPECIFIED SNOMED Code(s): 89686826 Comment: - No signs of exacerbation or pneumonia - Continue Spiriva, nebs (9) Hyperlipidemia Current Visit: No Status: Acute Code(s): E78.5 - HYPERLIPIDEMIA, UNSPECIFIED SNOMED Code(s): 79795769 Comment: - Continue lipitor (10) Tobacco abuse Current Visit: No Status: Acute Code(s): Z72.0 - TOBACCO USE SNOMED Code(s ): 799757343 Comment: - Nicotine Inhaler PRN (11) DVT prophylaxis Current Visit: No Status: Acute Code(s): QDN5793 - SNOMED Code(s): 311087517 Comment: - Heparin SQ (12) DNR (do not resuscitate) Current Visit: Yes Status: Acute Status and Disposition: Inpatient for close monitoring of renal function and blood glucose. It is unclear if she is safe to return home d/t unsteady gait and dizziness. PT will need to see again before a d/c plan can be made.
[2018-03-28] MEDS: Atorvastatin* 40 MG TAB PO SCH (17:25)
[2018-03-28] MEDS: Acetaminophen TAB* 325 MG PO PRN (17:25)
[2018-03-29] MEDS: hydrALAZINE IV* 20 MG/ML VIAL IV SLOW PU PRN (04:33)
[2018-03-29] MEDS: cefTRIAXone(*) 1 GM in NS 0.9% 50 ML* 50 ML IVPB SCH (04:33)
[2018-03-29 06:58] LABS: EGFR Non-African American 52.7 (>60)
[2018-03-29] MEDS: Insulin LISPRO* 1 UNITS UNIT SUBCUT SCH ×4 (07:54→21:25)
[2018-03-29] MEDS: Tiotropium CAP.INH* CAP.INH/18 MCG (USE ORDER SET !) INH SCH (08:34)
[2018-03-29] MEDS: hydrALAZINE TAB* 10 MG PO SCH ×3 (08:54→21:33)
[2018-03-29] MEDS: Fluticasone NASAL SPRAY 50MCG* 16 gm SPRAY BTL BOTH NARES SCH (08:54)
[2018-03-29] MEDS: guaiFENesin ER TAB 600 MG PO SCH ×2 (08:55→21:23)
[2018-03-29] MEDS: Citalopram TAB* 20 MG PO SCH (08:55)
[2018-03-29] MEDS: Metoprolol Tartrate TAB* 25 MG PO SCH ×2 (08:56→21:34)
[2018-03-29] MEDS: amLODIPine TAB* 5 MG PO SCH (08:57)
[2018-03-29] MEDS: busPIRone TAB* 15 MG PO SCH ×2 (08:59→21:23)
[2018-03-29] MEDS: Heparin VIAL(*) 5000 UNITS/ML VIAL (FIVE THOUSAND) SUBCUT SCH ×2 (09:00→21:24)
[2018-03-29] MEDS ORDERED: Metoprolol Tartrate TAB* 25 MG PO ONE (10:28)
--- NOTE | 2018-03-29 16:35 | PN ---
Subjective Date of Service: 03/29/18 Interval History: Ms. Molina feels well this morning and offers no complaints. She continues to have dizziness when standing, she feels as though this is improved from admission, though not necessarily improved in the last 2 days. She is agreeable to MOY and understands that she is at a high risk of fall d/t her dizziness and fractured arm. She denies CP, SOB, N/V/D. Not up ambulating much. Family History: Unchanged from Admission Social History: Unchanged from Admission Past Medical History: Unchanged from Admission Objective Active Medications: Acetaminophen (Tylenol Tab*) 650 mg PO Q6H PRN FEVER/PAIN Albuterol (Ventolin 2.5 Mg/3 Ml Neb.Zoya*) 2.5 mg INH Q4H PRN SOB/WHEEZING Amlodipine Besylate (Norvasc Tab*) 10 mg PO DAILY [facility] Atorvastatin Calcium (Lipitor*) 40 mg PO QPM ELIE Buspirone HCl (Buspar Tab *) 7.5 mg PO BID ELIE Citalopram Hydrobromide (Celexa Tab*) 20 mg PO QAM ELIE Dextrose (D50w Syringe 50 Ml*) 12.5 gm IV PUSH .FOR FS < 60 - SS PRN FS < 60 Fluticasone Propionate (Flonase Nasal [employer] 50mcg*) 2 spray BOTH NARES DAILY [facility] Guaifenesin (Mucinex*) 1,200 mg PO BID [facility] Heparin Sodium (Porcine) (Heparin Vial(*)) 5,000 units SUBCUT Q12HR ELIE Hydralazine HCl (Apresoline Iv*) 10 mg IV SLOW PU Q6H PRN SYSTOLIC BP GREATER THAN:180 Hydralazine HCl (Apresoline Tab*) 20 mg PO TID ELIE Ceftriaxone Sodium 1 gm/ (Sodium Chloride) 50 mls @ 200 mls/hr IVPB Q24H ELIE Insulin Human Lispro (Humalog*) 0 units SUBCUT ACHS ELIE; Protocol Metoprolol Tartrate (Lopressor Tab*) 25 mg PO BID ELIE Nicotine (Nicotine Inhaler*) 10 mg INH Q2H PRN CRAVING Ondansetron HCl (Zofran Inj*) 4 mg IV Q6H PRN NAUSEA Oxycodone HCl (Roxycodone Tab*) 5 mg PO Q6H PRN PAIN Polyvinyl Alcohol (Polyvinyl Alcohol 1.4% Opth*) 1 drop BOTH EYES Q2H PRN DRY EYE Tiotropium [place] (Spiriva Cap.Inh*) 1 cap INH DAILY ELIE Vital Signs - 8 hr 03/29/18 03/29/18 03/29/18 08:36 08:52 11:26 Temperature 98.5 F 97.5 F Pulse Rate 86 87 59 Respiratory 18 17 20 Rate Blood Pressure 164/35 121/32 (mmHg) O2 Sat by Pulse 91 91 93 Oximetry 03/29/18 03/29/18 13:22 15:17 Temperature 97.6 F Pulse Rate 64 Respiratory 16 Rate Blood Pressure 121/28 150/38 (mmHg) O2 Sat by Pulse 94 Oximetry Oxygen Devices in Use Now: Nasal Cannula - 1 Appearance: Elderly woman laying in bed in NAD Eyes: No Scleral Icterus Ears/Nose/Mouth/Throat: Mucous Membranes Moist Neck: NL Appearance and Movements; NL JVP, Trachea Midline Respiratory: Symmetrical Chest Expansion and Respiratory Effort, Clear to Auscultation Cardiovascular: NL Sounds; No Murmurs; No JVD, RRR Abdominal: NL Sounds; No Tenderness; No Distention Extremities: No Edema Skin: No Rash or Ulcers Neurological: Alert and Oriented x 3, NL Sensation Lines/Tubes/Other Access: Clean, Dry and Intact Peripheral IV Nutrition: Taking PO's Result Diagrams: 03/26/18 12:23 03/29/18 06:01 Assess/Plan/Problems-Billing Assessment: Patient is a 72yo female with a PMH for COPD, DM II, HTN, and recent fall with humerus fracture who presents with ARF and hypoglycemia likely from the use of ARB and NSAIDs in conjunction and subsequent accumulation of Sulfonylurea. Patient's renal failure and hypoglycemia are improving. - Patient Problems (1) Renal failure Current Visit: Yes Status: Acute Comment: - Due to combination of ARB and NSAID use - Creatinine 3.60 on admission, now down to 1.03; continue to trend - Still awaiting old records - Renally dose medications (2) Hypoglycemia secondary to sulfonylurea Current Visit: No Status: Acute Code(s): T38.3X1A - POISONING BY INSULIN AND ORAL HYPOGLYCEMIC DRUGS, ACC, INIT; E16.0 - DRUG-INDUCED HYPOGLYCEMIA WITHOUT COMA SNOMED Code(s): 818259559 Comment: - Severe hypoglycemia, recurrent episodes - Recently restarted on glipizide; cannot resume at d/c - Improved, glucose now well controlled - Continue lispro SS (3) E. coli UTI (urinary tract infection) Current Visit: Yes Status: Acute Code(s): N39.0 - URINARY TRACT INFECTION, SITE NOT SPECIFIED; B96.20 - UNSP ESCHERICHIA COLI [facility] SNOM[facility] Code(s): 377485449 Comment: - Noted on urine culture on 03/25 - Continue ceftriaxone (day 5) (4) Dizziness Current Visit: Yes Status: Acute Code(s): R42 - DIZZINESS AND GIDDINESS SNOMED Code(s): 797894314 Comment: - Likely 2/2 hypertension as it has improved with decreasing BP - PT recommends MOY (5) Fracture, humerus Current Visit: Yes Status: Acute Code(s): S42.309A - UNSP FRACTURE OF SHAFT OF HUMERUS, UNSP ARM, INIT SNOMED Code(s): 05132813 Comment: - Stable, continue sling and pain control - Follow up with Orthopedics outpatient this week (6) Diabetes mellitus, type 2 Current Visit: Yes Status: Acute Comment: - Stop glipizide; cannot resume at d/c - Hold metformin; can resume at d/c at lower dosing, likely 500mg BID (7) Hypertension Current Visit: No Status: Acute Code(s): I10 - ESSENTIAL (PRIMARY) HYPERTENSION SNOMED Code(s): 60411177 Comment: - Normotensive - Hold losartan d/t renal function; cannot resume at d/c - Continue amlodipine, metoprolol, hydralazine (8) COPD (chronic obstructive pulmonary disease) Current Visit: No Status: Acute Code(s): J44.9 - CHRONIC OBSTRUCTIVE PULMONARY DISEASE, UNSPECIFIED SNOMED Code(s): 55654208 Comment: - No signs of exacerbation - Continue Spiriva, nebs (9) Hyperlipidemia Current Visit: No Status: Acute Code(s): E78.5 - HYPERLIPIDEMIA, UNSPECIFIED SNOMED Code(s): 69012762 Comment: - Continue lipitor (10) Tobacco abuse Current Visit: No Status: Acute Code(s): Z72.0 - TOBACCO USE SNOMED Code(s ): 828961178 Comment: - Nicotine Inhaler PRN (11) DVT prophylaxis Current Visit: No Status: Acute Code(s): FWK9907 - SNOMED Code(s): 268801026 Comment: - Heparin SQ (12) DNR (do not resuscitate) Current Visit: Yes Status: Acute Status and Disposition: Inpatient. Medically stable for d/c. Will need MOY placement.
[2018-03-29] MEDS: oxyCODONE TAB* 5 MG TAB PO PRN (16:55)
[2018-03-29] MEDS: Atorvastatin* 40 MG TAB PO SCH (16:55)
[2018-03-30] MEDS: cefTRIAXone(*) 1 GM in NS 0.9% 50 ML* 50 ML IVPB SCH (05:23)
[2018-03-30 06:33] LABS: EGFR Non-African American 45.9 (>60)
[2018-03-30] MEDS ORDERED: Magnesium Sulfate IV* 3 GM in NS 0.9% 100 ML* 100 ML IVPB ONE (07:04)
[2018-03-30] MEDS: Tiotropium CAP.INH* CAP.INH/18 MCG (USE ORDER SET !) INH SCH (07:39)
[2018-03-30] MEDS: Insulin LISPRO* 1 UNITS UNIT SUBCUT SCH ×2 (07:58→13:30)
[2018-03-30] MEDS ORDERED: hydrALAZINE TAB* 10 MG PO SCH (09:00)
[2018-03-30] MEDS ORDERED: Magnesium Oxide TAB* 400 MG PO SCH (09:00)
[2018-03-30] MEDS: busPIRone TAB* 15 MG PO SCH (09:12)
[2018-03-30] MEDS: amLODIPine TAB* 5 MG PO SCH (09:13)
[2018-03-30] MEDS: Metoprolol Tartrate TAB* 25 MG PO SCH (09:14)
[2018-03-30] MEDS: guaiFENesin ER TAB 600 MG PO SCH (09:14)
[2018-03-30] MEDS: Citalopram TAB* 20 MG PO SCH (09:14)
[2018-03-30] MEDS: Fluticasone NASAL SPRAY 50MCG* 16 gm SPRAY BTL BOTH NARES SCH (09:16)
[2018-03-30] MEDS: Heparin VIAL(*) 5000 UNITS/ML VIAL (FIVE THOUSAND) SUBCUT SCH (09:17)
[2018-03-30] MEDS: Acetaminophen TAB* 325 MG PO PRN (10:09)
[2018-03-30] MEDS: oxyCODONE TAB* 5 MG TAB PO PRN (10:10)
--- NOTE | 2018-03-30 12:52 | DS ---
CC: Dr. Yamilet Winn * DATE OF ADMISSION: 03/25/2018. DATE OF DISCHARGE: 03/30/2018. PRIMARY CARE PHYSICIAN: Dr. Yamilet Winn. ATTENDING PHYSICIAN: Dr. Jana Damian * (dictated by Gia Huff NP). PRINCIPAL DIAGNOSES: 1. Acute renal failure secondary to NSAID and ARB use. 2. Hypoglycemia secondary to sulfonylurea. 3. E. coli urinary tract infection. 4. Dizziness. 5. Left humerus fracture. 6. Hypertension. SECONDARY DIAGNOSES: 1. Diabetes mellitus type 2. 2. COPD. 3. Hyperlipidemia. STUDIES WHILE IN THE HOSPITAL: 1. Brain CT on 03/25/2018, reads as: No evidence for acute intracranial abnormality. Findings suggestive of mild chronic small vessel ischemic changes. 2. Chest x-ray on 03/25/2018, reads as: No evidence for active cardiopulmonary disease. 3. Transthoracic echocardiogram on 03/26/2018, reads as: The left ventricular chamber size is decreased. Mild concentric left ventricular hypertrophy is observed. Global left ventricular wall motion and contractility are within normal limits. LVEF 65 percent. Evidence of mild left ventricular outflow tract obstruction with dagger shaped profiles. Abnormal left ventricular diastolic filling is observed, consistent with impaired relaxation. The right ventricular global systolic function is normal. The aortic valve is trileaflet; the leaflets are mildly thickened with normal function. There is mitral annular calcification and the mitral valve leaflets are mildly thickened. There is trace to mild mitral regurgitation. There is mild mitral stenosis. The mean gradient across the mitral valve is 4 mmHg. The mitral valve area by pressure half time is calculated at 3 cm2. There is trace tricuspid regurgitation. Compared with prior echo of 11/09/2016, small LV chamber size noted and ventricular function stable, valve function is stable. Dagger shaped LVOT profiles newly noted. 4. Chest x-ray on 03/26/2018, reads as: Again noted is a fracture of the proximal left humerus. No active cardiopulmonary disease. 5. Chest x-ray on 03/28/2018, reads as: No active cardiopulmonary disease is noted. HISTORY OF PRESENT ILLNESS AND HOSPITAL COURSE: Ms. Molina is a 72-year-old female with a past medical history of diabetes mellitus type 2, COPD, recent falls, sulfonylurea-induced hypoglycemia, and hypertension who presented to the emergency room on 03/25/2018 with complaints of confusion and lethargy. Please see the history and physical by MIGUEL Gerardo for a complete summary of the events leading up to this hospital. In short, the patient recently had a sulfonylurea-induced hypoglycemia event. When she presented to the emergency room she denied any loss of consciousness, rather just feeling "woozy." She has a previous left humerus fracture which has been in a sling. She has a chronic cough secondary to nicotine use. She reported that her primary care doctor may have mentioned something about kidney dysfunction; however, the patient was not sure. She reports that her granddaughter manages her medications and she had been taking Glipizide 10 mg b.i.d. for approximately two months. She denied any urinary frequency, dysuria, or feelings of incomplete emptying. In the emergency room, she was noted to have a glucose down to 59 and a creatinine up to 3.6. She was admitted by the Hospitalist Service for acute renal failure and hypoglycemia. The patient's acute renal failure is likely secondary to NSAID use and ARB use. I will note that both Losartan and Valsartan are noted on her med rec, though it appears as though the patient was only taking Losartan 100 mg daily and was no longer taking Valsartan. Regardless, she was treated with IV fluids for her acute renal failure. Her hypoglycemia was related to Glipizide use and was worsened by her acute renal failure. She ultimately did have a urine culture that grew E. coli and has been treated with Ceftriaxone while in the hospital, of which she has received five days. The patient was also noted to have hypertension while here in the hospital with systolic blood pressures up into the 180s. She was not able to continue on her Losartan and was therefore started on both Hydralazine and metoprolol in an attempt to control her blood pressure. She has had dizziness which is likely secondary to her hypertension as imaging was unremarkable and there is no other clear cause for dizziness. As of today, her creatinine is 1.16. She has a GFR of 45. Her medications have been renally dosed in the hospital and she will continue to need renal dosing as an outpatient. She should not be placed back on a sulfonylurea due to multiple instances of hypoglycemia and her Metformin dose will need to be decreased for renal dosing. Additionally, she cannot be placed back on Losartan as this was likely a contributing factor to her acute renal failure. Blood sugars in the hospital for the last two days have been approximately 100 to 190. She has been treated with only Lispro sliding scale while in the hospital. Her left humerus fracture remains stable and is in a sling at this time. She will be placed in an immobilizer prior to discharge as it has been difficult to keep the sling in the correct position. I spoke with the patient and her family today. The patient is agreeable to going to rehab as she does continue to feel weak and has dizziness with sitting and standing. Because of her recent humerus fracture, she would greatly benefit from a subacute rehab. Her family is agreeable to this as well. Her granddaughter is in the process of moving in with her and her son will also be moving in with her, so she will have help at home, including help with medications and help with ADL's including cooking and cleaning. The patient reports feeling well this morning. She denies any pain at rest. She denies any dizziness at rest. She has worked with physical therapy already this morning. Ms. Molina is stable for discharge today. Vital signs are as follows: Temperature 97.8, heart rate 72, respiratory rate 20, oxygen saturation 95 percent on room air, blood pressure 157/46. DISCHARGE MEDICATIONS: New home medications: 1. Hydralazine 20 mg p.o. b.i.d. 2. Magnesium Oxide 400 mg p.o. daily. 3. Metoprolol Tartrate 25 mg p.o. b.i.d. 4. Cephalexin 400 mg p.o. b.i.d x4 days. 5. Nicotine patch 21 mg per 24 hours transderm daily. Changed home medications: 1. Metformin 500 mg p.o. b.i.d. (previously was 1500 mg total daily). Continued medications: 1. Amlodipine 10 mg p.o. daily. 2. Artificial Tears one drop both eyes q.2 hours prn dry eye. 3. Atorvastatin 40 mg p.o. daily. 4. Buspirone 7.5 mg p.o. b.i.d. 5. Celexa 20 mg p.o. daily. 6. Fluticasone nasal spray two sprays both nares daily. 7. Tiotropium one cap inhalation daily. 8. Albuterol MDI two puffs q.6 hours prn shortness of breath or wheezing. 9. Aspirin 81 mg p.o. daily. 10. Tramadol 50 mg p.o. q.8 hours prn pain. Discontinued home medications: 1. Mometasone nasal spray. 2. Losartan. 3. Glipizide. DISCHARGE PLAN: [facility]. ACTIVITY: As tolerated. Her left arm should remain in a sling or immobilizer until follow-up with Orthopedics. DIET: Diabetic, consistent carb. MEDICATIONS: As noted above. The patient should no longer take Losartan or Glipizide due to concerns relating to acute renal failure and hypoglycemia. Her Metformin has been renally dosed based on her GFR of 45. Metoprolol Tartrate and Hydralazine have been added to manage blood pressure and Magnesium Oxide has been added for magnesium supplementation. She will need to complete a four day course of cephalexin to complete a total of 10 days of antibiotic therapy for her UTI. She has also been prescribed a nicotine patch. She can continue her other usual medications per the list above. FOLLOW-UP: She will need to follow-up with care at [facility]. It is recommended that her blood pressure be checked at least b.i.d. for the next week because she has been placed on new medications within the last couple of days. She will need to follow-up with Orthopedics later this week for further management of her left humerus fracture. Ultimately, she will need follow-up on her creatinine and renal function to determine if her medications need further renal dosing. Her blood sugars should be checked a.c. and at bedtime to monitor for hypoglycemia, though I think hypoglycemia is unlikely at this point as she will only be on metformin. Ultimately, she may need an additional antidiabetic medication such as a DPP-4 to replace the Glipizide. She should not be placed on another sulfonylurea. The patient should return to the emergency room for any worsening of symptoms, shortness of breath, lightheadedness, dizziness, chest discomfort, high fevers, chills, night sweats , loss of consciousness, or any other worrisome signs or symptoms. This is a summarized report of a complex medical history and hospital stay. For further details, please see the entire medical record. TIME SPENT: Approximately 45 minutes were spent on this discharge, greater than half of that time was spent [id number] with the patient and her family discussing discharge plans and instructions. GIA HUFF, RECORD TESTER [id number]/[facility] #: [id number] [facility]
[2018-03-30 14:14] VITALS: BP 119/33
== END 2018-03-30 15:00 | DRG 683 ==
LOC: ED 12:54 → MEDTELE 15:09
PROVIDERS: ADMIT Internal Medicine; ATTEND Internal Medicine
DX: N17.9 Acute kidney failure, unspecified (principal); N39.0 Urinary tract infection, site not specified; J44.9 Chronic obstructive pulmonary disease, unspecified; E11.649 Type 2 diabetes mellitus with hypoglycemia without coma; N14.0 Analgesic nephropathy; T39.395A Adverse effect of other nonsteroidal anti-inflammatory drugs [NSAID], initial encounter; T38.3X5A Adverse effect of insulin and oral hypoglycemic [antidiabetic] drugs, initial encounter; B96.20 Unspecified Escherichia coli [E. coli] as the cause of diseases classified elsewhere; I10 Essential (primary) hypertension; E87.5 Hyperkalemia; Z66 Do not resuscitate; E78.5 Hyperlipidemia, unspecified; W19.XXXD Unspecified fall, subsequent encounter; F41.8 Other specified anxiety disorders; F17.210 Nicotine dependence, cigarettes, uncomplicated; S42.302D Unspecified fracture of shaft of humerus, left arm, subsequent encounter for fracture with routine healing; Y92.9 Unspecified place or not applicable; Z79.84 Long term (current) use of oral hypoglycemic drugs; Z79.899 Other long term (current) drug therapy; Z88.5 Allergy status to narcotic agent; Z80.3 Family history of malignant neoplasm of breast; Z82.49 Family history of ischemic heart disease and other diseases of the circulatory system; Z81.1 Family history of alcohol abuse and dependence; Y92.009 Unspecified place in unspecified non-institutional (private) residence as the place of occurrence of the external cause
CPT/HCPCS: 36415; 70450; 71045; 71046; 80048; 80053; 80307; 80320; 80329; 81003; 81015; 82140; 82550; 82607; 82728; 82746; 82947; 83036; 83540; 83550; 83605; 83735; 84443; 84484; 85025; 85610; 87077; 87086; 87186; 93005; 93306; 94640; 96365; 99284; A9270-GY; G0480; G8978-GP-CL; G8979-GP-CI; J0360; J0696; J1644; J2354; J3475; J3480

== ENCOUNTER 2018-05-10 12:42 | Inpatient (IN) | payer MEDICARE, BC ==
--- NOTE | 2018-05-10 12:50 | ED ---
Adult Trauma - HPI Summary HPI Summary: This patient is a 72 year old F brought in by ambulance to [facility] from urgent care with a chief complaint of R hip pain that began status post fall. Patient states that she fell on her right side on her way to the bathroom due to decreased balance because of a subacute fracture of the left shoulder. The patient rates the pain 8/10 in severity. Symptoms aggravated by nothing. Symptoms alleviated by nothing. - History of Current Complaint Stated Complaint: FALL/RIGHT HIP PAIN Hx Obtained From: Patient ?: No Mechanism of Injury: Fall Loss of Consciousness: no loss of consciousness Onset/Duration: Started Hours Ago, Traumatic, Still Present Onset of Pain: Immediate Onset Severity: Severe Current Severity: Severe Pain Intensity: 8 Pain Scale Used: 0-10 Numeric Location: Abdomen/Pelvis Aggravating Factor(s): Nothing Alleviating Factor(s): Nothing - Additional Pertinent History Primary Care Physician: ERNA - Allergy/Home Medications Allergies/Adverse Reactions: Allergies Allergy/AdvReac Type Severity Reaction Status Date / Time codeine Allergy Nausea And Verified 05/10/18 12:51 Vomiting Home Medications: Home Medications Bisacodyl SUPP* [Dulcolax Supp*] 10 mg [place] DAILY PRN 05/10/18 [History Confirmed 05/10/18] Citalopram TAB* [CeleXA TAB*] 20 mg PO 0900 05/10/18 [History Confirmed 05/10/18 ] Guaifenesin/Pseudoephedrne HCl [Mucinex D ER Tablet] 1 tab PO Q12HR PRN [History Confirmed 05/10/18] Magnesium Hydroxide LIQ* [Milk of Magnesia LIQ*] 30 ml PO DAILY PRN 05/10/18 [ History Confirmed 05/10/18] Metoprolol Tartrate TAB* [Lopressor TAB*] 25 mg PO 0900,209905/10/18 [History Confirmed 05/10/18] Sodium Phosphate ADULT ENEMA* [Fleet Enema*] 1 enema [place] DAILY PRN 05/10/18 [ History Confirmed 05/10/18] amLODIPine TAB* [Norvasc 5 mg TAB*] 10 mg PO 0900 05/10/18 [History Confirmed ] hydrALAZINE TAB* [Apresoline TAB*] 20 mg PO 0900,209905/10/18 [History Confirmed 05/10/18] metFORMIN* [Glucophage 500 MG TAB *] 500 mg PO 0900,1800 05/10/18 [History Confirmed 05/10/18] traMADol TAB* [Ultram*] 50 mg PO Q4HR PRN MDD 300 mg 05/10/18 [History Confirmed 05/10/18] traMADol TAB* [Ultram*] 100 mg PO ONCE PRN 05/10/18 [History Confirmed 05/10/18] traMADol TAB* [Ultram*] 100 mg PO ONCE PRN 05/10/18 [History Confirmed 05/10/18] PMH/Surg Hx/FS Hx/Imm Hx Previously Healthy: No Endocrine/Hematology History: Reports: Hx Diabetes Cardiovascular History: Reports: Hx Hypertension Denies: Hx Pacemaker/ICD Respiratory History: Reports: Hx Chronic Obstructive Pulmonary Disease (COPD) GI History: Reports: Hx Gastroesophageal Reflux Disease Musculoskeletal History: Reports: Hx Arthritis, Other Musculoskeletal History - left shoulder dislocation Sensory History: Reports: Hx Contacts or Glasses Denies: Hx Hearing Aid Opthamlomology History: Reports: Hx Contacts or Glasses Neurological History: Reports: Hx CVA, 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 galbladder. cervical fusion - Immunization History Date of Tetanus Vaccine: unkown Date of Influenza Vaccine: Feb 2018 Infectious Disease History: Denies: Hx Clostridium Difficile, Hx Hepatitis, Hx Human Immunodeficiency Virus (HIV), Hx of Known/Suspected MRSA, Hx Shingles, Hx Tuberculosis - Family History Known Family History: Positive: Cardiac Disease, Hypertension, Respiratory Disease, Other - [place]. - Social History Occupation: Retired Lives: With Family Alcohol Use: None Hx Substance Use: No Substance Use Type: Reports: None Hx Tobacco Use: Yes Smoking Status (MU): Heavy Every Day Tobacco Smoker Review of Systems Negative: Fever Positive: Other - Positive R hip pain All Other Systems Reviewed And Are Negative: Yes Physical Exam - Summary Physical Exam Summary: VITAL SIGNS: Reviewed. GENERAL: Patient is a well-developed and nourished female who is lying comfortable in the stretcher. Patient is not in any acute respiratory distress. HEAD AND FACE: No signs of trauma. No ecchymosis, hematomas or skull depressions. No sinus tenderness. EYES: PERRLA, EOMI x 2, No injected conjunctiva, no nystagmus. EARS: Hearing grossly intact. Ear canals and tympanic membranes are within normal limits. MOUTH: Oropharynx within normal limits. NECK: Supple, trachea is midline, no adenopathy, no JVD, no carotid bruit, no c- spine tenderness, neck with full ROM. CHEST: Symmetric, no tenderness at palpation LUNGS: Clear to auscultation bilaterally. No wheezing or crackles. CVS: Regular rate and rhythm, S1 and S2 present, no murmurs or gallops appreciated. ABDOMEN: Soft, non-tender. No signs of distention. No rebound no guarding, and no masses palpated. Bowel sounds are normal. EXTREMITIES: No edema, no cyanosis or clubbing. Tenderness of the right hip, good capillary refill, good pulses, decreased ROM secondary to pain. Decreased ROM in L shoulder secondary to pain NEURO: Alert and oriented x 3. No acute neurological deficits. Speech is normal and follows commands. SKIN: Dry and warm Triage Information Reviewed: Yes Vital Signs Reviewed: Yes Diagnostics - Laboratory Result Diagrams: 05/11/18 04:58 05/11/18 04:58 Lab Statement: Any lab studies that have been ordered have been reviewed, and results considered in the medical decision making process. - Radiology Knee XR Radiology Interpretation Completed By: Radiologist Summary of Radiographic Findings: Knee XR reveals, per radiologist, mild anterior soft tissue swelling. No evidence for fracture or joint effusion. ED physician has reviewed this radiology report. Hip/Pelvis XR Radiology Interpretation Completed By: Radiologist Summary of Radiographic Findings: Hip/Pelvis XR reveals, per radiologist, 1. Acute nondisplaced intertrochanteric fracture of the right femur. 2. Fractures of the right superior and inferior pubic rami which appear chronic. ED physician has reviewed this radiology report. Chest XR Radiology Interpretation Completed By: Radiologist Summary of Radiographic Findings: Chest XR reveals, per radiologist, stigmata of obstructive lung disease. No acute pulmonary or cardiac process evident. ED physician has reviewed this radiology report. - EKG 1300 Cardiac Rate: NL EKG Rhythm: Sinus Rhythm - 79 BPM Summary of EKG Findings: An EKG taken at 1300 reveals nml sinus rhythm at [address] elevation. Re-Evaluation - Re-Evaluation First Eval Re-Evaluation Time: 15:40 Change: Unchanged Comment: Discussed results and plan of care with patient Adult Trauma Course/Dx - Course Assessment/Plan: This patient is a 72 year old F brought in by ambulance to [facility] from urgent care with a chief complaint of R hip pain that began status post fall. Patient states that she fell on her right side on her way to the bathroom due to decreased balance because of a subacute fracture of the left shoulder. The patient rates the pain 8/10 in severity. Symptoms aggravated by nothing. Symptoms alleviated by nothing. Blood work without any significant abnormality except for WBCs of 14.8, hemoglobin 11.7, and no bands. Sodium level is 133, BUN is 30 creatinine is 1.3 glucose is 123. Urinalysis contaminated. Therefore, we will send for urine cultures. X-ray of the knee impression: Mild anterior soft tissue swelling. No evidence for fracture or joint effusion. X-ray of the right hip impression: Acute nondisplaced intertrochanteric fracture of the right femur. Fractures of the right superior and inferior pubis rami which appears chronic. I discussed the case with and Dr. Zamora from orthopedics and she will consult for this patient. I also discussed the case with and Dr. Forrest from the hospital services who accepted the patient for admission. - Diagnoses Provider Diagnoses: Intertrochanteric fracture of right femur - Physician Notifications Discussed Care Of Patient With: Khushbu Zamora Time Discussed With Above Provider: 14:59 Instructed by Provider To: Other - Consult with Dr. Zamora (orthopedics) at 1459. She agrees to consult for the patient. Consult with Dr. Forrest (hospitalist ) at 1511. He agrees to admit the patient for further evaluation. Discharge - Sign-Out/Discharge Documenting (check all that apply): Patient Departure - Admit to [facility] [place] [place] - Discharge Plan Condition: Stable Disposition: ADMITTED TO [facility] - Billing Disposition and Condition Condition: STABLE Disposition: Admitted to [facility] - Attestation Statements Document Initiated by Scribe: Yes Documenting Scribe: Amanda Carrillo Provider For Whom Scribe is Documenting (Include Credential): Dr. Rishi Lund MD Scribe Attestation: IAmanda, scribed for Dr. Rishi Lund MD on 05/11/18 at 2051. Scribe Documentation Reviewed: Yes Provider Attestation: The documentation as recorded by the scribe, Amanda Carrillo accurately reflects the service I personally performed and the decisions made by me, Dr. Rishi Lund MD Status of Scribe Document: Viewed
[2018-05-10 13:05] LABS: Hematocrit 37 % (35-47); Hemoglobin 11.7 g/dl (12.0-16.0); Mean Corpuscular HGB Conc 32 g/dl (31-36); Mean Corpuscular Hemoglobin 25 pg (27-31); Mean Corpuscular Volume 79 fL (80-97); Mean Platelet Volume 8.4 fL (7.4-10.4); Platelet Count 392 10^3/ul (150-450); Red Blood Count 4.61 10^6/ul (4.00-5.40); Red Cell Distribution Width 20 % (10.5-15); White Blood Count 14.8 10^3/ul (3.5-10.8)
[2018-05-10] MEDS ORDERED: Morphine VIAL* 4 MG/ML VIAL (1 ml vial) IV ONE ×2 (13:22→21:00)
[2018-05-10] MEDS ORDERED: Ondansetron INJ* 2 MG/ML VIAL IV ONE (13:23)
[2018-05-10 13:24] LABS: Albumin 3.2 g/dL (3.2-5.2); Albumin/Globulin Ratio 0.9 (1-3); BUN/Creatinine Ratio 23.1 (8-20); C Reactive Protein 6.3 mg/L (<8.01); Calcium 9.2 mg/dL (8.6-10.3); EGFR African American 48.7 (>60); EGFR Non-African American 40.3 (>60); Globulin 3.4 g/dL (2-4); Potassium 4.7 mmol/L (3.5-5.0); Total Bilirubin 0.2 mg/dL (0.2-1.0); Total Protein 6.6 g/dL (6.4-8.9)
[2018-05-10] MEDS ORDERED: NS 0.9% 1000 ML** 1,000 ML IV SCH ×2 (13:30→21:00)
--- OUTSIDE RECORDS SUMMARY | 2018-05-10 13:39 | XMS REPORT | Continuity of Care Document ---
:1945 External Reference #:[id number] Author Name Zohra Moon Care Team Providers Name Role Phone Yamilet Winn MD Primary Care Physician Unavailable Payers Type Date Identification Numbers Payment Provider Subscriber Effective: 2010 Policy Number: [id number] Medicare Lakshmi Molina PayID: [id number] [address] [place] [address] Effective: 2014 Policy Number: [id number] [facility] Braydon Molina PayID: [id number] [address] [address] [place] [address] Advance Directives Description No Information Available Problems Date Description Provider Status Onset: 04/08/2018 Unspecified fracture of shaft of Tian Gusman MD Active humerus, unspecified arm, subsequent encounter for fracture with routine healing Family History Description No Information Available Social History Type Date Description Comments Sex Unknown Tobacco Use Start: Unknown Heavy tobacco smoker (more than 10 cigarettes/day) Tobacco Use Start: Unknown Patient is a current smoker, smokes every day Smoking Status Reviewed: 04/29/18 Patient is a current smoker, smokes every day Allergies, Adverse Reactions, Alerts Description No Known Drug Allergies Medications Medication Date Status Form Strength Qnty SIG Indications Ordering Provider Amlodipine Besylate Active Tablets 10mg Take One Unknown /0000 Tablet By Mouth Every Day Atorvastatin Calcium 00 Active Tablets 40mg Take One Unknown /0000 Tablet By Mouth Every Day Buspirone HCL Active Tablets 15mg Take 1 2 Unknown /0000 Tablet By Mouth Two Times A Day Citalopram Active Tablets 20mg Take One Unknown Hydrobromide /0000 Tablet By Mouth Every Day Spiriva Handihaler Active Capsules 18mcg Unknown /0000 Metformin HCL 00/00 Active Tablets 500mg Take 1 Unknown /0000 Tablet By Mouth Every Morning And 2 Tablets Every Evening Hydrochlorothiazide 0000 Active Capsules 12.5mg Take One Unknown /0000 Capsule By Mouth Every Day Hydrocodone-Acetamino 00 Active Tablets 5-325mg Take One Unknown phen /0000 Tablet By Mouth Every 4 Hours as Needed For Pain Maximum Lois Immunizations Description No Information Available Vital Signs Date Vital Result Comment 04/29/2018 11:09am Height 63.5 inches 5'3.50" Heart Rate 87 /min Respiratory Rate 18 /min Pain Level 5 04/08/2018 1:10pm Height 63.5 inches 5'3.50" Heart Rate 65 /min BP Systolic 128 mmHg BP Diastolic 88 mmHg Respiratory Rate 17 /min Pain Level 9 11/28/2016 9:53am Height 63.5 inches 5'3.50" Weight 118.00 lb Heart Rate 102 /min BP Systolic Sitting 180 mmHg after visit 140/88 BP Diastolic Sitting 92 mmHg after visit 140/88 Body Temperature 98.0 F Pain Level 0 BMI (Body Mass Index) 20.6 kg/m2 Results Description No Information Available Procedures Date Code Description Status 03/26/2018 41417 ECHO Transthorasic Realtime 2D W Doppler & Color Flow Hosp Completed 11/11/2016 43803 Insertion Interbody Biomechanical Device; Each Interspace Completed 11/11/2016 79787 Insertion Interbody Biomechanical Device; Each Interspace Completed 11/11/2016 22758 Anterior Instrumentation 2-3 Vertebral Segments Completed 11/11/2016 30749 Anterior Instrumentation 2-3 Vertebral Segments Completed 11/11/2016 01671 arthrodesis,anterior interbody incl disc space Completed prep,discectomy,de 11/11/2016 36485 arthrodesis,anterior interbody incl disc space Completed prep,discectomy,de 11/09/2016 10678 ECHO Transthorasic Realtime 2D W Doppler & Color Flow Hosp Completed Encounters Type Date Location Provider Dx Diagnosis Office Visit 04/08/2018 Orthopedic Tian Menjivar S42.309D Unsp fx shaft of 1:00p Services Of Lilly Gusman MD humerus, unsp arm, subs for fx w routn heal S42.352A Displaced comminuted fx shaft of humerus, left arm, init Office Visit 03/30/2018 9:45a [facility] Gia Daria, N17.9 Acute kidney Assoc,[facility] [place] failure, Hospitalists unspecified Z79.1 detention (current) use of non-steroidal non-inflam (Nsaid) E16.2 Hypoglycemia, unspecified B96.20 Unsp Escherichia coli as the cause of diseases classd elswhr R42 Dizziness and giddiness S42.309D Unsp fx shaft of humerus, unsp arm, subs for fx w routn heal E11.9 Type 2 diabetes mellitus without complications J44.1 Chronic obstructive pulmonary disease w (acute) exacerbation Office Visit 03/29/2018 9:45a [facility] Gia Daria, N17.9 Acute kidney Assoc,[facility] [place] failure, Hospitalists unspecified T38.3x1D Poisoning by insulin and oral hypoglycemic drugs, acc, subs E16.0 Drug-induced hypoglycemia without coma N39.0 Urinary tract infection, site not specified R42 Dizziness and giddiness S42.309D Unsp fx shaft of humerus, unsp arm, subs for fx w routn heal E11.9 Type 2 diabetes mellitus without complications I10 Essential (primary) hypertension J44.9 Chronic obstructive pulmonary disease, unspecified Office Visit 03/28/2018 9:44a [facility] Gia Daria, N17.9 Acute kidney Assoc,pc [place] failure, Hospitalists unspecified T38.3x1D Poisoning by insulin and oral hypoglycemic drugs, acc, subs E16.0 Drug-induced hypoglycemia without coma N39.0 Urinary tract infection, site not specified R42 Dizziness and giddiness S42.309D Unsp fx shaft of humerus, unsp arm, subs for fx w routn heal E11.9 Type 2 diabetes mellitus without complications I10 Essential (primary) hypertension Office Visit 03/27/2018 9:44a [facility] Gia Daria, N17.9 Acute kidney Assoc,[facility] [place] failure, Hospitalists unspecified T38.3x1A Poisoning by insulin and oral hypoglycemic drugs, acc, init E16.0 Drug-induced hypoglycemia without coma E11.9 Type 2 diabetes mellitus without complications S42.309A Unsp fracture of shaft of humerus, unsp arm, init I10 Essential (primary) hypertension J44.9 Chronic obstructive pulmonary disease, unspecified E78.5 Hyperlipidemia, unspecified Z72.0 Tobacco use Office Visit 03/26/2018 9:44a [facility] Roderick N17.9 Acute kidney Assoc,pc [place], [place] failure, Hospitalists unspecified T38.3x1A Poisoning by insulin and oral hypoglycemic drugs, acc, init E16.0 Drug-induced hypoglycemia without coma S42.309A Unsp fracture of shaft of humerus, unsp arm, init J44.9 Chronic obstructive pulmonary disease, unspecified E78.5 Hyperlipidemia, unspecified I10 Essential (primary) hypertension Z72.0 Tobacco use Office Visit 03/25/2018 9:43a [facility] Roderick N17.9 Acute kidney Assoc,pc [place], [place] failure, Hospitalists unspecified E16.2 Hypoglycemia, unspecified I10 Essential (primary) hypertension R00.2 Palpitations R42 Dizziness and giddiness E87.5 Hyperkalemia F41.9 Anxiety disorder, unspecified F32.9 Major depressive disorder, single episode, unspecified Office Visit 12/31/2016 1:51p [facility] Vivek Forrest MD G51.0 [place]'s palsy [facility], Hospitalists E11.649 Type 2 diabetes mellitus with hypoglycemia without coma T38.3x4A Poisn by insulin and oral hypoglycemic drugs, undet, init I10 Essential (primary) hypertension Office Visit 12/30/2016 1:50p [facility] Vivek Forrest, E11.649 Type 2 diabetes Assoc, MD mellitus with Hospitalists hypoglycemia without coma G51.0 [place]'s palsy T38.3x4A Poisn by insulin and oral hypoglycemic drugs, undet, init I10 Essential (primary) hypertension Office Visit 12/30/2016 11:33a [facility] Ian Mason R53.1 Emory Samuels M.D. G51.0 [place]'s palsy Z98.1 Arthrodesis status Office Visit 11/09/2016 Neurosurgery Services Ian M47.12 Other 7:00a Of Kary Be M.D. spondylosis with myelopathy, cervical region Office Visit 11/08/2016 Neurohospitalist Tucker M47.12 Other 11:34a Clinic MD John spondylosis with myelopathy, cervical region G51.0 [place]'s palsy Office Visit 11/08/2016 7:00a Neurosurgery Keegan Garcia M47.12 Other spondylosis Services Of Transfusion Nurse LI, M.D., PHD with myelopathy, cervical region R47.81 Slurred speech R29.818 Other symptoms and signs involving the nervous system Office Visit 11/07/2016 7:00a Neurosurgery Keegan DEGROOT, G51.0 [place]'s palsy Services Of Kary Blanco, PHD R47.81 Slurred speech Office Visit 11/07/2016 Neurohospitalist Gertrudis M47.12 Other 11:34a Clinic Francis Miramontes spondylosis with myelopathy, cervical region G51.0 [place]'s palsy Office Visit 11/06/2016 Neurohospitalist Gertrudis M47.12 Other 11:33a Clinic Francis Miramontes spondylosis with myelopathy, cervical region G51.0 [place]'s palsy Office Visit 11/06/2016 3:16p [facility], G51.0 [place]' s palsy [facility] [place] Hospitalists W19.xxxD Unspecified fall, subsequent encounter G62.9 Polyneuropathy, unspecified R42 Dizziness and giddiness Office Visit 09/25/2009 1:00p Neurosurgery Tomer Patten 721.0 Spondylosis Services Of Kary Mgcuire M.D. Cervical W/O Myelopathy Plan of Treatment Future Appointment(s):05/25/2018 11:15 am - Tian Gusman MD at [facility].04/29/2018 - Tian Gusman, MDS42.212D Unspecified displaced fracture of surgical neck of left humeFollow up:Follow up : 3 weeks with xrays
[2018-05-10 13:49] LABS: Urine Appearance Turbid; Urine Bacteria Absent (Absent); Urine Bilirubin Negative (Negative); Urine Blood 2+ (Negative); Urine Color Amber; Urine Glucose Negative (Negative); Urine Ketones Negative (Negative); Urine Nitrite Negative (Negative); Urine Protein 3+(>=500 mg/dL) (Negative); Urine Red Blood Cell 2+(6-10/hpf) (Absent); Urine Specific Gravity 1.018 (1.010-1.030); Urine Squamous Epithelial Cell Present (Absent); Urine Urobilinogen Negative (Negative); Urine White Blood Cell 3+(>20/hpf) (Absent)
[2018-05-10 13:52] LABS: ABS Basophils 0.2 10^3/ul (0-0.2); ABS Eosinophils 0 10^3/ul (0-0.6); ABS Lymphocytes 1.2 10^3/ul (1.0-4.8); ABS Monocytes 0.6 10^3/ul (0-0.8); ABS Neutrophils 12.8 10^3/ul (1.5-7.7); ABS Nucleated RBC 0 10^3/ul; Eosinophil % 0.3 %; Lymphocyte % 7.9 %; Microcytosis 2+; Nucleated Red Blood Cells % 0
[2018-05-10] MEDS ORDERED: Albuterol HFA INHALER* 8 gm MDI INH PRN (16:06)
[2018-05-10] MEDS ORDERED: Sodium Phosphate ADULT ENEMA* 118 ml bottle PR PRN (16:06)
[2018-05-10] MEDS ORDERED: Artificial Tears* 15 ML BTL BOTH EYES PRN (16:06)
[2018-05-10] MEDS ORDERED: Bisacodyl SUPP* 10 MG SUPP PR PRN (16:06)
[2018-05-10] MEDS ORDERED: Pseudoephedrine TAB* 60 MG PO PRN (16:06)
[2018-05-10] MEDS ORDERED: Guaifenesin/Pseudo 600/60(NF) TAB (Mucinex D) PO PRN (16:06)
[2018-05-10] MEDS ORDERED: Magnesium Hydroxide LIQ* 30 ML UDC PO PRN (16:06)
[2018-05-10] MEDS ORDERED: Morphine VIAL* 4 MG/ML VIAL (1 ml vial) IV PRN ×2 (16:09→21:30)
[2018-05-10] MEDS: Atorvastatin* 40 MG TAB PO SCH (18:40)
[2018-05-10] MEDS ORDERED: Morphine VIAL* 10 MG/ML 1 ML VIAL IV ONE (19:44)
[2018-05-10] MEDS ORDERED: Morphine VIAL* 10 MG/ML 1 ML VIAL IM ONE (19:44)
[2018-05-10] MEDS ORDERED: Morphine VIAL* 4 MG/ML VIAL (1 ml vial) ONE (20:09)
--- NOTE | 2018-05-10 20:27 | CONS ---
CC: Dr. Zamora.* CONSULTATION REPORT: DATE OF CONSULT: 05/10/18 CHIEF COMPLAINT: Right hip pain. HISTORY OF PRESENT ILLNESS: Lakshmi is a 72-year-old woman who is currently living at [facility] because she had a recent humerus fracture. She fell on to her right side and complained of right hip pain. She was brought to the emergency room. X-ray shows a nondisplaced intertrochanteric fracture of the right femur. She also has healed pubic ramus fractures from a previous injury. She has a history of COPD, uses oxygen at night, and was admitted to the hospital now by the hospitalist for care of her hip fracture. PHYSICAL EXAM: On physical exam, she is an elderly woman, in mild distress at rest. She has tenderness on the lateral aspect of her right hip. She has good range of motion of her toes and intact neurovascular function in her right lower extremity. Her lower extremity is perfused. She has painful range of motion of the hip. Her left arm is in a sling. DIAGNOSTIC STUDIES/LAB DATA: X-rays were reviewed, which show a nondisplaced fracture of the right femur in the intertrochanteric area. IMPRESSION: Right intertrochanteric hip fracture. PLAN/RECOMMENDATIONS: Plan is for open reduction and internal fixation of the right hip when she is cleared by the hospitalists who are admitting her. Hopefully, this will occur tomorrow. She is not on any anticoagulation. I explained to her the surgical procedure, risks, and benefits. [id number]/[facility] #: [id number] LORETO
[2018-05-10] MEDS: Metoprolol Tartrate TAB* 25 MG PO SCH (20:42)
[2018-05-10] MEDS: hydrALAZINE TAB* 10 MG PO SCH (20:42)
[2018-05-10] MEDS: busPIRone TAB* 15 MG PO SCH (20:45)
[2018-05-10] MEDS ORDERED: Dextrose 50% Syringe 50 ML* 25 GM/50 ML SYRINGE IV PUSH PRN (20:51)
[2018-05-10] MEDS: guaiFENesin ER TAB 600 MG PO PRN (21:57)
[2018-05-10] MEDS: Insulin LISPRO* 1 UNITS UNIT SUBCUT SCH (22:03)
[2018-05-11] MEDS: Morphine VIAL* 4 MG/ML VIAL (1 ml vial) IV PRN ×4 (00:19→15:29)
--- NOTE | 2018-05-11 00:38 | HP ---
HISTORY AND PHYSICAL: DATE OF ADMISSION: 05/10/18 ADMITTING PROVIDER: Vivek Forrest MD PRIMARY CARE PROVIDER: Dr. Winn CONSULTING ORTHOPEDIC SURGEON: Dr. Khushbu Zamora CHIEF COMPLAINT: Fall with resulting right intertrochanteric femur fracture. HISTORY OF PRESENT ILLNESS: Lakhsmi Molina is a 72-year-old female with past medical history of COPD, pzq-tvttfzf-wnfoqnwlj diabetes mellitus type 2, hyperlipidemia, anxiety, depression, [place] palsy, recent comminuted proximal left humerus fracture, hypertension who has been recovering at [facility] since her discharge, 03/30/18, when she presented for acute renal failure, hypoglycemia and E. coli UTI. She states she was in her normal state of health , standing, when she turned her head, became dizzy, and collapsed to the floor. She denies any chest pain; she says that there was a slight world-spinning quality to her dizziness. She denies any shortness of breath. She presented to the [facility] emergency room, had a hip/pelvis x-ray, which showed acute nondisplaced intertrochanteric fracture of the right femur; also fractures of the right superior and inferior pubic rami, was referred to the hospitalist service for admission, and Dr. Khushbu Zamora of Orthopedics was consulted. She also had a knee x-ray, which showed mild anterior soft tissue swelling. She denies any fevers, chills, nausea, vomiting, abdominal pain. She did have leukocytosis of 14.8, stable; creatinine of 1.3. PAST MEDICAL HISTORY: 1. COPD. 2. Mrj-yrijndp-acpanseln diabetes mellitus type 2. 3. Hyperlipidemia. 4. Anxiety. 5. Depression. 6. [place] palsy. 7. Recent comminuted proximal left humerus fracture. 8. Hypertension. HOME MEDICATIONS: Include: 1. Lopressor 25 mg p.o. b.i.d. 2. Tramadol 50 mg p.o. q.4 hours p.r.n. and 100 mg p.o. once p.r.n. daily. 3. Sodium phosphate enema per rectum daily p.r.n. 4. Magnesium hydroxide 30 mg p.o. daily p.r.n. 5. Docusate 10 mg per rectum daily p.r.n. 6. Mucinex D extended release 1 tab p.o. q.12 hours p.r.n. 7. Artificial Tears 1 drop both eyes q.2 hours p.r.n. 8. Albuterol sulfate 2 puffs inhaled q.6 hours p.r.n. 9. Spiriva 1 capsule inhaled daily. 10. Aspirin 81 mg p.o. daily. 11. Celexa 20 mg p.o. daily. 12. Flonase 2 sprays both nares daily. 13. BuSpar 7.5 mg p.o. b.i.d. 14. Atorvastatin 40 mg p.o. q.p.m. 15. Amlodipine 10 mg p.o. q.a.m. 16. Metformin 500 mg p.o. b.i.d. 17. Nicotine patch 21 mg transdermal daily. 18. Magnesium oxide 400 mg p.o. daily. 19. Hydralazine 20 mg p.o. b.i.d. ALLERGIES: CODEINE (nausea and vomiting). FAMILY HISTORY: Mother of breast cancer, father of myocardial infarction. Two brothers, both had alcoholism. One causing loss of life. SOCIAL HISTORY: Patient is a recent smoker currently with nicotine patch, formerly had smoked since 12 years old; former alcohol abuse, not used in 20 plus years. No drug use. 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 Medical surrogate is her , who is also now currently residing at [facility], named Vivek Molina; secondary medical surrogate is granddaughter, Nahomi Velasco. PHYSICAL EXAMINATION GENERAL APPEARANCE: No acute distress. VITAL SIGNS: Temperature 97.8, pulse rate 80, respiratory rate 18, blood pressure 153/89, satting 96% on room air. HEENT: Normocephalic, atraumatic. Pupils equally round and reactive to light. Extraocular motions intact. Moist mucous membranes. NECK: Supple. No cervical lymphadenopathy. LUNGS: Anteriorly clear to auscultation bilaterally with no wheezing, rales, or rhonchi. CARDIOVASCULAR: Regular rate and rhythm. No murmurs, rubs or gallops. ABDOMEN: Soft, nontender, nondistended. EXTREMITIES: Warm, well perfused. No peripheral edema. SKIN: No lesions. No rashes. DIAGNOSTIC STUDIES/LAB DATA: White count 14.8, hemoglobin 11.7, hematocrit 37 , platelets 392. Sodium 133, potassium 4.7, chloride 103, BUN 30, creatinine 1.30, glucose 123, total bili 0.2, AST 17, ALT 17, alk phos 98, CRP 6.3. Urinalysis 3+ protein, 2+ blood, trace leukocyte esterase, 2+ white count, 2+ RBCs. Hip x-ray with acute nondisplaced intertrochanteric fracture of the right femur , 2 fractures of the right superior and inferior pubic rami which appeared chronic. Right knee x-ray with mild anterior soft tissue swelling. No evidence of fracture or joint effusion. Chest x-ray demonstrated stigmata of obstructive lung disease. No acute pulmonary or cardiac process evident. EKG, which demonstrated normal sinus rhythm. No ST elevations or depressions. Normal T-waves, normal axis. ASSESSMENT AND PLAN: Lakshmi Molina is a 72-year-old female with past medical history of chronic obstructive pulmonary disease, asthma, hypertension, recent fall with left humerus fracture, now presenting with fall with right intertrochanteric femur fracture. The story is somewhat concerning for cardiogenic versus vertigo. Frankly, the latter is a little bit more likely. She does have a recent echocardiogram from, 03/25/18, which demonstrated ejection fraction 60 to 65% with some diastolic dysfunction, mild concentric left ventricular hypertrophy, mild mitral stenosis, trace mitral regurgitation, trace tricuspid regurgitation. She will need a surgery. She wants to be ambulatory. She is diabetic with non- insulin dependence. She has no pathological Q-waves on EKG. She does have some diastolic dysfunction, but not on any diuretics, because concern may be her chronic kidney disease with recent acute renal failure admission that rapidly improved. Her GFR is at baseline is 40 - CKD stage 3B. I would encourage hydration morning of surgery and maintain blood pressures as able. She is slightly hypertensive here, and we will continue her metoprolol tartrate 25 b.i.d. and I am going to hold her amlodipine 10 morning of surgery. I do not believe she needs further cardiological workup including recommend no stress test. RCRI is 1 for her diastolic congestive heart failure. She is medically clear for surgery. I am going to hold her metformin, put her on sliding scale insulin. For chronic obstructive pulmonary disease, continue Spiriva inhaled daily, albuterol q.6 hours p.r.n. she is being hydrated with normal saline at 100 cc an hour for the next 10 hours. For anxiety and depression, continue Celexa 20 mg p.o. q.a.m. and BuSpar 7.5 mg p.o. b.i.d. Hyperlipidemia, continue her atorvastatin 40 mg p.o. daily. Continue her eyedrops. She will be placed on DVT prophylaxis after her surgery likely with Lovenox. Repeat BMP, CBC daily. She does have leukocytosis following her fall. She is afebrile. There is trace leukocyte esterase and 3+ WBCs, but no urine bacteria, no nitrites. She is a DNR/DNI. Medical surrogate is , Vivek Molina, with secondary being the granddaughter, Nahomi Velasco. [id number]/[facility] #: [id number] LORETO
[2018-05-11 05:35] LABS: Hematocrit 32 % (35-47); Hemoglobin 10.5 g/dl (12.0-16.0); Mean Corpuscular HGB Conc 33 g/dl (31-36); Mean Corpuscular Hemoglobin 26 pg (27-31); Mean Corpuscular Volume 80 fL (80-97); Mean Platelet Volume 8.8 fL (7.4-10.4); Platelet Count 319 10^3/ul (150-450); Red Blood Count 4.02 10^6/ul (4.00-5.40); Red Cell Distribution Width 19 % (10.5-15); White Blood Count 8.7 10^3/ul (3.5-10.8)
[2018-05-11 06:01] LABS: ABS Basophils 0 10^3/ul (0-0.2); ABS Eosinophils 0.1 10^3/ul (0-0.6); ABS Lymphocytes 1.6 10^3/ul (1.0-4.8); ABS Monocytes 0.7 10^3/ul (0-0.8); ABS Neutrophils 6.4 10^3/ul (1.5-7.7); ABS Nucleated RBC 0 10^3/ul; BUN/Creatinine Ratio 21.7 (8-20); Calcium 8.3 mg/dL (8.6-10.3); EGFR African American 53.4 (>60); EGFR Non-African American 44.2 (>60); Eosinophil % 0.8 %; Lymphocyte % 17.9 %; Nucleated Red Blood Cells % 0; Potassium 4.3 mmol/L (3.5-5.0)
[2018-05-11] MEDS: Insulin LISPRO* 1 UNITS UNIT SUBCUT SCH ×4 (07:24→22:31)
[2018-05-11] MEDS: Tiotropium CAP.INH* CAP.INH/18 MCG (USE ORDER SET !) INH SCH (07:38)
[2018-05-11] MEDS: Aspirin EC TAB* 81 MG TAB.EC PO SCH (08:45)
[2018-05-11] MEDS: busPIRone TAB* 15 MG PO SCH ×2 (08:45→22:24)
[2018-05-11] MEDS: Citalopram TAB* 20 MG PO SCH (08:45)
[2018-05-11] MEDS: Magnesium Oxide TAB* 400 MG PO SCH (08:46)
[2018-05-11] MEDS: hydrALAZINE TAB* 10 MG PO SCH ×2 (08:46→22:17)
[2018-05-11] MEDS: Metoprolol Tartrate TAB* 25 MG PO SCH ×2 (08:50→22:16)
[2018-05-11] MEDS: Nicotine PATCH 21 MG/24 HR* PATCH TRANSDERM SCH (08:55)
[2018-05-11] MEDS: Fluticasone NASAL SPRAY 50MCG* 16 gm SPRAY BTL BOTH NARES SCH (08:57)
[2018-05-11] MEDS ORDERED: NS 0.9% 1000 ML** 1,000 ML IV SCH (09:00)
[2018-05-11] MEDS ORDERED: Spiriva Inhaler DEVICE* 1 EACH DEVICE INH ONE (09:00)
[2018-05-11] MEDS ORDERED: Buffered Lidocaine 0.9% SYRIN* 5 ML/SYR SYRINGE INTRADERM ONE (09:00)
[2018-05-11] MEDS ORDERED: amLODIPine TAB* 5 MG PO SCH (09:00)
[2018-05-11] MEDS: guaiFENesin ER TAB 600 MG PO PRN (09:02)
[2018-05-11 10:53] LABS: Hepatitis C Antibody Nonreactive (Nonreactive)
[2018-05-11] MEDS ORDERED: Morphine VIAL* 4 MG/ML VIAL (1 ml vial) IV PRN (10:57)
[2018-05-11] MEDS ORDERED: Morphine VIAL* 4 MG/ML VIAL (1 ml vial) ONE (11:00)
--- NOTE | 2018-05-11 11:26 | PN ---
Subjective Date of Service: 05/11/18 Interval History: C/o right hip pain , worse with movement. Denies chest pain or shortness of breath. reports cough , chronic unchanged , reports mild nausea, denies vomiting or abd pain. Family History: Unchanged from Admission Social History: Unchanged from Admission Past Medical History: Unchanged from Admission Objective Active Medications: Albuterol (Ventolin Hfa Inhaler*) 1 puff INH Q6H PRN PRN Reason: SOB/WHEEZING Aspirin (Aspirin Ec Tab*) 81 mg PO DAILY [facility] Last Admin: 05/11/18 08:45 Dose: 81 mg Atorvastatin Calcium (Lipitor*) 40 mg PO QPM [facility] Last Admin: 05/10/18 18:40 Dose: 40 mg Bisacodyl (Dulcolax Supp*) 10 mg UT DAILY PRN PRN Reason: CONSTIPATION Buspirone HCl (Buspar Tab *) 7.5 mg PO 0900,2100 [facility] Last Admin: 05/11/18 08:45 Dose: 7.5 mg Citalopram Hydrobromide (Celexa Tab*) 20 mg PO 0900 [facility] Last Admin: 05/11/18 08:45 Dose: 20 mg Dextrose (D50w Syringe 50 Ml*) 12.5 gm IV PUSH .FOR FS < 60 - SS PRN PRN Reason: FS < 60 Fluticasone Propionate (Flonase Nasal [place] 50mcg*) 2 spray BOTH NARES DAILY [facility] Last Admin: 05/11/18 08:57 Dose: 2 spray Guaifenesin (Mucinex*) 600 mg PO Q12H PRN PRN Reason: CONGESTION Last Admin: 05/11/18 09:02 Dose: 600 mg Hydralazine HCl (Apresoline Tab*) 20 mg PO 0900,2100 [facility] Last Admin: 05/11/18 08:46 Dose: 20 mg Sodium Chloride (Ns 0.9% 1000 Ml*) 1,000 mls @ 50 mls/hr IV PER RATE [facility] Last Admin: 05/11/18 09:19 Dose: 50 mls/hr Insulin Human Lispro (Humalog*) 0 units SUBCUT ACHS [facility]; Protocol Last Admin: 05/11/18 07:24 Dose: Not Given Magnesium Hydroxide (Milk Of Magnesia Liq*) 30 ml PO DAILY PRN PRN Reason: CONSTIPATION Magnesium Oxide (Magox 400 Tab*) 400 mg PO DAILY [facility] Last Admin: 05/11/18 08:46 Dose: 400 mg Metoprolol Tartrate (Lopressor Tab*) 25 mg PO 899,2099 [facility] Last Admin: 05/11/18 08:50 Dose: 25 mg Morphine Sulfate (Morphine Vial*) 2 mg IV Q4H PRN PRN Reason: PAIN Last Admin: 05/11/18 08:52 Dose: 2 mg Morphine Sulfate (Morphine Vial*) 1 mg IV Q2H PRN PRN Reason: PAIN - SEVERE Nicotine (Nicotine Patch 21 Mg/24 Hr*) 1 patch TRANSDERM DAILY [facility] Last Admin: 05/11/18 08:55 Dose: 1 patch Pharmacy Profile Note (Nicotine Patch Removal Note*) 1 note PATCH OFF 2099 [facility] Polyvinyl Alcohol (Polyvinyl Alcohol 1.4% Opth*) 1 drop BOTH EYES Q2H PRN PRN Reason: DRY EYE Pseudoephedrine HCl (Sudafed Tab*) 60 mg PO Q12H PRN PRN Reason: CONGESTION Last Admin: 05/10/18 21:56 Dose: 60 mg Sodium Biphosphate/Sodium Phosphate (Fleet Enema*) 1 bottle UT DAILY PRN PRN Reason: CONSTIPATION Tiotropium [place] (Spiriva Cap.Inh*) 1 cap INH DAILY [facility] Last Admin: 05/11/18 07:38 Dose: 1 cap Vital Signs - 8 hr 05/11/18 05/11/18 05/11/18 03:25 04:18 05:23 Temperature 97.6 F Pulse Rate 80 Respiratory 22 16 16 Rate Blood Pressure 155/45 (mmHg) O2 Sat by Pulse 100 Oximetry 05/11/18 05/11/18 05/11/18 08:52 10:05 11:05 Temperature Pulse Rate Respiratory 20 15 16 Rate Blood Pressure (mmHg) O2 Sat by Pulse Oximetry Oxygen Devices in Use Now: Nasal Cannula Appearance: alert and oriented resting in bed, no acute distress Eyes: No Scleral Icterus Ears/Nose/Mouth/Throat: NL Teeth, Lips, Gums, Mucous Membranes Moist Neck: NL Appearance and Movements; NL JVP Respiratory: Symmetrical Chest Expansion and Respiratory Effort, - - diminished in the bases bilat Cardiovascular: NL Sounds; No Murmurs; No JVD, No Edema Abdominal: NL Sounds; No Tenderness; No Distention Extremities: No Edema, No Clubbing, Cyanosis Skin: No Rash or Ulcers, - - right foot with small amount of ecchymosis, small bruise noted to right lateral lower thigh, small amount of swelling noted to right thigh Neurological: Alert and Oriented x 3 Nutrition: - - NPO for surgery Result Diagrams: 05/11/18 04:58 05/11/18 04:58 Microbiology and Other Data: Microbiology 05/10/18 12:48 Urine Culture - Preliminary Urine Escherichia Coli 05/11/18 07:05 Nasal Screen MRSA (PCR) - Final Nasal Mrsa Not Detected Assess/Plan/Problems-Billing Assessment: Ms. Molina 72 y.o female recent left humerus fracture who was at [facility] yesterday had a fall sustaining a right hip fracture. - Patient Problems (1) Closed right hip fracture Current Visit: Yes Status: Acute Code(s): S72.001A - FRACTURE OF UNSP PART OF NECK OF RIGHT FEMUR, INIT SNOMED Code(s): 826331776 Comment: - management per ortho - PT/OT per ortho - DVT prop per ortho - To the OR today at 430 (2) COPD (chronic obstructive pulmonary disease) Current Visit: No Status: Acute Code(s): J44.9 - CHRONIC OBSTRUCTIVE PULMONARY DISEASE, UNSPECIFIED SNOMED Code(s): 37430823 Comment: - No signs of exacerbation - Continue Spiriva, nebs (3) Diabetes mellitus, type 2 Current Visit: No Status: Acute Comment: - Accu check AC and lispro sliding scale - Hold metformin (4) E. coli UTI (urinary tract infection) Current Visit: No Status: Acute Code(s): N39.0 - URINARY TRACT INFECTION, SITE NOT SPECIFIED; B96.20 - UNSP ESCHERICHIA COLI THE CAUSE OF DISEASES CLASSD [facility] SNOMED Code(s): 113708768 Comment: - Noted on urine culture 05/10/18 - will start ceftriaxone (5) Hypertension Current Visit: No Status: Acute Code(s): I10 - ESSENTIAL (PRIMARY) HYPERTENSION SNOMED Code(s): 80361516 Comment: - Normotensive
[2018-05-11] MEDS: cefTRIAXone(*) 1 GM in NS 0.9% 50 ML* 50 ML IVPB SCH (12:53)
[2018-05-11] MEDS ORDERED: Polyethylene Glycol 3350* 17 GM PACKET PO PRN (14:02)
[2018-05-11] MEDS ORDERED: Senna TAB PO PRN (14:02)
[2018-05-11] MEDS ORDERED: fentaNYL* 50 MCG/ML 2 ML VIAL (100 MCG VIAL) ONE (17:36)
[2018-05-11] MEDS: Atorvastatin* 40 MG TAB PO SCH (17:48)
[2018-05-11] MEDS ORDERED: Clindamycin 900 MG/D5W BAG(*) 900 MG/50 ML BAG IVPB ONE (18:02)
[2018-05-11] MEDS ORDERED: EPHEDrine (Pressors)* 50 MG/ML VIAL ONE (18:03)
[2018-05-11] MEDS ORDERED: Phenylephrine INJ* 10 MG/ML 1 ML VIAL (10 MG) ONE ×2 (18:06→18:08)
[2018-05-11] MEDS ORDERED: fentaNYL* 50 MCG/ML 2 ML VIAL (100 MCG VIAL) IV PRN (19:14)
[2018-05-11] MEDS ORDERED: Acetaminophen IV 1GM/100ML * 1,000 MG/100 ML VIAL IVPB ONE (19:14)
[2018-05-11] MEDS ORDERED: Ondansetron INJ* 2 MG/ML VIAL IV PRN (19:14)
[2018-05-11] MEDS ORDERED: Naloxone* 0.4 MG/ML 1 ML VIAL IV PRN (19:14)
[2018-05-11] MEDS ORDERED: Acetaminophen IV 1GM/100ML * 100 ML ONE (20:02)
[2018-05-11] MEDS ORDERED: traMADol TAB* 50 MG PO PRN (21:34)
[2018-05-11] MEDS: Docusate CAP* 100 MG PO SCH (22:24)
[2018-05-11] MEDS: traMADol TAB* 50 MG PO PRN (22:25)
[2018-05-11] MEDS: Nicotine Patch Removal NOTE PATCH OFF SCH (22:31)
--- NOTE | 2018-05-11 22:38 | OP ---
DATE OF OPERATION: 05/11/18 - ROOM #338 DATE OF : 45 SURGEON: Khushbu Zamora MD HVAC MECHANIC: MIGUEL Vuong ANESTHESIA: General. PRE-OP DIAGNOSIS: Intertrochanteric fracture of the right hip. POST-OP DIAGNOSIS: Intertrochanteric fracture of the right hip. OPERATIVE PROCEDURE: Open reduction internal fixation of the right hip. ESTIMATED BLOOD LOSS: About 100 mL. INDICATIONS FOR PROCEDURE: Lakshmi is a 72-year-old woman who fell at [facility] and suffered a fracture of her right hip. It is a nondisplaced intertrochanteric fracture. She presents for ORIF. DESCRIPTION OF PROCEDURE: The patient was brought to the operating room and was given a general anesthetic and placed in the supine position on the operating table. The right leg was placed in traction and the left leg was in stirrup. Preop x-ray showed good alignment of the fracture fragments. The skin of the right hip and thigh area was prepped and draped in usual sterile fashion. Lateral longitudinal incision was made along the lateral border of the femur. We dissected sharply through the fascia carol and the vastus lateralis. The muscle was separately dissected off of the lateral aspect of the femur. A guidewire was placed through the lateral cortex to the femur and into the center of the femoral head on both the AP and lateral views, measured for 95 mm screw, and then drilled and tapped over the guidewire and placed a 95 mm screw. I then placed a 135 degree 4-hole sideplate and secured with 4 bicortical lateral screws. The guidewire was removed and the position of the hardware and the fracture fragments checked on the C-arm in AP and lateral views and found to be satisfactory. The wound was copiously irrigated with saline. A Hemovac drain was placed. The vastus lateralis was repaired with #1 Vicryl suture. The fascia craol was repaired with #1 Vicryl suture. Subcutaneous tissue was closed with 2-0 Polysorb and the skin with skin cristobal. The wound was dressed with Xeroform, 4 x 4, ABD and tape. The patient tolerated the procedure well and was brought to the recovery room in good condition. [id number]/[facility] #: [id number] [facility]
[2018-05-12] MEDS: Clindamycin 600 MG IVPREMIX(* 600 MG/50 ML SDV IV SCH ×3 (02:10→17:43)
[2018-05-12] MEDS: traMADol TAB* 50 MG PO PRN ×3 (05:51→21:07)
[2018-05-12 06:03] LABS: Hematocrit 28 % (35-47); Hemoglobin 9.1 g/dl (12.0-16.0); Mean Corpuscular HGB Conc 32 g/dl (31-36); Mean Corpuscular Hemoglobin 26 pg (27-31); Mean Corpuscular Volume 80 fL (80-97); Mean Platelet Volume 8.5 fL (7.4-10.4); Platelet Count 296 10^3/ul (150-450); Red Blood Count 3.52 10^6/ul (4.00-5.40); Red Cell Distribution Width 19 % (10.5-15); White Blood Count 9.6 10^3/ul (3.5-10.8)
[2018-05-12 06:26] LABS: BUN/Creatinine Ratio 20.5 (8-20); EGFR Non-African American 45.5 (>60); Potassium 4.5 mmol/L (3.5-5.0)
[2018-05-12 06:33] LABS: ABS Basophils 0 10^3/ul (0-0.2); ABS Eosinophils 0 10^3/ul (0-0.6); ABS Lymphocytes 1.4 10^3/ul (1.0-4.8); ABS Monocytes 0.6 10^3/ul (0-0.8); ABS Neutrophils 7.5 10^3/ul (1.5-7.7); ABS Nucleated RBC 0 10^3/ul; Eosinophil % 0.1 %; Lymphocyte % 14.4 %; Nucleated Red Blood Cells % 0
[2018-05-12] MEDS: Insulin LISPRO* 1 UNITS UNIT SUBCUT SCH ×4 (07:57→21:33)
[2018-05-12] MEDS: busPIRone TAB* 15 MG PO SCH ×2 (08:34→21:07)
[2018-05-12] MEDS: Citalopram TAB* 20 MG PO SCH (08:35)
[2018-05-12] MEDS: Aspirin EC TAB* 81 MG TAB.EC PO SCH (08:35)
[2018-05-12] MEDS: hydrALAZINE TAB* 10 MG PO SCH ×2 (08:35→21:07)
[2018-05-12] MEDS: guaiFENesin ER TAB 600 MG PO PRN (08:35)
[2018-05-12] MEDS: Docusate CAP* 100 MG PO SCH ×2 (08:35→21:07)
[2018-05-12] MEDS: Metoprolol Tartrate TAB* 25 MG PO SCH ×2 (08:35→21:07)
[2018-05-12] MEDS: Nicotine PATCH 21 MG/24 HR* PATCH TRANSDERM SCH (08:36)
[2018-05-12] MEDS: Fluticasone NASAL SPRAY 50MCG* 16 gm SPRAY BTL BOTH NARES SCH (08:36)
[2018-05-12] MEDS: Acetaminophen TAB* 325 MG PO PRN ×2 (08:36→17:45)
[2018-05-12] MEDS: Magnesium Oxide TAB* 400 MG PO SCH (08:36)
[2018-05-12] MEDS: Tiotropium CAP.INH* CAP.INH/18 MCG (USE ORDER SET !) INH SCH (08:43)
[2018-05-12] MEDS ORDERED: Dextrose 50% Syringe 50 ML* 25 GM/50 ML SYRINGE IV PUSH PRN (10:31)
--- NOTE | 2018-05-12 10:39 | PN ---
Subjective Date of Service: 05/12/18 Interval History: Pt seen and examined. Meds and labs reviewed. CC: N/A. ROS: Denied NULL/dizziness, F/C, N/V, CP, SOB, increased cough, sputum production , abd pain, diarrhea, constipation, dysuria, myalgias, arthralgias, throat pain , and new skin lesions. The rest of the 14 point ROS are unremarkable. PHYSICAL EXAM: GEN APPEARANCE: Awake, not in acute distress HEENT: NC/AT, PERRLA, moist oral mucosa, (-) throat erythema NECK: Soft, supple, (-) cervical LAD, (-)JVD HEART: S1S2 WNL, RRR, No MRG CHEST: CTA, BL, GAE, No W/R/R ABD: Soft, ND/NT, NABS 4x Q EXT: No C/C/right foot with small amount of ecchymosis, small bruise noted to right lateral lower thigh, small amount of swelling noted to right thigh SKIN: Warm to touch PSYCH: No active psychosis, hallucinations, depression, SI/HI Family History: Unchanged from Admission Social History: Unchanged from Admission Past Medical History: Unchanged from Admission Objective Active Medications: Acetaminophen (Tylenol Tab*) 650 mg PO Q4H PRN PRN Reason: FEVER/PAIN Last Admin: 05/12/18 08:36 Dose: 650 mg Albuterol (Ventolin Hfa Inhaler*) 1 puff INH Q6H PRN PRN Reason: SOB/WHEEZING Last Admin: 05/12/18 08:37 Dose: 1 puff Aspirin (Aspirin Ec Tab*) 81 mg PO DAILY [facility] Last Admin: 05/12/18 08:35 Dose: 81 mg Atorvastatin Calcium (Lipitor*) 40 mg PO QPM [facility] Last Admin: 05/11/18 17:48 Dose: Not Given Bisacodyl (Dulcolax Supp*) 10 mg VT DAILY PRN PRN Reason: CONSTIPATION Buspirone HCl (Buspar Tab *) 7.5 mg PO 0900,2100 [facility] Last Admin: 05/12/18 08:34 Dose: 7.5 mg Citalopram Hydrobromide (Celexa Tab*) 20 mg PO 0900 [facility] Last Admin: 05/12/18 08:35 Dose: 20 mg Dextrose (D50w Syringe 50 Ml*) 12.5 gm IV PUSH .FOR FS < 60 - SS PRN PRN Reason: FS < 60 Docusate Sodium (Colace Cap*) 100 mg PO BID [facility] Last Admin: 05/12/18 08:35 Dose: 100 mg Enoxaparin Sodium (Lovenox(*)) 40 mg SUBCUT DAILY [facility] Fluticasone Propionate (Flonase Nasal [place] 50mcg*) 2 spray BOTH NARES DAILY [facility] Last Admin: 05/12/18 08:36 Dose: 2 spray Guaifenesin (Mucinex*) 600 mg PO Q12H PRN PRN Reason: CONGESTION Last Admin: 05/12/18 08:35 Dose: 600 mg Hydralazine HCl (Apresoline Tab*) 20 mg PO 899,2099 [facility] Last Admin: 05/12/18 08:35 Dose: 20 mg Ceftriaxone Sodium 1 gm/ (Sodium Chloride) 50 mls @ 200 mls/hr IVPB Q24H [facility] Last Admin: 05/11/18 12:53 Dose: 200 mls/hr Clindamycin HCl/Dextrose (Cleocin 600 Mg Ivpremix(*) Sdv) 600 mg in 50 mls @ 100 mls/hr IV Q8H [facility] Stop: 05/12/18 18:29 Last Admin: 05/12/18 08:39 Dose: 100 mls/hr Insulin Human Lispro (Humalog*) 0 units SUBCUT ACHS [facility]; Protocol Last Admin: 05/12/18 07:57 Dose: Not Given Magnesium Hydroxide (Milk Of Magnesia Liq*) 30 ml PO DAILY PRN PRN Reason: CONSTIPATION Magnesium Oxide (Magox 400 Tab*) 400 mg PO DAILY [facility] Last Admin: 05/12/18 08:36 Dose: 400 mg Metoprolol Tartrate (Lopressor Tab*) 25 mg PO 899,2099 [facility] Last Admin: 05/12/18 08:35 Dose: 25 mg Morphine Sulfate (Morphine Vial*) 2 mg IV Q4H PRN PRN Reason: PAIN Last Admin: 05/11/18 15:29 Dose: 2 mg Morphine Sulfate (Morphine Vial*) 1 mg IV Q2H PRN PRN Reason: PAIN - SEVERE Nicotine (Nicotine Patch 21 Mg/24 Hr*) 1 patch TRANSDERM DAILY [facility] Last Admin: 05/12/18 08:36 Dose: 1 patch Pharmacy Profile Note (Nicotine Patch Removal Note*) 1 note PATCH OFF 2100 [facility] Last Admin: 05/11/18 22:31 Dose: 1 note Polyethylene Glycol/Electrolytes (Miralax*) 17 gm PO DAILY PRN PRN Reason: CONSTIPATION Last Admin: 05/12/18 08:34 Dose: 17 gm Polyvinyl Alcohol (Polyvinyl Alcohol 1.4% Opth*) 1 drop BOTH EYES Q2H PRN PRN Reason: DRY EYE Pseudoephedrine HCl (Sudafed Tab*) 60 mg PO Q12H PRN PRN Reason: CONGESTION Last Admin: 05/10/18 21:56 Dose: 60 mg Senna (Senokot Tab*) 1 tab PO BEDTIME PRN PRN Reason: CONSTIPATION Last Admin: 05/11/18 22:24 Dose: 1 tab Sodium Biphosphate/Sodium Phosphate (Fleet Enema*) 1 bottle VT DAILY PRN PRN Reason: CONSTIPATION Tiotropium Era (Spiriva Cap.Inh*) 1 cap INH DAILY [facility] Last Admin: 05/12/18 08:43 Dose: 1 cap Tramadol HCl (Ultram*) 50 mg PO Q6H PRN PRN Reason: PAIN - MILD Last Admin: 05/12/18 05:51 Dose: 50 mg Tramadol HCl (Ultram*) 100 mg PO Q6H PRN PRN Reason: PAIN - MODERATE Vital Signs - 8 hr 05/12/18 05/12/18 05/12/18 03:27 03:55 05:51 Temperature 98.3 F Pulse Rate 75 Respiratory 17 18 Rate Blood Pressure 137/39 (mmHg) O2 Sat by Pulse 98 98 Oximetry 05/12/18 05/12/18 07:25 07:58 Temperature 97.9 F Pulse Rate 82 Respiratory 16 15 Rate Blood Pressure 166/41 (mmHg) O2 Sat by Pulse 95 Oximetry Oxygen Devices in Use Now: Nasal Cannula Result Diagrams: 05/12/18 05:47 05/12/18 05:47 Microbiology and Other Data: Microbiology 05/10/18 12:48 Urine Culture - Preliminary Urine Escherichia Coli 05/11/18 07:05 Nasal Screen MRSA (PCR) - Final Nasal Mrsa Not Detected Assess/Plan/Problems-Billing Assessment: Ms. Molina 72 y.o female recent left humerus fracture who was at [facility] [place] yesterday had a fall sustaining a right hip fracture. - Patient Problems (1) Closed right hip fracture Current Visit: Yes Status: Acute Code(s): S72.001A - FRACTURE OF UNSP PART OF NECK OF RIGHT FEMUR, INIT SNOMED Code(s): 467092959 Comment: -S/P ORIF POD #1, on 3 days of Clindamycin for surgical prophylaxis - PT/OT -Defer any additional input from ortho (2) COPD (chronic obstructive pulmonary disease) Current Visit: No Status: Acute Code(s): J44.9 - CHRONIC OBSTRUCTIVE PULMONARY DISEASE, UNSPECIFIED SNOMED Code(s): 07365604 Comment: - No signs of exacerbation - Continue Spiriva, nebs (3) Diabetes mellitus, type 2 Current Visit: No Status: Acute Comment: -Continue FS and ISS -Continue to hold metformin and may resume on D/C (4) E. coli UTI (urinary tract infection) Current Visit: No Status: Acute Code(s): N39.0 - URINARY TRACT INFECTION, SITE NOT SPECIFIED; B96.20 - UNSP ESCHERICHIA COLI THE CAUSE OF DISEASES [facility] SNOMED Code(s): 546132476 Comment: - Noted on urine culture 05/10/18 - Continue Rocephin, day #3 (5) Hypertension Current Visit: No Status: Acute Code(s): I10 - ESSENTIAL (PRIMARY) HYPERTENSION SNOMED Code(s): 43811257 Comment: -Continue watchful waiting (6) DVT prophylaxis Current Visit: No Status: Acute Code(s): SVZ8697 - SNOMED Code(s): 136053216 Comment: -Continue Lovenox SQ Status and Disposition: -PT/OT eval pending
--- NOTE | 2018-05-12 11:09 | PN ---
Progress Note - Progress Note Date of Service: 05/12/18 SOAP: Subjective: []Patient was seen and examined at bedside. She is feeling well. Right hip pain is well controlled. Denies CP, SOB, dizziness, nausea. Objective: []General: Well appearing, NAD RLE: Right hip dressing CDI, hemovac in place with 30 ml blood in canister. Thigh is soft and nontender, DF/PF intact, DP2+, sensation intact distally. Calves are supple and nontender without erythema, edema or palpable cords Assessment: []ORIF R hip 05/11/18 Dr Zamora Plan: []WBAT PT/OT Hemovac with 30 ml in the canister. Emptied and will monitor output, remove when minimal lovenox dvt prophylaxis x 30 days Vital Signs Temp 97.9 F 05/12/18 07:25 Pulse 82 05/12/18 07:25 Resp 15 05/12/18 07:58 BP 166/41 05/12/18 07:25 Pulse Ox 95 05/12/18 07:25 Intake & Output 05/11/18 05/12/18 05/12/18 18:59 06:59 18:59 Intake Total 1566 1510 53 Output Total 100 550 180 Balance 1466 960 -127 Intake: IV Fluids 1511 870 ABX - CLINDAMYCIN 50 LR 800 NS 1511 20 IVPB 55 53 ABX - CLINDAMYCIN 53 ceftriaxone 55 Oral 640 Output: Hemovac Amount #1 30 Urine 100 550 150 Other: Estimated Void Medium Medium # Voids 1 Laboratory Last Values WBC 9.6 10^3/ul (3.5-10.8) 05/12/18 05:47 RBC 3.52 10^6/ul (4.00-5.40) L 05/12/18 05:47 Hgb 9.1 g/dl (12.0-16.0) L 05/12/18 05:47 Hct 28 % (35-47) L 05/12/18 05:47 MCV 80 fL (80-97) 05/12/18 05:47 MCH 26 pg (27-31) L 05/12/18 05:47 MCHC 32 g/dl (31-36) 05/12/18 05:47 RDW 19 % (10.5-15) H 05/12/18 05:47 Plt Count 296 10^3/ul (150-450) 05/12/18 05:47 MPV 8.5 fL (7.4-10.4) 05/12/18 05:47 Neut % (Auto) 78.4 % 05/12/18 05:47 Lymph % (Auto) 14.4 % 05/12/18 05:47 [place] % (Auto) 6.7 % 05/12/18 05:47 Eos % (Auto) 0.1 % 05/12/18 05:47 Baso % (Auto) 0.4 % 05/12/18 05:47 Absolute Neuts (auto) 7.5 10^3/ul (1.5-7.7) 05/12/18 05:47 Absolute Lymphs (auto) 1.4 10^3/ul (1.0-4.8) 05/12/18 05:47 Absolute Monos (auto) 0.6 10^3/ul (0-0.8) 05/12/18 05:47 Absolute Eos (auto) 0 10^3/ul (0-0.6) 05/12/18 05:47 Absolute Basos (auto) 0 10^3/ul (0-0.2) 05/12/18 05:47 Absolute Nucleated RBC 0 10^3/ul 05/12/18 05:47 Nucleated RBC % 0 05/12/18 05:47 Hypochromasia 1+ 05/10/18 12:55 Microcytosis 2+ 05/10/18 12:55 Sodium 135 mmol/L (135-145) 05/12/18 05:47 Potassium 4.5 mmol/L (3.5-5.0) 05/12/18 05:47 Chloride 108 mmol/L (101-111) 05/12/18 05:47 Carbon Dioxide 20 mmol/L (22-32) L 05/12/18 05:47 Anion Gap 7 mmol/L (2-11) 05/12/18 05:47 BUN 24 mg/dL (6-24) 05/12/18 05:47 Creatinine 1.17 mg/dL (0.51-0.95) H 05/12/18 05:47 Est GFR ( Amer) 55.0 (>60) 05/12/18 05:47 Est GFR (Non-Af Amer) 45.5 (>60) 05/12/18 05:47 BUN/Creatinine Ratio 20.5 (8-20) H 05/12/18 05:47 Glucose 123 mg/dL (70-100) H 05/12/18 05:47 POC Glucose (mg/dL) 142 mg/dL (70-100) H 05/11/18 20:02 Lactic Acid 1.0 mmol/L (0.5-2.0) 05/10/18 12:55 Calcium 8.0 mg/dL (8.6-10.3) L 05/12/18 05:47 Total Bilirubin 0.20 mg/dL (0.2-1.0) 05/10/18 12:55 AST 17 U/L (13-39) 05/10/18 12:55 ALT 17 U/L (7-52) 05/10/18 12:55 Alkaline Phosphatase 98 U/L (34-104) 05/10/18 12:55 C-Reactive Protein 6.30 mg/L (<8.01) 05/10/18 12:55 Total Protein 6.6 g/dL (6.4-8.9) 05/10/18 12:55 Albumin 3.2 g/dL (3.2-5.2) 05/10/18 12:55 Globulin 3.4 g/dL (2-4) 05/10/18 12:55 Albumin/Globulin Ratio 0.9 (1-3) L 05/10/18 12:55 Urine Color Lissa 05/10/18 12:48 Urine Appearance Turbid 05/10/18 12:48 Urine pH 6.0 (5-9) 05/10/18 12:48 Ur Specific [place] 1.018 (1.010-1.030) 05/10/18 12:48 Urine Protein 3+(>=500 mg/dl) (Negative) A 05/10/18 12:48 Urine Ketones Negative (Negative) 05/10/18 12:48 Urine Blood 2+ (Negative) A 05/10/18 12:48 Urine Nitrate Negative (Negative) 05/10/18 12:48 Urine Bilirubin Negative (Negative) 05/10/18 12:48 Urine Urobilinogen Negative (Negative) 05/10/18 12:48 Ur Leukocyte Esterase Trace (Negative) A 05/10/18 12:48 Urine WBC (Auto) 3+(>20/hpf) (Absent) A 05/10/18 12:48 Urine RBC (Auto) 2+(6-10/hpf) (Absent) A 05/10/18 12:48 Ur Squamous Epith Cells Present (Absent) A 05/10/18 12:48 Urine Bacteria Absent (Absent) 05/10/18 12:48 Hyaline Casts Present (Absent) A 05/10/18 12:48 Urine Glucose Negative (Negative) 05/10/18 12:48 Hepatitis C Antibody Nonreactive (Nonreactive) 05/10/18 12:53 Hepatitis C Ab Index < 0.0 Index 05/10/18 12:53 Blood Type A Positive 05/11/18 04:58 Antibody Screen Negative 05/11/18 04:58
[2018-05-12] MEDS ORDERED: Insulin LISPRO* 1 UNITS UNIT SUBCUT SCH (11:30)
[2018-05-12 12:24] LABS: Hematocrit 27 % (35-47); Hemoglobin 8.9 g/dl (12.0-16.0); Mean Platelet Volume 8.3 fL (7.4-10.4); Platelet Count 298 10^3/ul (150-450)
[2018-05-12] MEDS: Enoxaparin(*) 40 MG/0.4 ML SYR SUBCUT SCH (12:28)
[2018-05-12 12:37] LABS: BUN/Creatinine Ratio 19.1 (8-20); Calcium 8.4 mg/dL (8.6-10.3); EGFR African American 46.2 (>60); EGFR Non-African American 38.2 (>60); Potassium 4.6 mmol/L (3.5-5.0)
[2018-05-12] MEDS: cefTRIAXone(*) 1 GM in NS 0.9% 50 ML* 50 ML IVPB SCH (12:45)
[2018-05-12] MEDS: Atorvastatin* 40 MG TAB PO SCH (17:45)
[2018-05-12] MEDS: Nicotine Patch Removal NOTE PATCH OFF SCH (21:32)
[2018-05-13] MEDS: Acetaminophen TAB* 325 MG PO PRN ×2 (01:02→12:43)
[2018-05-13 06:31] LABS: Hematocrit 26 % (35-47); Hemoglobin 8.5 g/dl (12.0-16.0); Mean Corpuscular HGB Conc 33 g/dl (31-36); Mean Corpuscular Hemoglobin 26 pg (27-31); Mean Corpuscular Volume 80 fL (80-97); Mean Platelet Volume 8.5 fL (7.4-10.4); Platelet Count 293 10^3/ul (150-450); Red Cell Distribution Width 19 % (10.5-15); White Blood Count 8.2 10^3/ul (3.5-10.8)
[2018-05-13 06:47] LABS: Albumin 2.4 g/dL (3.2-5.2); Albumin/Globulin Ratio 0.7 (1-3); BUN/Creatinine Ratio 19.7 (8-20); Calcium 8.5 mg/dL (8.6-10.3); EGFR Non-African American 41.4 (>60); Globulin 3.3 g/dL (2-4); Magnesium 2.5 mg/dL (1.9-2.7); Phosphorus 3.4 mg/dL (2.5-5.0); Potassium 4.1 mmol/L (3.5-5.0); Total Bilirubin 0.2 mg/dL (0.2-1.0); Total Protein 5.7 g/dL (6.4-8.9)
[2018-05-13 07:04] LABS: ABS Basophils 0.1 10^3/ul (0-0.2); ABS Eosinophils 0.1 10^3/ul (0-0.6); ABS Lymphocytes 1.6 10^3/ul (1.0-4.8); ABS Monocytes 0.5 10^3/ul (0-0.8); ABS Neutrophils 5.8 10^3/ul (1.5-7.7); ABS Nucleated RBC 0 10^3/ul; Eosinophil % 0.8 %; Lymphocyte % 20.2 %; Nucleated Red Blood Cells % 0
[2018-05-13] MEDS: Magnesium Oxide TAB* 400 MG PO SCH (08:11)
[2018-05-13] MEDS: Docusate CAP* 100 MG PO SCH (08:11)
[2018-05-13] MEDS: hydrALAZINE TAB* 10 MG PO SCH (08:12)
[2018-05-13] MEDS: Aspirin EC TAB* 81 MG TAB.EC PO SCH (08:12)
[2018-05-13] MEDS: Citalopram TAB* 20 MG PO SCH (08:13)
[2018-05-13] MEDS: Tiotropium CAP.INH* CAP.INH/18 MCG (USE ORDER SET !) INH SCH (08:13)
[2018-05-13] MEDS: Metoprolol Tartrate TAB* 25 MG PO SCH (08:14)
[2018-05-13] MEDS: Fluticasone NASAL SPRAY 50MCG* 16 gm SPRAY BTL BOTH NARES SCH (08:14)
[2018-05-13] MEDS: busPIRone TAB* 15 MG PO SCH (08:15)
[2018-05-13] MEDS: Nicotine PATCH 21 MG/24 HR* PATCH TRANSDERM SCH (08:16)
[2018-05-13] MEDS: Enoxaparin(*) 40 MG/0.4 ML SYR SUBCUT SCH (08:16)
[2018-05-13] MEDS: Insulin LISPRO* 1 UNITS UNIT SUBCUT SCH ×2 (08:17→12:28)
--- NOTE | 2018-05-13 11:04 | PN ---
Progress Note - Progress Note Date of Service: 05/13/18 SOAP: Subjective: Patient was seen and examined at bedside. She is feeling well without CP, SOB, dizziness, nausea. Right hip pain is not bothersome at rest. Hemovac last emptied around 1700 last night, no accumulation since. Objective: [] General: Well appearing, NAD RLE: Right hip dressing changed, incision CDI without surrounding erythema or discharge, hemovac in place with no blood in canister, drain was removed with tip intact and without complication. Thigh is soft and nontender, DF/PF intact , DP2+, sensation intact distally. Calves are supple and nontender without erythema, edema or palpable cords Assessment: []ORIF R hip 05/11/18 Dr Zamora Plan: []WBAT PT/OT Daily dry sterile dressing change. lovenox dvt prophylaxis x 30 days Ready for DC from ortho standpoint Follow up with Dr Zamora 10-14 days post op Vital Signs Temp 97.7 F 05/13/18 07:25 Pulse 82 05/13/18 07:25 Resp 18 05/13/18 08:09 BP 172/53 05/13/18 07:25 Pulse Ox 100 05/13/18 08:00 Intake & Output 05/12/18 05/13/18 05/13/18 18:59 06:59 18:59 Intake Total 563 360 Output Total 775 850 50 Balance -212 -490 -50 Intake: IVPB 163 ABX - CLINDAMYCIN 108 ceftriaxone 55 Oral 400 360 Output: Hemovac Amount #1 50 Urine 725 850 50 Other: Date of Last Bowel 05/13/18 Movement # Bowel Movements 2 1 Estimated Stool Amount Small Large # Voids 2 Laboratory Last Values WBC 8.2 10^3/ul (3.5-10.8) 05/13/18 06:10 RBC 3.30 10^6/ul (4.00-5.40) L 05/13/18 06:10 Hgb 8.5 g/dl (12.0-16.0) L 05/13/18 06:10 Hct 26 % (35-47) L 05/13/18 06:10 MCV 80 fL (80-97) 05/13/18 06:10 MCH 26 pg (27-31) L 05/13/18 06:10 MCHC 33 g/dl (31-36) 05/13/18 06:10 RDW 19 % (10.5-15) H 05/13/18 06:10 Plt Count 293 10^3/ul (150-450) 05/13/18 06:10 MPV 8.5 fL (7.4-10.4) 05/13/18 06:10 Neut % (Auto) 71.7 % 05/13/18 06:10 Lymph % (Auto) 20.2 % 05/13/18 06:10 [place] % (Auto) 6.4 % 05/13/18 06:10 Eos % (Auto) 0.8 % 05/13/18 06:10 Baso % (Auto) 0.9 % 05/13/18 06:10 Absolute Neuts (auto) 5.8 10^3/ul (1.5-7.7) 05/13/18 06:10 Absolute Lymphs (auto) 1.6 10^3/ul (1.0-4.8) 05/13/18 06:10 Absolute Monos (auto) 0.5 10^3/ul (0-0.8) 05/13/18 06:10 Absolute Eos (auto) 0.1 10^3/ul (0-0.6) 05/13/18 06:10 Absolute Basos (auto) 0.1 10^3/ul (0-0.2) 05/13/18 06:10 Absolute Nucleated RBC 0 10^3/ul 05/13/18 06:10 Nucleated RBC % 0 05/13/18 06:10 Hypochromasia 1+ 05/13/18 06:10 Microcytosis 2+ 05/10/18 12:55 Elliptocytes 1+ 05/13/18 06:10 Rouleaux 1+ 05/13/18 06:10 Sodium 134 mmol/L (135-145) L 05/13/18 06:10 Potassium 4.1 mmol/L (3.5-5.0) 05/13/18 06:10 Chloride 104 mmol/L (101-111) 05/13/18 06:10 Carbon Dioxide 24 mmol/L (22-32) 05/13/18 06:10 Anion Gap 6 mmol/L (2-11) 05/13/18 06:10 BUN 25 mg/dL (6-24) H 05/13/18 06:10 Creatinine 1.27 mg/dL (0.51-0.95) H 05/13/18 06:10 Est GFR ( Amer) 50.0 (>60) 05/13/18 06:10 Est GFR (Non-Af Amer) 41.4 (>60) 05/13/18 06:10 BUN/Creatinine Ratio 19.7 (8-20) 05/13/18 06:10 Glucose 112 mg/dL (70-100) H 05/13/18 06:10 POC Glucose (mg/dL) 114 mg/dL (70-100) H 05/13/18 08:08 Lactic Acid 1.0 mmol/L (0.5-2.0) 05/10/18 12:55 Calcium 8.5 mg/dL (8.6-10.3) L 05/13/18 06:10 Phosphorus 3.4 mg/dL (2.5-5.0) 05/13/18 06:10 Magnesium 2.5 mg/dL (1.9-2.7) 05/13/18 06:10 Total Bilirubin 0.20 mg/dL (0.2-1.0) 05/13/18 06:10 AST 16 U/L (13-39) 05/13/18 06:10 ALT 11 U/L (7-52) 05/13/18 06:10 Alkaline Phosphatase 77 U/L (34-104) 05/13/18 06:10 C-Reactive Protein 6.30 mg/L (<8.01) 05/10/18 12:55 Total Protein 5.7 g/dL (6.4-8.9) L 05/13/18 06:10 Albumin 2.4 g/dL (3.2-5.2) L 05/13/18 06:10 Globulin 3.3 g/dL (2-4) 05/13/18 06:10 Albumin/Globulin Ratio 0.7 (1-3) L 05/13/18 06:10 Urine Color Lissa 05/10/18 12:48 Urine Appearance Turbid 05/10/18 12:48 Urine pH 6.0 (5-9) 05/10/18 12:48 Ur Specific [place] 1.018 (1.010-1.030) 05/10/18 12:48 Urine Protein 3+(>=500 mg/dl) (Negative) A 05/10/18 12:48 Urine Ketones Negative (Negative) 05/10/18 12:48 Urine Blood 2+ (Negative) A 05/10/18 12:48 Urine Nitrate Negative (Negative) 05/10/18 12:48 Urine Bilirubin Negative (Negative) 05/10/18 12:48 Urine Urobilinogen Negative (Negative) 05/10/18 12:48 Ur Leukocyte Esterase Trace (Negative) A 05/10/18 12:48 Urine WBC (Auto) 3+(>20/hpf) (Absent) A 05/10/18 12:48 Urine RBC (Auto) 2+(6-10/hpf) (Absent) A 05/10/18 12:48 Ur Squamous Epith Cells Present (Absent) A 05/10/18 12:48 Urine Bacteria Absent (Absent) 05/10/18 12:48 Hyaline Casts Present (Absent) A 05/10/18 12:48 Urine Glucose Negative (Negative) 05/10/18 12:48 Hepatitis C Antibody Nonreactive (Nonreactive) 05/10/18 12:53 Hepatitis C Ab Index < 0.0 Index 05/10/18 12:53 Blood Type A Positive 05/11/18 04:58 Antibody Screen Negative 05/11/18 04:58
[2018-05-13] MEDS: cefTRIAXone(*) 1 GM in NS 0.9% 50 ML* 50 ML IVPB SCH (12:45)
--- NOTE | 2018-05-13 12:47 | DS ---
CC: Dr. Vivek Forrest; Dr. Rishi Lund; Dr. Yamilet Winn DISCHARGE SUMMARY: DATE OF ADMISSION: DATE OF DISCHARGE: 05/13/18 DISCHARGE DIAGNOSES: As follows: 1. Closed right hip fracture, status post ORIF. 2. Escherichia coli urinary tract infection. 3. History of chronic obstructive pulmonary disease. 4. History of diabetes mellitus. DISCHARGE MEDICATIONS: As follows: 1. Albuterol sulfate 2 puffs inhalation q.6 p.r.n. 2. Artificial tears 1 drop to both eyes q.2 hours p.r.n. 3. Aspirin 81 mg p.o. daily. 4. Atorvastatin 40 mg p.o. q.p.m. 5. Bisacodyl 10 mg p.r. p.r.n. daily. 6. Buspirone 7.5 mg p.o. b.i.d. 7. Citalopram 20 mg p.o. daily. 8. Lovenox 40 mg subcu daily. 9. Fluticasone nasal spray 2 sprays to both nares daily. 10. Hydralazine 20 mg p.o. b.i.d. 11. Magnesium hydroxide 30 mL p.o. daily. 12. Magnesium oxide 400 mg p.o. daily. 13. Metoprolol tartrate 25 mg p.o. b.i.d. 14. Nicotine patch 21 mg transdermal patch daily. 15. Fleet Enema 1 enema p.r. daily p.r.n. 16. Tiotropium 1 cap inhalation daily. 17. Amlodipine 10 mg p.o. daily. 18. Clindamycin 300 mg p.o. t.i.d. for 2 more days for both UTI and surgical prophylaxis. 19. Floranex tab 2 tabs p.o. daily for 5 more days. 20. Metformin 500 mg p.o. b.i.d. 21. Senna Plus 2 tabs p.o. q.h.s. 22. Tramadol 100 mg p.o. p.r.n. and 50 mg p.o. q.4 p.r.n. for breakthrough. HISTORY OF PRESENT ILLNESS/HOSPITAL COURSE: The patient is a 72-year-old woman, who fell at [facility] and suffered a fractured right hip with a nondisplaced intertrochanteric fracture. She then underwent ORIF on 05/11/18 and had an unremarkable postoperative course. She was also diagnosed wit h UTI, which is uncertain whether it may have made her more prone to falls. Initially was placed on Rocephin; however, it was changed to clindamycin to treat both UTI as well as for surgical prophylaxi s status post ORIF. She is to complete 2 more days to complete a 10-day treatment therapy for her UT I. She had been advised to follow up and/or call her PCP within 3 days post discharge. She was advised t o follow up with Dr. Zamora in 2 weeks and to call her office to make/confirm an appointment. She was advised that if her symptoms resume or develop new ones or feel unwell for any reason, to call her P CP first and if her PCP cannot entertain her due to scheduling issues alone, to call [facility] if the issue is nonemergent. She was advised to call my office regarding any questions, concerns , or further clarifications regarding her discharge plans and/or prescriptions and to take her medica tions as prescribed. REVIEW OF SYSTEMS: The patient denied any recent headaches, dizziness, fevers, chills, nausea, vomit ing, chest pain, shortness of breath, increased coughing or sputum production, abdominal pain, diarrh ea, constipation, pain and/or increased frequency on urination, myalgias, arthralgias, throat pain, o r new skin lesions. The rest of the 14-point review of systems is otherwise unremarkable. PHYSICAL EXAMINATION: General Appearance: The patient is awake, not in acute distress. HEENT: Nor mocephalic, atraumatic. PERRLA. Extraocular muscles intact. Negative for icterus. Moist oral mucos a. Negative throat erythema. Neck is soft, supple with no cervical lymphadenopathy, no JVD. Heart: S1, S2 within normal limits. Regular rate and rhythm. No murmurs, rubs, or gallops. Chest: Brittani r to auscultation bilaterally. Good air entry. No wheezes, rales, or rhonchi. Abdomen is soft, non distended, nontender. Normoactive bowel sounds x4 quadrants. Extremities: No cyanosis or clubbing. She does have some slight edema on the postoperative right lower extremity. Skin is warm to touch. Psych: No active psychosis, hallucinations, depression, or suicidal ideation. TIME SPENT: The total time spent evaluating the patient, reviewing pertinent data, and appropriate d ocumentation is 55 minutes. [id number]/[facility] #: [id number]
[2018-05-13 13:36] VITALS: BP 151/51
--- NOTE | 2018-05-13 19:50 | DS ---
DISCHARGE SUMMARY: ADDENDUM: I have just been informed when the patient left our facility a few hours ago that the patient was positive for ESBL E. coli. Unfortunately, clindamycin was not part of the panel that was tested for the antibiotics and it was resistant to ceftriaxone, which she has been on in the hospital. Therefore, I have re- prescribed Augmentin, which the ESBL E. coli is sensitive to, to her pharmacy and I have informed nursing staff to call [facility] to update their nursing sign-out. [id number]/[facility] #: [id number] LORET[place]
== END 2018-05-13 14:15 | DRG 481 ==
LOC: ED 12:42 → SSU 16:05
PROVIDERS: ADMIT Internal Medicine; ATTEND Student in an Organized Health Care Education/Training Program
PROC: 0QSB04Z Reposition Right Lower Femur with Internal Fixation Device, Open Approach (ICD-10-PCS; principal; 2018-05-11 16:30)
DX: S72.144A Nondisplaced intertrochanteric fracture of right femur, initial encounter for closed fracture (principal); N39.0 Urinary tract infection, site not specified; K21.9 Gastro-esophageal reflux disease without esophagitis; E11.9 Type 2 diabetes mellitus without complications; I10 Essential (primary) hypertension; J44.9 Chronic obstructive pulmonary disease, unspecified; M19.90 Unspecified osteoarthritis, unspecified site; F41.9 Anxiety disorder, unspecified; G51.0 Bell's palsy; F32.9 Major depressive disorder, single episode, unspecified; E78.5 Hyperlipidemia, unspecified; I08.1 Rheumatic disorders of both mitral and tricuspid valves; Z66 Do not resuscitate; F17.200 Nicotine dependence, unspecified, uncomplicated; B96.20 Unspecified Escherichia coli [E. coli] as the cause of diseases classified elsewhere; W17.89XA Other fall from one level to another, initial encounter; Z80.3 Family history of malignant neoplasm of breast; Z82.49 Family history of ischemic heart disease and other diseases of the circulatory system; Z90.710 Acquired absence of both cervix and uterus; Z90.49 Acquired absence of other specified parts of digestive tract; Z86.73 Personal history of transient ischemic attack (TIA), and cerebral infarction without residual deficits; Z98.1 Arthrodesis status; Z88.5 Allergy status to narcotic agent; Z81.1 Family history of alcohol abuse and dependence; Y92.002 Bathroom of unspecified non-institutional (private) residence as the place of occurrence of the external cause; Z79.82 Long term (current) use of aspirin; Z79.84 Long term (current) use of oral hypoglycemic drugs; Z79.01 Long term (current) use of anticoagulants; Z99.81 Dependence on supplemental oxygen; R11.0 Nausea
CPT/HCPCS: 36415; 71045; 80048; 80053; 81003; 81015; 83605; 83735; 84100; 85014; 85018; 85025; 85049; 86140; 86803; 86850; 86900; 86901; 87077; 87086; 87186; 87641; 93005; 94640; 99283; A9270-GY; C1713; C1776; G8978-GP-CM; G8979-GP-CI; G8987-GO-CM; G8988-GO-CI; J0696; J1650; J2270; J2405; J3010